=== PATIENT | male | born 1975 | race Caucasian/White ===

== ENCOUNTER 2017-02-08 11:21 | Day surgery (SDC) | payer MEDICARE, OTHER ==
--- NOTE | 2017-02-08 07:11 | P.GSHP ---
History of Present Illness H&P Date: 02/08/17 CHIEF COMPLAINT: GERD and colon screen HISTORY OF PRESENT ILLNESS: The patient is a 41-year-old male who presents reports gastroesophageal reflux disease and need for colon screen for high-risk colon polyps. Upper and lower endoscopy were offered for further evaluation and management. PAST MEDICAL HISTORY: Please see list. PAST SURGICAL HISTORY: Please see list. MEDICATIONS: Please see list. ALLERGIES: Please see list. SOCIAL HISTORY: No illicit drug use FAMILY HISTORY: No reports of Crohn disease or ulcerative colitis. REVIEW OF ORGAN SYSTEMS: CONSTITUTIONAL: No reports of fevers or chills. GI: Denies any blood in stools or constipation. PHYSICAL EXAM: VITAL SIGNS: Stable GENERAL: Well-developed pleasant in no acute distress. HEENT: No scleral icterus. Extraocular movements grossly intact. Moist buccal mucosa. NECK: Supple without lymphadenopathy. CHEST: Unlabored respirations. Equal bilateral excursions. CARDIOVASCULAR: Regular rate and rhythm. Distal 2+ pulses. ABDOMEN: Soft, nondistended. MUSCULOSKELETAL: No clubbing, cyanosis, or edema. ASSESSMENT: 1. Gastroesophageal reflux disease 2. Colon screen. PLAN: 1. Recommend proceeding with an upper and lower endoscopy
[2017-02-08 12:04] VITALS: TEMP 97.8
[2017-02-08] MEDS ORDERED: LIDOCAINE 1% 20 ML VIAL (10MG/ML) FOR IV START INTRADERMA PRN (12:04)
[2017-02-08] MEDS ORDERED: LACTATED RINGERS 1,000 ML IV SCH (12:04)
[2017-02-08 12:09] LABS: Glucose,Whole Blood 99 mg/dL (75-99)
[2017-02-08] MEDS ORDERED: PROPOFOL 10 MG/ML 20 ML VIAL IV ONE (12:15)
[2017-02-08] MEDS ORDERED: LIDOCAINE 1% INJ 10MG/ML (20 ML MDV) ONE (12:15)
--- NOTE | 2017-02-08 12:52 | P.PCN ---
Date of Procedure: 02/08/17 Preoperative Diagnosis: Postoperative Diagnosis: Procedure(s) Performed: Implants: Indications for Procedure: Operative Findings: Description of Procedure: PREOPERATIVE DIAGNOSIS: Gastritis. POSTOPERATIVE DIAGNOSIS: Chronic gastritis with stigmata of prior bleed Gastroesophageal reflux disease. OPERATION: Esophagogastroduodenoscopy with biopsies along antrum. SURGEON: Kailey Reynolds MD ANESTHESIA: MAC. INDICATIONS: The patient is a 41-year-old female who presents with a history of reflux disease. Benefits and risks of the procedure were described. Informed consent was obtained. DESCRIPTION: The patient was brought into the endoscopy suite and laid in the left lateral decubitus position. An Olympus gastroscope was passed along the posterior oropharynx down to the distal esophagus where the squamocolumnar junction was encountered at 45 cm from the incisors. The stomach was entered and minimal bile reflux was found. Additional findings are listed below. Biopsies with cold forceps were obtained of the antrum. The first through third portion of the duodenum was examined and unremarkable. Retroflexion of the scope confirmed Hill grade 3 lower esophageal valve. The squamocolumnar junction demostrated no LA grade A erosive esophagitis. The stomach was desufflated. The patient tolerated the procedure well. FINDINGS: Squamocolumnar junction 45 cm from the incisors. Hill grade 3 lower esophageal valve. No LA grade A erosive esophagitis. No active duodenitis. Chronic gastritis with stigmata of prior bleed RECOMMENDATIONS: Upper endoscopy as needed.
--- NOTE | 2017-02-08 12:54 | P.PCN ---
Date of Procedure: 02/08/17 Preoperative Diagnosis: Postoperative Diagnosis: Procedure(s) Performed: Implants: Indications for Procedure: Operative Findings: Description of Procedure: PREOPERATIVE DIAGNOSIS: Blood in stools. POSTOPERATIVE DIAGNOSIS: Blood in stools. Diverticulosis, scattered. OPERATION: Colonoscopy to the ileocecal valve and appendiceal orifice. SURGEON: Kailey Reynolds MD. ANESTHESIA: MAC. INDICATIONS: The patient is a 41-year-old female who presents with history of blood in stools. Benefits and risks were described and informed consent was obtained. DESCRIPTION OF PROCEDURE: The patient had undergone Gatorade, MiraLAX and Dulcolax prep. He had been brought into the operating room and laid in the left lateral decubitus position. After adequate intravenous sedation, the rectum was examined with 2% lidocaine jelly. No external hemorrhoids were encountered. The rectal tone was within normal limits. No lesions were palpated in the rectal vault. The prostate was smooth and without abnormality. An Olympus colonoscope was advanced until the ileocecal valve and appendiceal orifice were clearly viewed. The prep was excellent with clear visualization of the mucosal folds. The scope was removed with visualization of each mucosal fold. Scattered diverticulosis was encountered. No colonic polyps were found. No evidence of focal colitis was found. Retroflexion of the scope demonstrated grade 1 internal hemorrhoids without active bleeding or inflammation. The colon was desufflated. The patient had tolerated the procedure well. Withdrawal time was over 6 minutes. FINDINGS: Internal hemorrhoids, grade 1 No external prolapsed hemorrhoids. No arteriovenous malformations. No adenomatous polyps. No focal colitis. RECOMMENDATIONS: Lower endoscopy per screening guidelines at age 50. Plan - Discharge Summary New Discharge Prescriptions: No Action OLANZapine [ZyPREXA] 10 mg PO DAILY Lisinopril [Zestril] 2.5 mg PO DAILY Levothyroxine Sodium 125 mcg PO DAILY busPIRone HCL 10 mg PO BID OLANZapine [ZyPREXA] 5 mg PO HS [place] Carbonate ER [Lithobid] 450 mg PO BID Pioglitazone HCl 45 mg PO DAILY Atorvastatin Calcium [Lipitor] 10 mg PO HS metFORMIN HCL [Glucophage] 1,000 mg PO BID Divalproex [Depakote] 1,000 mg PO BID levETIRAcetam [Keppra] 500 mg PO BID Discharge Medication List Atorvastatin Calcium [Lipitor] 10 mg PO HS 02/08/17 [History] Divalproex [Depakote] 1,000 mg PO BID 02/08/17 [History] Levothyroxine Sodium 125 mcg PO DAILY 02/08/17 [History] Lisinopril [Zestril] 2.5 mg PO DAILY 02/08/17 [History] [place] Carbonate ER [Lithobid] 450 mg PO BID 02/08/17 [History] OLANZapine [ZyPREXA] 5 mg PO HS 02/08/17 [History] OLANZapine [ZyPREXA] 10 mg PO DAILY 02/08/17 [History] Pioglitazone HCl 45 mg PO DAILY 02/08/17 [History] busPIRone HCL 10 mg PO BID 02/08/17 [History] levETIRAcetam [Keppra] 500 mg PO BID 02/08/17 [History] metFORMIN HCL [Glucophage] 1,000 mg PO BID 02/08/17 [History]
[2017-02-08 13:19] VITALS: BP 124/84; PULSE 67; RESP 18
== END 2017-02-08 13:22 | disposition home or self-care (01) ==
LOC: ORWHC2ENDO 11:21
PROVIDERS: ATTEND Surgery Plastic and Reconstructive Surgery
DX: K57.30 Diverticulosis of large intestine without perforation or abscess without bleeding (principal); K64.0 First degree hemorrhoids; K29.50 Unspecified chronic gastritis without bleeding; I10 Essential (primary) hypertension; E11.9 Type 2 diabetes mellitus without complications; Z79.84 Long term (current) use of oral hypoglycemic drugs; G40.909 Epilepsy, unspecified, not intractable, without status epilepticus; Z79.899 Other long term (current) drug therapy
CPT/HCPCS: 88305; 88342; 45378; 43239; J2001; J2704

== ENCOUNTER → 2017-03-17 | Outpatient (CLI) | payer MEDICARE, OTHER | END | disposition home or self-care (01) | LOC: LABWHC1 07:45 | PROVIDERS: ATTEND Psychiatry & Neurology Neurology | DX: G40.309 Generalized idiopathic epilepsy and epileptic syndromes, not intractable, without status epilepticus (principal) | CPT/HCPCS: 36415; 80164; 80177 ==

== ENCOUNTER → 2017-05-20 | Outpatient (CLI) | payer MEDICARE, OTHER ==
[2017-05-20 10:38] LABS: Hemoglobin A1C 6.1 % (4.2-6.1)
== END | disposition home or self-care (01) ==
LOC: LABWHC1 08:16
PROVIDERS: ATTEND Psychiatry & Neurology Neurology
DX: E11.9 Type 2 diabetes mellitus without complications (principal); E13.9 Other specified diabetes mellitus without complications
CPT/HCPCS: 36415; 80164; 80177; 83036

== ENCOUNTER 2018-12-03 09:18 | Inpatient (IN) | payer MEDICARE, OTHER ==
[2018-12-03] MEDS ORDERED: SODIUM CHLORIDE 0.9% 1,000 ML IV STA (09:51)
--- NOTE | 2018-12-03 09:59 | ED ---
Weakness HPI <Chandan Mahan - Last Filed: 12/03/18 14:32> - General Source: patient, family, EMS, RN notes reviewed Mode of arrival: EMS Limitations: no limitations <Lalo Pop - Last Filed: 12/03/18 14:37> - General Chief complaint: Weakness Stated complaint: weakness Time Seen by Provider: 12/03/18 09:38 - History of Present Illness Initial comments: This a 43-year-old male presents emergency department via EMS with chief complaint of weakness. Father room states that he's had progressive weakness the last few days with increasing cough congestion. Patient's had reported fever at home. Patient states he just feels rundown. He father did state that there is been some recent medication changes but is not exactly sure which medications these are. Patient has had some tremoring there is had this in the past. Patient denies chest pain, headache, dizziness or focal weakness. He's had some nausea no vomiting no diarrhea no constipation. Patient is developmentally delayed, history of diabetes, Hyperlipidemia, seizure disorder, hyperthyroidism. (Lalo Pop) - Related Data Home Medications Medication Instructions Recorded Confirmed Atorvastatin Calcium [Lipitor] 10 mg PO HS 02/08/17 12/03/18 Divalproex [Depakote] 1,000 mg PO BID 02/08/17 12/03/18 Levothyroxine Sodium 125 mcg PO DAILY 02/08/17 12/03/18 Lisinopril [Zestril] 2.5 mg PO DAILY 02/08/17 12/03/18 [place] Carbonate ER [Lithobid] 450 mg PO BID 02/08/17 12/03/18 Pioglitazone HCl 45 mg PO DAILY 02/08/17 12/03/18 busPIRone HCL 10 mg PO BID 02/08/17 12/03/18 levETIRAcetam [Keppra] 500 mg PO BID 02/08/17 12/03/18 metFORMIN HCL [Glucophage] 1,000 mg PO BID 02/08/17 12/03/18 Allergies Allergy/AdvReac Type Severity Reaction Status Date / Time No Known Allergies Allergy Verified 12/03/18 10:09 Review of Systems ROS Other: All systems not noted in ROS Statement are negative. <Chandan Mahan - Last Filed: 12/03/18 14:32> ROS Other: All systems not noted in ROS Statement are negative. <Lalo Pop - Last Filed: 12/03/18 14:37> ROS Statement: Those systems with pertinent positive or pertinent negative responses have been documented in the HPI. Past Medical History Past Medical History: Diabetes Mellitus, Hyperlipidemia, Seizure Disorder, Thyr oid Disorder Additional Past Medical History / Comment(s): developmentally delayed; anemia History of Any Multi-Drug Resistant Organisms: None Reported Past Surgical History: No Surgical Hx Reported Past Anesthesia/Blood Transfusion Reactions: No Reported Reaction Past Psychological History: No Psychological Hx Reported Smoking Status: Never smoker Past Alcohol Use History: None Reported Past Drug Use History: None Reported <Lalo Pop - Last Filed: 12/03/18 14:37> General Exam Limitations: no limitations General appearance: alert, in no apparent distress, lethargic Head exam: Present: atraumatic, normocephalic, normal inspection Eye exam: Present: normal appearance, PERRL, EOMI. Absent: scleral icterus, conjunctival injection, periorbital swelling ENT exam: Present: normal exam, normal oropharynx, mucous membranes moist Neck exam: Present: normal inspection, full ROM. Absent: tenderness, me ningismus, lymphadenopathy Respiratory exam: Present: rales, rhonchi. Absent: normal lung sounds bilaterally, respiratory distress, wheezes, stridor Cardiovascular Exam: Present: regular rate, normal rhythm, normal heart sounds. Absent: systolic murmur, diastolic murmur, rubs, gallop, clicks GI/Abdominal exam: Present: soft, normal bowel sounds. Absent: distended, tenderness, guarding, rebound, rigid Neurological exam: Present: alert, oriented X3, CN II-XII intact Skin exam: Present: warm, dry, intact, normal color. Absent: rash <Lalo Pop - Last Filed: 12/03/18 14:37> Course Vital Signs 12/03/18 12/03/18 12/03/18 09:26 12:30 14:25 Temperature 98.6 F Pulse Rate 85 77 92 Respiratory 22 18 18 Rate Blood Pressure 122/70 116/56 113/54 O2 Sat by Pulse 99 99 98 Oximetry Medical Decision Making - Lab Data Result diagrams: 12/03/18 10:14 12/03/18 10:14 <Chandan Mahan - Last Filed: 12/03/18 14:32> - Lab Data Result diagrams: 12/03/18 10:14 12/03/18 10:14 <Lalo Pop - Last Filed: 12/03/18 14:37> - Medical Decision Making Case discussed with practitioner Louann. Case also discussed with Dr. go, who will admit covering for Dr. Hermosillo. He does request nephrology consult and psychology consult. (Chandan Mahan) - Lab Data Lab Results 12/03/18 12/03/18 12/03/18 Range/Units 10:14 10:14 10:14 WBC 8.6 (3.8-10.6) k/uL RBC 3.77 L (4.30-5.90) m/uL Hgb 10.8 L (13.0-17.5) gm/dL Hct 36.0 L (39.0-53.0) % MCV 95.7 (80.0-100.0) fL MCH 28.6 (25.0-35.0) pg MCHC 29.9 L (31.0-37.0) g/dL RDW 13.4 (11.5-15.5) % Plt Count 240 (150-450) k/uL Neutrophils % 66 % Lymphocytes % 16 % Monocytes % 15 % Eosinophils % 1 % Basophils % 0 % Neutrophils # 5.7 (1.3-7.7) k/uL Lymphocytes # 1.4 (1.0-4.8) k/uL Monocytes # 1.3 H (0-1.0) k/uL Eosinophils # 0.1 (0-0.7) k/uL Basophils # 0.0 (0-0.2) k/uL PT (9.0-12.0) sec INR (<1.2) APTT (22.0-30.0) sec Sodium 140 (137-145) mmol/L Potassium 4.7 (3.5-5.1) mmol/L Chloride 107 (98-107) mmol/L Carbon Dioxide 29 (22-30) mmol/L Anion Gap 4 mmol/L BUN 25 H (9-20) mg/dL Creatinine 1.65 H (0.66-1.25) mg/dL Est GFR (CKD-EPI)AfAm 58 (>60 ml/min/1.73 sqM) Est GFR (CKD-EPI)NonAf 50 (>60 ml/min/1.73 sqM) Glucose 77 (74-99) mg/dL Plasma Lactic Acid Roly 1.1 (0.7-2.0) mmol/L Calcium 9.7 (8.4-10.2) mg/dL Magnesium 2.9 H (1.6-2.3) mg/dL Total Bilirubin 0.6 (0.2-1.3) mg/dL AST 21 (17-59) U/L ALT 29 (21-72) U/L Alkaline Phosphatase 55 (38-126) U/L Troponin I (0.000-0.034) ng/mL NT-Pro-B Natriuret Pep pg/mL Total Protein 6.4 (6.3-8.2) g/dL Albumin 3.8 (3.5-5.0) g/dL Urine Color Urine Appearance (Clear) Urine pH (5.0-8.0) Ur Specific [place] (1.001-1.035) Urine Protein (Negative) Urine Glucose (UA) (Negative) Urine Ketones (Negative) Urine Blood (Negative) Urine Nitrite (Negative) Urine Bilirubin (Negative) Urine Urobilinogen (<2.0) mg/dL Ur Leukocyte Esterase (Negative) Valproic Acid ug/mL [place] mmol/L Influenza Type A RNA (Not Detectd) Influenza Type B (PCR) (Not Detectd) 12/03/18 12/03/18 12/03/18 Range/Units 10:14 10:14 10:14 WBC (3.8-10.6) k/uL RBC (4.30-5.90) m/uL Hgb (13.0-17.5) gm/dL Hct (39.0-53.0) % MCV (80.0-100.0) fL MCH (25.0-35.0) pg MCHC (31.0-37.0) g/dL RDW (11.5-15.5) % Plt Count (150-450) k/uL Neutrophils % % Lymphocytes % % Monocytes % % Eosinophils % % Basophils % % Neutrophils # (1.3-7.7) k/uL Lymphocytes # (1.0-4.8) k/uL Monocytes # (0-1.0) k/uL Eosinophils # (0-0.7) k/uL Basophils # (0-0.2) k/uL PT 10.4 (9.0-12.0) sec INR 1.0 (<1.2) APTT 21.6 L (22.0-30.0) sec Sodium (137-145) mmol/L Potassium (3.5-5.1) mmol/L Chloride (98-107) mmol/L Carbon Dioxide (22-30) mmol/L Anion Gap mmol/L BUN (9-20) mg/dL Creatinine (0.66-1.25) mg/dL Est GFR (CKD-EPI)AfAm (>60 ml/min/1.73 sqM) Est GFR (CKD-EPI)NonAf (>60 ml/min/1.73 sqM) Glucose (74-99) mg/dL Plasma Lactic Acid Roly (0.7-2.0) mmol/L Calcium (8.4-10.2) mg/dL Magnesium (1.6-2.3) mg/dL Total Bilirubin (0.2-1.3) mg/dL AST (17-59) U/L ALT (21-72) U/L Alkaline Phosphatase (38-126) U/L Troponin I <0.012 (0.000-0.034) ng/mL NT-Pro-B Natriuret Pep 67 pg/mL Total Protein (6.3-8.2) g/dL Albumin (3.5-5.0) g/dL Urine Color Urine Appearance (Clear) Urine pH (5.0-8.0) Ur Specific [place] (1.001-1.035) Urine Protein (Negative) Urine Glucose (UA) (Negative) Urine Ketones (Negative) Urine Blood (Negative) Urine Nitrite (Negative) Urine Bilirubin (Negative) Urine Urobilinogen (<2.0) mg/dL Ur Leukocyte Esterase (Negative) Valproic Acid ug/mL [place] mmol/L Influenza Type A RNA (Not Detectd) Influenza Type B (PCR) (Not Detectd) 12/03/18 12/03/18 12/03/18 Range/Units 10:14 10:14 12:27 WBC (3.8-10.6) k/uL RBC (4.30-5.90) m/uL Hgb (13.0-17.5) gm/dL Hct (39.0-53.0) % MCV (80.0-100.0) fL MCH (25.0-35.0) pg MCHC (31.0-37.0) g/dL RDW (11.5-15.5) % Plt Count (150-450) k/uL Neutrophils % % Lymphocytes % % Monocytes % % Eosinophils % % Basophils % % Neutrophils # (1.3-7.7) k/uL Lymphocytes # (1.0-4.8) k/uL Monocytes # (0-1.0) k/uL Eosinophils # (0-0.7) k/uL Basophils # (0-0.2) k/uL PT (9.0-12.0) sec INR (<1.2) APTT (22.0-30.0) sec Sodium (137-145) mmol/L Potassium (3.5-5.1) mmol/L Chloride (98-107) mmol/L Carbon Dioxide (22-30) mmol/L Anion Gap mmol/L BUN (9-20) mg/dL Creatinine (0.66-1.25) mg/dL Est GFR (CKD-EPI)AfAm (>60 ml/min/1.73 sqM) Est GFR (CKD-EPI)NonAf (>60 ml/min/1.73 sqM) Glucose (74-99) mg/dL Plasma Lactic Acid Roly (0.7-2.0) mmol/L Calcium (8.4-10.2) mg/dL Magnesium (1.6-2.3) mg/dL Total Bilirubin (0.2-1.3) mg/dL AST (17-59) U/L ALT (21-72) U/L Alkaline Phosphatase (38-126) U/L Troponin I (0.000-0.034) ng/mL NT-Pro-B Natriuret Pep pg/mL Total Protein (6.3-8.2) g/dL Albumin (3.5-5.0) g/dL Urine Color Light Yellow Urine Appearance Clear (Clear) Urine pH 6.5 (5.0-8.0) Ur Specific [place] 1.010 (1.001-1.035) Urine Protein Negative (Negative) Urine Glucose (UA) Negative (Negative) Urine Ketones Negative (Negative) Urine Blood Negative (Negative) Urine Nitrite Negative (Negative) Urine Bilirubin Negative (Negative) Urine Urobilinogen <2.0 (<2.0) mg/dL Ur Leukocyte Esterase Negative (Negative) Valproic Acid 110.9 ug/mL [place] 3.6 H* mmol/L Influenza Type A RNA Not Detected (Not Detectd) Influenza Type B (PCR) Not Detected (Not Detectd) Disposition <Chandan Mahan - Last Filed: 12/03/18 14:32> <aLlo Pop - Last Filed: 12/03/18 14:37> Clinical Impression: [place] toxicity, Weakness, Acute kidney injury Disposition: ADMITTED IP TO THIS HOSP Condition: Fair Referrals: Paulino Hermosillo MD [Primary Care Provider] - 1-2 days
[2018-12-03 10:30] LABS: Basophils % (A) 0 %; Eosinophils # (A) 0.1 k/uL (0-0.7); Eosinophils % (A) 1 %; HGB 10.8 gm/dL (13.0-17.5); Lymphocytes # (A) 1.4 k/uL (1.0-4.8); Lymphocytes % (A) 16 %; MCH 28.6 pg (25.0-35.0); MCHC 29.9 g/dL (31.0-37.0); MCV 95.7 fL (80.0-100.0); Monocytes # (A) 1.3 k/uL (0-1.0); Monocytes % (A) 15 %; Neutrophils # (A) 5.7 k/uL (1.3-7.7); Neutrophils % (A) 66 %; Platelet Count 240 k/uL (150-450); RBC 3.77 m/uL (4.30-5.90); RDW 13.4 % (11.5-15.5); WBC 8.6 k/uL (3.8-10.6)
[2018-12-03 10:42] LABS: Albumin 3.8 g/dL (3.5-5.0); Appearance,Urine Clear (Clear); Bilirubin,Urine Negative (Negative); Blood,Urine Negative (Negative); Calcium 9.7 mg/dL (8.4-10.2); Color,Urine Light Yellow; Glucose,Urine (UA) Negative (Negative); Ketones,Urine Negative (Negative); Leukocyte Esterase,Urine Negative (Negative); Magnesium 2.9 mg/dL (1.6-2.3); Nitrite,Urine Negative (Negative); PH, Urine 6.5 (5.0-8.0); Potassium 4.7 mmol/L (3.5-5.1); Protein,Urine Negative (Negative); Total Bilirubin 0.6 mg/dL (0.2-1.3); Total Protein 6.4 g/dL (6.3-8.2); Urobilinogen,Urine <2.0 mg/dL (<2.0)
--- NOTE | 2018-12-03 10:44 | XR ---
EXAMINATION TYPE: XR chest 2V DATE OF EXAM: 12/03/2018 COMPARISON: NONE HISTORY: Weakness, tremors, and flulike symptoms TECHNIQUE: Frontal and lateral views of the chest are obtained. FINDINGS: There is no focal air space opacity, pleural effusion, or pneumothorax seen. The cardiac silhouette size is within normal limits. The osseous structures are intact. IMPRESSION: No acute cardiopulmonary process.
[2018-12-03 10:45] LABS: Prothrombin Time 10.4 sec (9.0-12.0)
[2018-12-03 11:05] LABS: Partial Thromboplastin Time 21.6 sec (22.0-30.0)
[2018-12-03] MEDS ORDERED: SODIUM CHLORIDE 0.9% 1,000 ML IV ONE (13:25)
[2018-12-03] MEDS ORDERED: SODIUM CHLORIDE 0.9% 1,000 ML IV SCH (13:30)
[2018-12-03 14:01] LABS: Valproic Acid (Depakene) 110.9 ug/mL
[2018-12-03 14:06] LABS: Lithium 3.6 mmol/L
--- NOTE | 2018-12-03 14:18 | CT ---
EXAMINATION TYPE: CT brain wo con DATE OF EXAM: 12/03/2018 COMPARISON: MRI brain 05/14/2016 INDICATION: Weakness DLP: 1164.4 mGycm, Automated exposure control for dose reduction was used. CONTRAST: None CT of the brain is performed utilizing 3 mm thick sections through the posterior fossa and 3 mm thick sections through the remaining calvarium. Study is performed within 24 hours of arrival to the hosp [facility]. No abnormal hyperdensity is present to suggest an acute intracranial hemorrhage. No mass lesion is evident. No acute infarcts are evident. Ventricles and sulci are appropriate for the patient age. Paranasal sinuses and mastoid air cells within the [id number] are clear. IMPRESSIONS: 1. No acute intracranial process.
[2018-12-03 15:07] LABS: Glucose,Whole Blood 76 mg/dL (75-99)
[2018-12-03] MEDS: metFORMIN 500 MG TAB PO SCH (19:50)
[2018-12-03] MEDS: ATORVASTATIN 10 MG TAB PO SCH (19:56)
[2018-12-03] MEDS: levETIRAcetam 500 MG TAB PO SCH (19:57)
[2018-12-03] MEDS: busPIRone HCl 10 MG TAB PO SCH (19:57)
[2018-12-03] MEDS: DIVALPROEX 500 MG TABLET.DR PO SCH (19:58)
[2018-12-03] MEDS: SODIUM CHLORIDE 0.9% 1,000 ML IV SCH (20:01)
[2018-12-03 20:18] LABS: Acetaminophen <10.0 ug/mL; Anion Gap 6 mmol/L; Carbon Dioxide 25 mmol/L (22-30); Chloride 112 mmol/L (98-107); Potassium 4.9 mmol/L (3.5-5.1); Sodium 143 mmol/L (137-145)
[2018-12-03 20:23] LABS: Lithium 2.7 mmol/L
[2018-12-03] MEDS: LITHIUM CARBONATE ER 450 MG TABLET.ER PO SCH (21:06)
[2018-12-04 01:12] LABS: Potassium 4.8 mmol/L (3.5-5.1)
[2018-12-04 01:32] LABS: Lithium 2.6 mmol/L
[2018-12-04] MEDS: SODIUM CHLORIDE 0.9% 1,000 ML IV SCH ×4 (02:39→20:33)
[2018-12-04 05:55] LABS: Glucose,Whole Blood 75 mg/dL (75-99)
[2018-12-04] MEDS: metFORMIN 500 MG TAB PO SCH (06:08)
[2018-12-04] MEDS ORDERED: LEVOTHYROXINE 125 MCG TAB PO SCH (06:30)
[2018-12-04 07:13] LABS: Potassium 4.8 mmol/L (3.5-5.1)
[2018-12-04 07:22] LABS: Lithium 2.4 mmol/L
[2018-12-04] MEDS ORDERED: metFORMIN 500 MG TAB PO SCH (07:30)
[2018-12-04] MEDS: LITHIUM CARBONATE ER 450 MG TABLET.ER PO SCH (08:29)
[2018-12-04] MEDS: levETIRAcetam 500 MG TAB PO SCH (08:36)
[2018-12-04] MEDS: DIVALPROEX 500 MG TABLET.DR PO SCH ×2 (08:36→11:27)
[2018-12-04] MEDS: busPIRone HCl 10 MG TAB PO SCH ×2 (08:37→19:54)
[2018-12-04] MEDS ORDERED: PIOGLITAZONE 45 MG TAB PO SCH (09:00)
--- NOTE | 2018-12-04 09:43 | P.CN ---
Psychiatric Consult - . Consult:: 12/04/18 09:38 [facility] toxicity Assessment and Plan Assessment: This a 43-year-old male presents emergency department via EMS with chief complaint of weakness. Father room states that he's had progressive weakness the last few days with increasing cough congestion. Patient's had reported fever at home. Patient states he just feels rundown. He father did state that there is been some recent medication changes but is not exactly sure which medications these are. Patient has had some tremoring there is had this in the past. Patient denies chest pain, headache, dizziness or focal weakness. He's had some nausea no vomiting no diarrhea no constipation. Patient is developmentally delayed, history of diabetes, Hyperlipidemia, seizure disorder, hyperthyroidism. - Related Data Home Medications Medication Instructions Recorded Confirmed Atorvastatin Calcium [Lipitor] 10 mg PO HS 02/08/17 12/03/18 Divalproex [Depakote] 1,000 mg PO BID 02/08/17 12/03/18 Levothyroxine Sodium 125 mcg PO DAILY 02/08/17 12/03/18 Lisinopril [Zestril] 2.5 mg PO DAILY 02/08/17 12/03/18 [facility] Carbonate ER [Lithobid] 450 mg PO BID 02/08/17 12/03/18 Pioglitazone HCl 45 mg PO DAILY 02/08/17 12/03/18 busPIRone HCL 10 mg PO BID 02/08/17 12/03/18 levETIRAcetam [Keppra] 500 mg PO BID 02/08/17 12/03/18 metFORMIN HCL [Glucophage] 1,000 mg PO BID 02/08/17 12/03/18 Allergies Allergy/AdvReac Type Severity Reaction Status Date / Time No Known Allergies Allergy Verified 12/03/18 10:09 Past Medical History Past Medical History: Diabetes Mellitus, Hyperlipidemia, Seizure Disorder, Thyroid Disorder Additional Past Medical History / Comment(s): developmentally delayed; anemia History of Any Multi-Drug Resistant Organisms: None Reported Past Surgical History: No Surgical Hx Reported Past Anesthesia/Blood Transfusion Reactions: No Reported Reaction Past Psychological History: No Psychological Hx Reported Smoking Status: Never smoker Past Alcohol Use History: None Reported Past Drug Use History: None Reported Lab Results 12/03/18 12/03/18 12/03/18 Range/Units 10:14 10:14 10:14 WBC 8.6 (3.8-10.6) k/uL RBC 3.77 L (4.30-5.90) m/uL Hgb 10.8 L (13.0-17.5) gm/dL Hct 36.0 L (39.0-53.0) % MCV 95.7 (80.0-100.0) fL MCH 28.6 (25.0-35.0) pg MCHC 29.9 L (31.0-37.0) g/dL RDW 13.4 (11.5-15.5) % Plt Count 240 (150-450) k/uL Neutrophils % 66 % Lymphocytes % 16 % Monocytes % 15 % Eosinophils % 1 % Basophils % 0 % Neutrophils # 5.7 (1.3-7.7) k/uL Lymphocytes # 1.4 (1.0-4.8) k/uL Monocytes # 1.3 H (0-1.0) k/uL Eosinophils # 0.1 (0-0.7) k/uL Basophils # 0.0 (0-0.2) k/uL PT (9.0-12.0) sec INR (<1.2) APTT (22.0-30.0) sec Sodium 140 (137-145) mmol/L Potassium 4.7 (3.5-5.1) mmol/L Chloride 107 (98-107) mmol/L Carbon Dioxide 29 (22-30) mmol/L Anion Gap 4 mmol/L BUN 25 H (9-20) mg/dL Creatinine 1.65 H (0.66-1.25) mg/dL Est GFR (CKD-EPI)AfAm 58 (>60 ml/min/1.73 sqM) Est GFR (CKD-EPI)NonAf 50 (>60 ml/min/1.73 sqM) Glucose 77 (74-99) mg/dL Plasma Lactic Acid Roly 1.1 (0.7-2.0) mmol/L Calcium 9.7 (8.4-10.2) mg/dL Magnesium 2.9 H (1.6-2.3) mg/dL Total Bilirubin 0.6 (0.2-1.3) mg/dL AST 21 (17-59) U/L ALT 29 (21-72) U/L Alkaline Phosphatase 55 (38-126) U/L Troponin I (0.000-0.034) ng/mL NT-Pro-B Natriuret Pep pg/mL Total Protein 6.4 (6.3-8.2) g/dL Albumin 3.8 (3.5-5.0) g/dL Urine Color Urine Appearance (Clear) Urine pH (5.0-8.0) Ur Specific [place] (1.001-1.035) Urine Protein (Negative) Urine Glucose (UA) (Negative) Urine Ketones (Negative) Urine Blood (Negative) Urine Nitrite (Negative) Urine Bilirubin (Negative) Urine Urobilinogen (<2.0) mg/dL Ur Leukocyte Esterase (Negative) Valproic Acid ug/mL [facility] mmol/L Influenza Type A RNA (Not Detectd) Influenza Type B (PCR) (Not Detectd) 12/03/18 12/03/18 12/03/18 Range/Units 10:14 10:14 10:14 WBC (3.8-10.6) k/uL RBC (4.30-5.90) m/uL Hgb (13.0-17.5) gm/dL Hct (39.0-53.0) % MCV (80.0-100.0) fL MCH (25.0-35.0) pg MCHC (31.0-37.0) g/dL RDW (11.5-15.5) % Plt Count (150-450) k/uL Neutrophils % % Lymphocytes % % Monocytes % % Eosinophils % % Basophils % % Neutrophils # (1.3-7.7) k/uL Lymphocytes # (1.0-4.8) k/uL Monocytes # (0-1.0) k/uL Eosinophils # (0-0.7) k/uL Basophils # (0-0.2) k/uL PT 10.4 (9.0-12.0) sec INR 1.0 (<1.2) APTT 21.6 L (22.0-30.0) sec Sodium (137-145) mmol/L Potassium (3.5-5.1) mmol/L Chloride (98-107) mmol/L Carbon Dioxide (22-30) mmol/L Anion Gap mmol/L BUN (9-20) mg/dL Creatinine (0.66-1.25) mg/dL Est GFR (CKD-EPI)AfAm (>60 ml/min/1.73 sqM) Est GFR (CKD-EPI)NonAf (>60 ml/min/1.73 sqM) Glucose (74-99) mg/dL Plasma Lactic Acid Roly (0.7-2.0) mmol/L Calcium (8.4-10.2) mg/dL Magnesium (1.6-2.3) mg/dL Total Bilirubin (0.2-1.3) mg/dL AST (17-59) U/L ALT (21-72) U/L Alkaline Phosphatase (38-126) U/L Troponin I <0.012 (0.000-0.034) ng/mL NT-Pro-B Natriuret Pep 67 pg/mL Total Protein (6.3-8.2) g/dL Albumin (3.5-5.0) g/dL Urine Color Urine Appearance (Clear) Urine pH (5.0-8.0) Ur Specific [place] (1.001-1.035) Urine Protein (Negative) Urine Glucose (UA) (Negative) Urine Ketones (Negative) Urine Blood (Negative) Urine Nitrite (Negative) Urine Bilirubin (Negative) Urine Urobilinogen (<2.0) mg/dL Ur Leukocyte Esterase (Negative) Valproic Acid ug/mL [facility] mmol/L Influenza Type A RNA (Not Detectd) Influenza Type B (PCR) (Not Detectd) 12/03/18 12/03/18 12/03/18 Range/Units 10:14 10:14 12:27 WBC (3.8-10.6) k/uL RBC (4.30-5.90) m/uL Hgb (13.0-17.5) gm/dL Hct (39.0-53.0) % MCV (80.0-100.0) fL MCH (25.0-35.0) pg MCHC (31.0-37.0) g/dL RDW (11.5-15.5) % Plt Count (150-450) k/uL Neutrophils % % Lymphocytes % % Monocytes % % Eosinophils % % Basophils % % Neutrophils # (1.3-7.7) k/uL Lymphocytes # (1.0-4.8) k/uL Monocytes # (0-1.0) k/uL Eosinophils # (0-0.7) k/uL Basophils # (0-0.2) k/uL PT (9.0-12.0) sec INR (<1.2) APTT (22.0-30.0) sec Sodium (137-145) mmol/L Potassium (3.5-5.1) mmol/L Chloride (98-107) mmol/L Carbon Dioxide (22-30) mmol/L Anion Gap mmol/L BUN (9-20) mg/dL Creatinine (0.66-1.25) mg/dL Est GFR (CKD-EPI)AfAm (>60 ml/min/1.73 sqM) Est GFR (CKD-EPI)NonAf (>60 ml/min/1.73 sqM) Glucose (74-99) mg/dL Plasma Lactic Acid Roly (0.7-2.0) mmol/L Calcium (8.4-10.2) mg/dL Magnesium (1.6-2.3) mg/dL Total Bilirubin (0.2-1.3) mg/dL AST (17-59) U/L ALT (21-72) U/L Alkaline Phosphatase (38-126) U/L Troponin I (0.000-0.034) ng/mL NT-Pro-B Natriuret Pep pg/mL Total Protein (6.3-8.2) g/dL Albumin (3.5-5.0) g/dL Urine Color Light Yellow Urine Appearance Clear (Clear) Urine pH 6.5 (5.0-8.0) Ur Specific [place] 1.010 (1.001-1.035) Urine Protein Negative (Negative) Urine Glucose (UA) Negative (Negative) Urine Ketones Negative (Negative) Urine Blood Negative (Negative) Urine Nitrite Negative (Negative) Urine Bilirubin Negative (Negative) Urine Urobilinogen <2.0 (<2.0) mg/dL Ur Leukocyte Esterase Negative (Negative) Valproic Acid 110.9 ug/mL [facility] 3.6 H* mmol/L Influenza Type A RNA Not Detected (Not Detectd) Influenza Type B (PCR) Not Detected (Not Detectd) Mental status examination found within normal Impression: [facility] toxicity: Stop lithium entirely wait for today's and get another lithium level next four days Thank you for the consult Floyd Nance do PhD (1) [facility] toxicity Current Visit: Yes Status: Acute Priority: Medium Code(s): T56.891A - TOXIC EFFECT OF OTH METALS, ACCIDENTAL (UNINTENTIONAL), INIT SNOMED Code(s): 292111436 Time with Patient: Less than 30
--- NOTE | 2018-12-04 10:36 | P.NPCON ---
History of Present Illness - Reason for Consult acute renal failure - History of Present Illness Reason for consultation: Acute kidney injury and lithium toxicity. History of present illness: Patient is a 43-year-old male seen in consultation for acute kidney injury and lithium toxicity. Patient's creatinine in May 2016 was near 1. This admission it was 1.65. Patient is maintained on lithium as an outpatient. [place] level was 3.6 on admission. He is currently maintained on normal saline at 1 50 mL an hour. [place] level is down to 2.4. Poison control was notified and are following the case. Patient is not a reliable historian due to developmental delay. Patient was brought to the hospital due to generalized weakness as well as cough. Chest x-ray revealed no acute pulmonary process. Brain CT was benign. Urine output has been very good according to the nurse. Metformin is held. Vital signs are stable. General: The patient appeared well nourished and normally developed. HEENT: Head exam is unremarkable. Neck is without jugular venous distension. LUNGS: Lungs are clear to auscultation and percussion. Breath sounds decreased. HEART: Rate and Rhythm are regular. First and second heart sounds normal. No murmurs, rubs or gallops. ABDOMEN: Abdominal exam reveals normal bowel sounds. Non-tender and non- distended. No evidence of peritonitis. EXTREMITITES: No clubbing, cyanosis, or edema. Past Medical History Past Medical History: Diabetes Mellitus, GERD/Reflux, Hyperlipidemia, Seizure Disorder, Thyroid Disorder Additional Past Medical History / Comment(s): Developmentally delayed, NIDDM type II, last seizure many years ago, hypothyroid, anemia History of Any Multi-Drug Resistant Organisms: None Reported Past Surgical History: No Surgical Hx Reported Additional Past Surgical History / Comment(s): EGD, colonoscopy Past Anesthesia/Blood Transfusion Reactions: No Reported Reaction Smoking Status: Never smoker - Past Family History Father Family Medical History: No Reported History Additional Family Medical History / Comment(s): Father is healthy and 78yrs old. Mother Additional Family Medical History / Comment(s): Mother is an alcoholic. Medications and Allergies Home Medications Medication Instructions Recorded Confirmed Type Atorvastatin Calcium [Lipitor] 10 mg PO HS 02/08/17 12/03/18 History Divalproex [Depakote] 1,000 mg PO BID 02/08/17 12/03/18 History Levothyroxine Sodium 125 mcg PO DAILY 02/08/17 12/03/18 History Lisinopril [Zestril] 2.5 mg PO DAILY 02/08/17 12/03/18 History [place] Carbonate ER [Lithobid] 450 mg PO BID 02/08/17 12/03/18 History Pioglitazone HCl 45 mg PO DAILY 02/08/17 12/03/18 History busPIRone HCL 10 mg PO BID 02/08/17 12/03/18 History levETIRAcetam [Keppra] 500 mg PO BID 02/08/17 12/03/18 History metFORMIN HCL [Glucophage] 1,000 mg PO BID 02/08/17 12/03/18 History Allergies Allergy/AdvReac Type Severity Reaction Status Date / Time No Known Allergies Allergy Verified 12/03/18 10:09 Physical Exam Vitals: Vital Signs Temp Pulse Pulse Resp BP BP Pulse Ox 12/04/18 08:00 99 F 103 H 18 125/58 95 12/04/18 04:00 101.0 F H 102 H 18 114/74 96 12/04/18 00:00 99.4 F 97 16 127/70 97 12/03/18 20:00 98 18 12/03/18 19:32 99.1 F 98 18 117/63 98 12/03/18 18:30 98.0 F 91 18 119/65 99 12/03/18 17:00 95 18 120/64 96 12/03/18 16:00 96 18 119/63 97 12/03/18 14:25 92 18 113/54 98 12/03/18 12:30 77 18 116/56 99 Intake and Output 12/03/18 12/04/18 12/04/18 22:59 06:59 14:59 Intake Total 250 0 Balance 250 0 Intake: Oral 250 0 Other: Voiding Method Diaper Diaper Diaper Incontinent Incontinent Incontinent # Voids 2 Weight 103.5 kg Results - Lab Results Most recent lab results Calcium 9.7 mg/dL (8.4-10.2) 12/03/18 10:14 Magnesium 2.9 mg/dL (1.6-2.3) H 12/03/18 10:14 12/03/18 10:14 12/04/18 05:32 Assessment and Plan Plan: Assessment: 1. Acute kidney injury versus chronic kidney disease. Etiology can be chronic interstitial nephritis from long-term lithium use or simply prerenal. UA is benign. 2. [place] toxicity. [place] level was 3.6 on admission and is down to 2.4 as of this morning. Unclear as to how long he's been on lithium. No diarrhea. No current tremors noted. 3. Benign hypertension. Controlled. 4. Diabetes mellitus. Plan: Continue normal saline at 150 mL an hour. [place] is held. Monitor levels closely. So far trending down. Avoid nephrotoxins. I will hold metformin and lisinopril for now as well. Continue to monitor renal function and urine output. Poison control is also following the case. Thank you for the consultation. I will continue to follow the patient with you during his hospital stay.
[2018-12-04] MEDS: LACTATED RINGERS 1,000 ML IV SCH (10:43)
[2018-12-04 11:20] LABS: Glucose,Whole Blood 91 mg/dL (75-99)
[2018-12-04] MEDS: VALPROATE SODIUM 500 MG in SODIUM CHLORIDE 0.9% 100 ML IVPB SCH ×2 (11:53→17:02)
[2018-12-04] MEDS: levETIRAcetam IV 500 MG in SODIUM CHLORIDE 0.9% 100 ML IVPB SCH ×2 (11:53→20:01)
[2018-12-04] MEDS ORDERED: LEVOTHYROXINE IVP 100 MCG/5 ML VIAL IV SCH (12:00)
[2018-12-04] MEDS: INSULIN ASPART (NovoLOG) 100 UNIT/ML VIAL SQ SCH ×3 (12:10→20:41)
[2018-12-04] MEDS: LEVOTHYROXINE IVP 100 MCG/5 ML VIAL IV SCH (12:17)
[2018-12-04] MEDS: PIPERACILLIN-TAZOBACTAM 3.375 GM in SODIUM CHLORIDE 0.9% 100 ML IVPB SCH ×2 (13:14→20:31)
--- NOTE | 2018-12-04 13:17 | HP ---
HISTORY AND PHYSICAL DATE OF ADMISSION: 12/03/2018 DATE OF SERVICE: 12/04/2018 PRESENTING COMPLAINT: Congested, tired. HISTORY OF PRESENTING COMPLAINT: This is a pleasant 43-year-old patient who follows with Dr. Hermosillo. Patient had developmental delay and is taken care of by his father. Chronic stable medical conditions include diabetes, GERD, hyperlipidemia, seizure disorder, hypothyroid. 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 Patient presented through the ER. Father is not at the bedside. With the EMS feeling weak, tired. The last few days increasing cough, congestion. Denying fever at home. Tired and run down. The patient is not sure about the change of medications. Patient also been having some tremors. The patient himself not really able to communicate. Patient denies any fevers, a bit tachycardic, slight tremors are present. Not really able to eat. REVIEW OF SYSTEMS: Cannot be done as patient is not really able to communicate, is awake, but is not really talking. PAST MEDICAL HISTORY: Diabetes, GERD, hyperlipidemia, seizure disorder, hypothyroid, developmental delay, last seizures many years ago, anemia. PAST SURGICAL HISTORY: EGD, colonoscopy. SOCIAL HISTORY: Lives with the father who is the caregiver. Goes to work every day, put together wires, cannot read or write. No smoking. No alcohol. FAMILY HISTORY: Patient cannot tell. HOME MEDICATIONS: 1. Metformin 1000 mg b.i.d. 2. Keppra 500 mg b.i.d. 3. BuSpar 10 mg b.i.d. 4. Actos 45 mg daily. 5. [place] 450 mg p.o. b.i.d. extended release. 6. Zestril 2.5 mg a day. 7. Levothyroxine 125 mcg a day. 8. Depakote 1000 mg b.i.d. 9. Lipitor 10 mg q.h.s. ALLERGIES: None. PHYSICAL EXAMINATION: Vital signs on presentation. temperature 101, pulse 102, respiration 18, blood pressure 104/74, pulse ox 96% on room air. GENERAL: Well-built, BMI 30.1. Lying in bed. Perspiring, tired-appearing. Some rattling is heard in the chest. EYES: Pupils equal, conjunctivae normal. HEENT: External appearance of nose an ears normal. Oral cavity a bit dry. JVD unable to assess. Mass not palpable. RESPIRATORY: Effort increased. LUNGS: Decreased breath sounds. Some expiratory crackles audible. CARDIOVASCULAR: First and second sounds are normal. No edema. ABDOMEN: Soft, nontender. Liver and spleen not palpable. LYMPHATIC: No lymph nodes palpable in neck or axillae. PSYCHIATRY: Patient is not really answering questions. NEUROLOGICAL: Pupils equal, no facial asymmetry. Moving all 4 limbs. INVESTIGATIONS: White count 8.6, hemoglobin 10.8, potassium 4.7, platelets 240, BUN 25, creatinine 1.65, lithium 3.6, repeat this morning was 2.4. EKG tracing personally reviewed by me shows normal sinus rhythm. Chest x-ray film personally reviewed by me shows questionable infiltrates. The final CT scan of the brain, nil acute. ASSESSMENT: 1. Acute lithium toxicity in the setting of renal failure with mental status changes, that is acute delirium and tremors. 2. Acute viral pneumonitis with a picture of sepsis. Patient has no white count, no obvious infiltrates, but we will add Zosyn to cover any secondary infection. 3. Diabetes mellitus type 2, on oral hypoglycemic. 4. Gastroesophageal reflux disease. 5. Hyperlipidemia. 6. Chronic epilepsy disorder. 7. Hypothyroidism. 8. Chronic developmental delay. 9. Obesity; body mass index 30.1. PLAN: The patient is put on IV fluids. Patient's seizure medications including Depakote and Keppra to be changed to IV, changed to levothyroxine to IV form every 48 hours. Follow Accu-Cheks. IV fluids will do aspiration precautions. All feeding is to be done 1 is to 1. The patient is also put on a monitor, both Nephrology and Psychiatry consultation was done. Expect the patient to be in the hospital at least 48 hours. MMODL / IJN: [id number] /
[2018-12-04 16:30] LABS: Glucose,Whole Blood 109 mg/dL (75-99)
[2018-12-04] MEDS: ATORVASTATIN 10 MG TAB PO SCH (19:54)
[2018-12-04 20:39] LABS: Glucose,Whole Blood 120 mg/dL (75-99)
[2018-12-05] MEDS: VALPROATE SODIUM 500 MG in SODIUM CHLORIDE 0.9% 100 ML IVPB SCH ×5 (00:56→23:57)
[2018-12-05] MEDS: LACTATED RINGERS 1,000 ML IV SCH ×2 (02:32→07:36)
[2018-12-05] MEDS: SODIUM CHLORIDE 0.9% 1,000 ML IV SCH ×2 (04:44→12:38)
[2018-12-05] MEDS: INSULIN ASPART (NovoLOG) 100 UNIT/ML VIAL SQ SCH ×4 (05:56→20:58)
[2018-12-05] MEDS: PIPERACILLIN-TAZOBACTAM 3.375 GM in SODIUM CHLORIDE 0.9% 100 ML IVPB SCH ×3 (06:02→21:52)
[2018-12-05 06:03] LABS: Anion Gap 6 mmol/L; Blood Urea Nitrogen 11 mg/dL (9-20); Calcium 9.1 mg/dL (8.4-10.2); Carbon Dioxide 23 mmol/L (22-30); Chloride 113 mmol/L (98-107); Glucose 115 mg/dL (74-99); Lithium 1.4 mmol/L; Magnesium 2.5 mg/dL (1.6-2.3); Potassium 4.8 mmol/L (3.5-5.1); Sodium 142 mmol/L (137-145)
[2018-12-05] MEDS: busPIRone HCl 10 MG TAB PO SCH ×2 (07:35→21:01)
[2018-12-05] MEDS: levETIRAcetam IV 500 MG in SODIUM CHLORIDE 0.9% 100 ML IVPB SCH ×2 (07:58→21:02)
[2018-12-05 11:16] LABS: Glucose,Whole Blood 124 mg/dL (75-99)
--- NOTE | 2018-12-05 11:19 | P.PN ---
Subjective Patient is seen in follow-up for acute kidney injury and lithium toxicity. GFR is back to baseline. Hematocrit is down to 1.4. Patient is not a reliable historian. He is maintained on IV fluids with normal saline running at 80 mL an hour. Denies chest pain or shortness of breath. He is nonoliguric. Vital signs are stable. General: The patient appeared well nourished and normally developed. HEENT: Head exam is unremarkable. Neck is without jugular venous distension. LUNGS: Breath sounds decreased. HEART: Rate and Rhythm are regular. First and second heart sounds normal. No murmurs, rubs or gallops. ABDOMEN: Abdominal exam reveals normal bowel sounds. Non-tender and non- distended. No evidence of peritonitis. EXTREMITITES: No clubbing, cyanosis, or edema. Objective - Vital Signs Vital signs: Vital Signs Temp 97.7 F 12/05/18 11:04 Pulse 90 12/05/18 11:06 Resp 20 12/05/18 11:06 BP 125/77 12/05/18 11:04 Pulse Ox 97 12/05/18 11:04 Intake & Output 12/04/18 12/05/18 12/05/18 18:59 06:59 18:59 Intake Total 0 1200 800 Output Total 550 Balance 0 650 800 Weight 101 kg Intake: Intake, IV Titration 1200 800 Amount Piperacillin-Tazobactam 3 100 .375 gm In Sodium Chloride 0.9% 100 ml @ 25 mls/hr IVPB Q8H [facility] Rx#: [id number] Sodium Chloride 0.9% 1, 1200 600 000 ml @ 150 mls/hr IV . Q6H40M [facility] Rx#:[id number] Valproate Sodium 500 mg 100 In Sodium Chloride 0.9% 100 ml @ 100 mls/hr IVPB Q6HR [facility] Rx#:[id number] Oral 0 0 Output: Urine 550 Other: Voiding Method Diaper Diaper Diaper Incontinent Incontinent Incontinent # Voids 3 1 - Labs CBC & Chem 7: 12/03/18 10:14 12/05/18 05:29 Labs: Abnormal Lab Results - Last 24 Hours (Table) 12/04/18 12/04/18 12/05/18 Range/Units 16:16 20:38 05:29 Chloride 113 H (98-107) mmol/L Glucose 115 H (74-99) mg/dL POC Glucose (mg/dL) 109 H 120 H (75-99) mg/dL Magnesium 2.5 H (1.6-2.3) mg/dL Microbiology - Last 24 Hours (Table) 12/03/18 10:28 Blood Culture - Preliminary Blood No Growth after 24 hours Assessment and Plan Plan: Assessment: 1. Acute kidney injury mostly prerenal improved with IV hydration. GFR back to baseline. Creatinine 0.94 today. UA is benign. 2. [place] toxicity. [place] level was 3.6 on admission and is down to 1.4 as of this morning. Unclear as to how long he's been on lithium. No diarrhea. No current tremors noted. 3. Benign hypertension. Controlled. 4. Diabetes mellitus. 5. Mild volume overload. Plan: Decrease rate of normal saline to 50 mL an hour. Continue to monitor renal function and urine output. Poison control is also following the case. Monitor volume and respiratory status closely.
--- NOTE | 2018-12-05 15:59 | P.CN ---
Psychiatric Consult - . Consult date: 12/05/18 Consult:: 12/04/18 09:38 Adin toxicity Assessment and Plan Assessment: This a 43-year-old male presents emergency department via EMS with chief complaint of weakness. Father room states that he's had progressive weakness the last few days with increasing cough congestion. Patient's had reported fever at home. Patient states he just feels rundown. He father did state that there is been some recent medication changes but is not exactly sure which medications these are. Patient has had some tremoring there is had this in the past. Patient denies chest pain, headache, dizziness or focal weakness. He's had some nausea no vomiting no diarrhea no constipation. Patient is developmentally delayed, history of diabetes, Hyperlipidemia, seizure disorder, hyperthyroidism. - Related Data Home Medications Medication Instructions Recorded Confirmed Atorvastatin Calcium [Lipitor] 10 mg PO HS 02/08/17 12/03/18 Divalproex [Depakote] 1,000 mg PO BID 02/08/17 12/03/18 Levothyroxine Sodium 125 mcg PO DAILY 02/08/17 12/03/18 Lisinopril [Zestril] 2.5 mg PO DAILY 02/08/17 12/03/18 Adin Carbonate ER [Lithobid] 450 mg PO BID 02/08/17 12/03/18 Pioglitazone HCl 45 mg PO DAILY 02/08/17 12/03/18 busPIRone HCL 10 mg PO BID 02/08/17 12/03/18 levETIRAcetam [Keppra] 500 mg PO BID 02/08/17 12/03/18 metFORMIN HCL [Glucophage] 1,000 mg PO BID 02/08/17 12/03/18 Allergies Allergy/AdvReac Type Severity Reaction Status Date / Time No Known Allergies Allergy Verified 12/03/18 10:09 Past Medical History Past Medical History: Diabetes Mellitus, Hyperlipidemia, Seizure Disorder, Thyroid Disorder Additional Past Medical History / Comment(s): developmentally delayed; anemia History of Any Multi-Drug Resistant Organisms: None Reported Past Surgical History: No Surgical Hx Reported Past Anesthesia/Blood Transfusion Reactions: No Reported Reaction Past Psychological History: No Psychological Hx Reported Smoking Status: Never smoker Past Alcohol Use History: None Reported Past Drug Use History: None Reported Lab Results 12/03/18 12/03/18 12/03/18 Range/Units 10:14 10:14 10:14 WBC 8.6 (3.8-10.6) k/uL RBC 3.77 L (4.30-5.90) m/uL Hgb 10.8 L (13.0-17.5) gm/dL Hct 36.0 L (39.0-53.0) % MCV 95.7 (80.0-100.0) fL MCH 28.6 (25.0-35.0) pg MCHC 29.9 L (31.0-37.0) g/dL RDW 13.4 (11.5-15.5) % Plt Count 240 (150-450) k/uL Neutrophils % 66 % Lymphocytes % 16 % Monocytes % 15 % Eosinophils % 1 % Basophils % 0 % Neutrophils # 5.7 (1.3-7.7) k/uL Lymphocytes # 1.4 (1.0-4.8) k/uL Monocytes # 1.3 H (0-1.0) k/uL Eosinophils # 0.1 (0-0.7) k/uL Basophils # 0.0 (0-0.2) k/uL PT (9.0-12.0) sec INR (<1.2) APTT (22.0-30.0) sec Sodium 140 (137-145) mmol/L Potassium 4.7 (3.5-5.1) mmol/L Chloride 107 (98-107) mmol/L Carbon Dioxide 29 (22-30) mmol/L Anion Gap 4 mmol/L BUN 25 H (9-20) mg/dL Creatinine 1.65 H (0.66-1.25) mg/dL Est GFR (CKD-EPI)AfAm 58 (>60 ml/min/1.73 sqM) Est GFR (CKD-EPI)NonAf 50 (>60 ml/min/1.73 sqM) Glucose 77 (74-99) mg/dL Plasma Lactic Acid Roly 1.1 (0.7-2.0) mmol/L Calcium 9.7 (8.4-10.2) mg/dL Magnesium 2.9 H (1.6-2.3) mg/dL Total Bilirubin 0.6 (0.2-1.3) mg/dL AST 21 (17-59) U/L ALT 29 (21-72) U/L Alkaline Phosphatase 55 (38-126) U/L Troponin I (0.000-0.034) ng/mL NT-Pro-B Natriuret Pep pg/mL Total Protein 6.4 (6.3-8.2) g/dL Albumin 3.8 (3.5-5.0) g/dL Urine Color Urine Appearance (Clear) Urine pH (5.0-8.0) Ur Specific [place] (1.001-1.035) Urine Protein (Negative) Urine Glucose (UA) (Negative) Urine Ketones (Negative) Urine Blood (Negative) Urine Nitrite (Negative) Urine Bilirubin (Negative) Urine Urobilinogen (<2.0) mg/dL Ur Leukocyte Esterase (Negative) Valproic Acid ug/mL Adin mmol/L Influenza Type A RNA (Not Detectd) Influenza Type B (PCR) (Not Detectd) 12/03/18 12/03/18 12/03/18 Range/Units 10:14 10:14 10:14 WBC (3.8-10.6) k/uL RBC (4.30-5.90) m/uL Hgb (13.0-17.5) gm/dL Hct (39.0-53.0) % MCV (80.0-100.0) fL MCH (25.0-35.0) pg MCHC (31.0-37.0) g/dL RDW (11.5-15.5) % Plt Count (150-450) k/uL Neutrophils % % Lymphocytes % % Monocytes % % Eosinophils % % Basophils % % Neutrophils # (1.3-7.7) k/uL Lymphocytes # (1.0-4.8) k/uL Monocytes # (0-1.0) k/uL Eosinophils # (0-0.7) k/uL Basophils # (0-0.2) k/uL PT 10.4 (9.0-12.0) sec INR 1.0 (<1.2) APTT 21.6 L (22.0-30.0) sec Sodium (137-145) mmol/L Potassium (3.5-5.1) mmol/L Chloride (98-107) mmol/L Carbon Dioxide (22-30) mmol/L Anion Gap mmol/L BUN (9-20) mg/dL Creatinine (0.66-1.25) mg/dL Est GFR (CKD-EPI)AfAm (>60 ml/min/1.73 sqM) Est GFR (CKD-EPI)NonAf (>60 ml/min/1.73 sqM) Glucose (74-99) mg/dL Plasma Lactic Acid Roly (0.7-2.0) mmol/L Calcium (8.4-10.2) mg/dL Magnesium (1.6-2.3) mg/dL Total Bilirubin (0.2-1.3) mg/dL AST (17-59) U/L ALT (21-72) U/L Alkaline Phosphatase (38-126) U/L Troponin I <0.012 (0.000-0.034) ng/mL NT-Pro-B Natriuret Pep 67 pg/mL Total Protein (6.3-8.2) g/dL Albumin (3.5-5.0) g/dL Urine Color Urine Appearance (Clear) Urine pH (5.0-8.0) Ur Specific [place] (1.001-1.035) Urine Protein (Negative) Urine Glucose (UA) (Negative) Urine Ketones (Negative) Urine Blood (Negative) Urine Nitrite (Negative) Urine Bilirubin (Negative) Urine Urobilinogen (<2.0) mg/dL Ur Leukocyte Esterase (Negative) Valproic Acid ug/mL Adin mmol/L Influenza Type A RNA (Not Detectd) Influenza Type B (PCR) (Not Detectd) 12/03/18 12/03/18 12/03/18 Range/Units 10:14 10:14 12:27 WBC (3.8-10.6) k/uL RBC (4.30-5.90) m/uL Hgb (13.0-17.5) gm/dL Hct (39.0-53.0) % MCV (80.0-100.0) fL MCH (25.0-35.0) pg MCHC (31.0-37.0) g/dL RDW (11.5-15.5) % Plt Count (150-450) k/uL Neutrophils % % Lymphocytes % % Monocytes % % Eosinophils % % Basophils % % Neutrophils # (1.3-7.7) k/uL Lymphocytes # (1.0-4.8) k/uL Monocytes # (0-1.0) k/uL Eosinophils # (0-0.7) k/uL Basophils # (0-0.2) k/uL PT (9.0-12.0) sec INR (<1.2) APTT (22.0-30.0) sec Sodium (137-145) mmol/L Potassium (3.5-5.1) mmol/L Chloride (98-107) mmol/L Carbon Dioxide (22-30) mmol/L Anion Gap mmol/L BUN (9-20) mg/dL Creatinine (0.66-1.25) mg/dL Est GFR (CKD-EPI)AfAm (>60 ml/min/1.73 sqM) Est GFR (CKD-EPI)NonAf (>60 ml/min/1.73 sqM) Glucose (74-99) mg/dL Plasma Lactic Acid Roly (0.7-2.0) mmol/L Calcium (8.4-10.2) mg/dL Magnesium (1.6-2.3) mg/dL Total Bilirubin (0.2-1.3) mg/dL AST (17-59) U/L ALT (21-72) U/L Alkaline Phosphatase (38-126) U/L Troponin I (0.000-0.034) ng/mL NT-Pro-B Natriuret Pep pg/mL Total Protein (6.3-8.2) g/dL Albumin (3.5-5.0) g/dL Urine Color Light Yellow Urine Appearance Clear (Clear) Urine pH 6.5 (5.0-8.0) Ur Specific [place] 1.010 (1.001-1.035) Urine Protein Negative (Negative) Urine Glucose (UA) Negative (Negative) Urine Ketones Negative (Negative) Urine Blood Negative (Negative) Urine Nitrite Negative (Negative) Urine Bilirubin Negative (Negative) Urine Urobilinogen <2.0 (<2.0) mg/dL Ur Leukocyte Esterase Negative (Negative) Valproic Acid 110.9 ug/mL Adin 3.6 H* mmol/L Influenza Type A RNA Not Detected (Not Detectd) Influenza Type B (PCR) Not Detected (Not Detectd) Mental status examination not found within normal his altered speech memory is intact and has intellectual disability Impression: Adin toxicity: Stop lithium entirely wait for today's and get another lithium level next four days: He has an intellectual disability as well as a diagnoses of bipolar affective disorder and has a guardian his sister and father I have ordered several blood levels for tomorrow to evaluate his lithium and Keppra blood level this patient is a client of community mental health patient of Wilbert Jang and patient be contacted for follow-up care Thank you for the consult Floyd Nance do PhD (1) Adin toxicity Current Visit: Yes Status: Acute Priority: Medium Code(s): T56.891A - TOXIC EFFECT OF OTH METALS, ACCIDENTAL (UNINTENTIONAL), INIT SNOMED Code(s): 671467313 Time with Patient: Less than 30
[2018-12-05 17:01] LABS: Glucose,Whole Blood 129 mg/dL (75-99)
--- NOTE | 2018-12-05 20:42 | PN ---
PROGRESS NOTE DATE OF SERVICE: 12/05/2018 PRESENTING COMPLAINT: Tired. INTERVAL HISTORY: This is a patient with developmental delay and other medical issues. He presented with lithium toxicity, renal failure, rather lethargic. This morning when I saw the patient the patient was more awake, actually was communicating. Family is present at bedside. One of the family did comment that the patient is looking much better compared to when he came in. [place] levels are coming down. Speech Therapy is on the case. REVIEW OF SYSTEMS: Review of systems was attempted for constitutional, cardiovascular, GI, pulmonary; relevant findings as above. CURRENT MEDICATIONS: Current medications are reviewed. They include IV Keppra, IV Zosyn, IV valproic acid. PHYSICAL EXAMINATION: Temperature 97.7, pulse 90, respiration 20, blood pressure 125/77, pulse ox 97% on 2 L. GENERAL APPEARANCE: Far more awake, actually talking better. EYES: Pupils equal. Conjunctivae normal. NECK: JVD not raised. Mass not palpable. RESPIRATORY: Effort increased. LUNGS: Diminished breath sounds. Less wheezing. CARDIOVASCULAR: First and second sounds normal. No edema. ABDOMEN: Soft, non-tender. Liver and spleen not palpable. PSYCHIATRY: Patient is attempting to answer some questions. INVESTIGATIONS: Potassium 4.8. BUN and creatinine are normal. [place] 1.4. ASSESSMENT: 1. Acute lithium toxicity in the setting of renal failure with acute delirium and tremors, improving. 2. Acute viral pneumonitis with a picture of sepsis. Empirically on antibiotic; again improving. 3. Diabetes mellitus, type 2, on oral hypoglycemic. 4. Gastroesophageal reflux disease. 5. Hyperlipidemia. 6. Chronic epilepsy disorder. 7. Hypothyroidism. 8. Chronic developmental delay. 9. Obesity; body mass index 30.1. PLAN: Spoke to Speech Therapy. She had tried this morning, again tried later this afternoon. In the meantime, continue current medication and treatment plan. Physical Therapy is also seeing the patient. Patient is clinically improving. Repeat chest x-ray in the morning. MMODL / IJN: [id number] /
[2018-12-05 20:55] LABS: Glucose,Whole Blood 121 mg/dL (75-99)
[2018-12-05] MEDS ORDERED: LITHIUM CARBONATE 150 MG CAP PO SCH (21:00)
[2018-12-05] MEDS: ATORVASTATIN 10 MG TAB PO SCH (21:01)
[2018-12-06 05:50] LABS: Glucose,Whole Blood 111 mg/dL (75-99)
[2018-12-06] MEDS: INSULIN ASPART (NovoLOG) 100 UNIT/ML VIAL SQ SCH ×4 (05:52→21:43)
[2018-12-06] MEDS: VALPROATE SODIUM 500 MG in SODIUM CHLORIDE 0.9% 100 ML IVPB SCH ×4 (06:00→23:27)
[2018-12-06] MEDS: PIPERACILLIN-TAZOBACTAM 3.375 GM in SODIUM CHLORIDE 0.9% 100 ML IVPB SCH (06:00)
[2018-12-06] MEDS: SODIUM CHLORIDE 0.9% 1,000 ML IV SCH (06:08)
[2018-12-06 06:56] LABS: Basophils % (A) 0 %; Eosinophils # (A) 0.1 k/uL (0-0.7); Eosinophils % (A) 1 %; HGB 9.9 gm/dL (13.0-17.5); Hypochromasia Slight; Lymphocytes % (A) 12 %; MCH 29.2 pg (25.0-35.0); MCV 97.1 fL (80.0-100.0); Mean Platelet Volume 7.9; Monocytes % (A) 12 %; Neutrophils # (A) 6.2 k/uL (1.3-7.7); Neutrophils % (A) 73 %; Platelet Count 214 k/uL (150-450); RBC 3.39 m/uL (4.30-5.90); RDW 13.2 % (11.5-15.5); WBC 8.5 k/uL (3.8-10.6)
[2018-12-06 07:24] LABS: Anion Gap 7 mmol/L; Blood Urea Nitrogen 14 mg/dL (9-20); Calcium 9.1 mg/dL (8.4-10.2); Carbon Dioxide 24 mmol/L (22-30); Chloride 113 mmol/L (98-107); Glucose 111 mg/dL (74-99); Lithium 0.8 mmol/L; Potassium 4.7 mmol/L (3.5-5.1); Sodium 144 mmol/L (137-145)
--- NOTE | 2018-12-06 08:27 | XR ---
EXAMINATION TYPE: XR chest 1V DATE OF EXAM: 12/06/2018 COMPARISON: 12/03/2018 HISTORY: 43 year-old male shortness of breath TECHNIQUE: Single frontal view of the chest is obtained. FINDINGS: Low lung volumes with crowded vascular markings and increasing bibasilar opacities which have a bandl lorenza appearance. Left perihilar and left infrahilar opacity is more confluent. No sizable effusion. IMPRESSION: Limited assessment due to hypoventilatory changes. Bandlike areas of atelectasis in the lower lungs w ith more patchy left perihilar and infrahilar atelectasis versus infiltrate.
[2018-12-06] MEDS: levETIRAcetam IV 500 MG in SODIUM CHLORIDE 0.9% 100 ML IVPB SCH ×2 (09:19→20:46)
[2018-12-06] MEDS: busPIRone HCl 10 MG TAB PO SCH ×2 (09:20→20:45)
--- NOTE | 2018-12-06 10:20 | P.PN ---
Subjective Patient is seen in follow-up for acute kidney injury and lithium toxicity. GFR is back to baseline. G. L. Garcia level down to 0.8. Patient is not a reliable historian. He is maintained on IV fluids with normal saline running at 50 mL an hour. Denies chest pain or shortness of breath. He is nonoliguric. Vital signs are stable. General: The patient appeared well nourished and normally developed. HEENT: Head exam is unremarkable. Neck is without jugular venous distension. LUNGS: Breath sounds decreased. HEART: Rate and Rhythm are regular. First and second heart sounds normal. No murmurs, rubs or gallops. ABDOMEN: Abdominal exam reveals normal bowel sounds. Non-tender and non- distended. No evidence of peritonitis. EXTREMITITES: No clubbing, cyanosis, or edema. Objective - Vital Signs Vital signs: Vital Signs Temp 99.9 F H 12/06/18 07:53 Pulse 122 H 12/06/18 08:00 Resp 20 12/06/18 08:00 BP 133/65 12/06/18 07:53 Pulse Ox 95 12/06/18 07:53 Intake & Output 12/05/18 12/06/18 12/06/18 18:59 06:59 18:59 Intake Total 800 1320 Output Total 825 Balance -25 1320 Weight 103 kg Intake: Intake, IV Titration 800 1200 Amount Piperacillin-Tazobactam 3 100 .375 gm In Sodium Chloride 0.9% 100 ml @ 25 mls/hr IVPB Q8H [facility] Rx#: [id number] Sodium Chloride 0.9% 1, 1200 000 ml @ 100 mls/hr IV . Q10H [facility] Rx#:[id number] Sodium Chloride 0.9% 1, 600 000 ml @ 150 mls/hr IV . Q6H40M [facility] Rx#:[id number] Valproate Sodium 500 mg 100 In Sodium Chloride 0.9% 100 ml @ 100 mls/hr IVPB Q6HR [facility] Rx#:[id number] Oral 0 120 Output: Urine 825 Other: Voiding Method Diaper Diaper Diaper Incontinent Incontinent # Voids 1 1 - Labs CBC & Chem 7: 12/06/18 05:45 12/06/18 05:45 Labs: Abnormal Lab Results - Last 24 Hours (Table) 12/05/18 12/05/18 12/05/18 Range/Units 05:29 11:01 16:42 RBC (4.30-5.90) m/uL Hgb (13.0-17.5) gm/dL Hct (39.0-53.0) % MCHC (31.0-37.0) g/dL Chloride (98-107) mmol/L Glucose (74-99) mg/dL POC Glucose (mg/dL) 124 H 129 H (75-99) mg/dL TSH (0.465-4.680) mIU/L Total T3 56.0 L (60.0-180.0) ng/dL 12/05/18 12/06/18 12/06/18 Range/Units 20:50 05:45 05:45 RBC 3.39 L (4.30-5.90) m/uL Hgb 9.9 L (13.0-17.5) gm/dL Hct 33.0 L (39.0-53.0) % MCHC 30.0 L (31.0-37.0) g/dL Chloride 113 H (98-107) mmol/L Glucose 111 H (74-99) mg/dL POC Glucose (mg/dL) 121 H (75-99) mg/dL TSH <0.015 L (0.465-4.680) mIU/L Total T3 (60.0-180.0) ng/dL 12/06/18 Range/Units 05:49 RBC (4.30-5.90) m/uL Hgb (13.0-17.5) gm/dL Hct (39.0-53.0) % MCHC (31.0-37.0) g/dL Chloride (98-107) mmol/L Glucose (74-99) mg/dL POC Glucose (mg/dL) 111 H (75-99) mg/dL TSH (0.465-4.680) mIU/L Total T3 (60.0-180.0) ng/dL Microbiology - Last 24 Hours (Table) 12/03/18 10:28 Blood Culture - Preliminary Blood No Growth after 48 hours Assessment and Plan Plan: Assessment: 1. Acute kidney injury mostly prerenal improved with IV hydration. GFR back to baseline. Creatinine 0.95 today. UA is benign. 2. G. L. Garcia toxicity. G. L. Garcia level was 3.6 on admission and is down to 0.8 as of this morning. Unclear as to how long he's been on lithium. No diarrhea. No current tremors noted. 3. Benign hypertension. Controlled. 4. Diabetes mellitus. 5. Mild volume overload. Stable. Plan: Maintain normal saline at 50 mL an hour. Continue to monitor renal function and urine output.
[2018-12-06 11:28] LABS: Glucose,Whole Blood 129 mg/dL (75-99)
--- NOTE | 2018-12-06 11:34 | P.HPIM ---
History of Present Illness On-call hospitalist covering for Dr. Becerril This is a pleasant 43 years old male with past medical history of diabetes mellitus, GERD, hyperlipidemia, seizure disorder, hypothyroidism and developmental delay. He presents because increasing weakness associated with cough and congestion with reported fever at home. Patient found to have acutely from [place] on the top of acute kidney injury and his been followed up by camp coordinator and evaluated by psychiatrist. On admission fever is subsiding, today is 99.9, risks of flatus looks stable. Labs reviewed with no leukocytosis and creatinine today is within normal limits. [place] on admission was 3.6, currently is 0.8. Repeat chest x-ray showing more patchy left perihilar infiltrate Patient could not provide much information however he can have the dictation is been and when asking if his chest pain he said no Review of Systems CONSTITUTIONAL: No fever, no malaise, no fatigue. HEENT: No recent visual problems or hearing problems. Denied any sore throat. CARDIOVASCULAR: No orthopnea, PND, no palpitations, no syncope. PULMONARY: No shortness of breath, no cough, no hemoptysis. GASTROINTESTINAL: No diarrhea, no nausea, no vomiting, no abdominal pain. Normoactive bowel sounds. NEUROLOGICAL: No headaches, no weakness, no numbness. HEMATOLOGICAL: Denies any bleeding or petechiae. GENITOURINARY: Denies any burning micturition, frequency, or urgency. MUSCULOSKELETAL/RHEUMATOLOGICAL: Denies any joint pain, swelling, or any muscle pain. ENDOCRINE: Denies any polyuria or polydipsia. Past Medical History Past Medical History: Diabetes Mellitus, GERD/Reflux, Hyperlipidemia, Seizure Disorder, Thyroid Disorder Additional Past Medical History / Comment(s): Developmentally delayed, NIDDM type II, last seizure many years ago, hypothyroid, anemia History of Any Multi-Drug Resistant Organisms: None Reported Past Surgical History: No Surgical Hx Reported Additional Past Surgical History / Comment(s): EGD, colonoscopy Past Anesthesia/Blood Transfusion Reactions: No Reported Reaction Smoking Status: Never smoker - Past Family History Father Family Medical History: No Reported History Additional Family Medical History / Comment(s): Father is healthy and 78yrs old. Mother Additional Family Medical History / Comment(s): Mother is an alcoholic. Medications and Allergies Home Medications Medication Instructions Recorded Confirmed Type Atorvastatin Calcium [Lipitor] 10 mg PO HS 02/08/17 12/03/18 History Divalproex [Depakote] 1,000 mg PO BID 02/08/17 12/03/18 History Levothyroxine Sodium 125 mcg PO DAILY 02/08/17 12/03/18 History Lisinopril [Zestril] 2.5 mg PO DAILY 02/08/17 12/03/18 History [place] Carbonate ER [Lithobid] 450 mg PO BID 02/08/17 12/03/18 History Pioglitazone HCl 45 mg PO DAILY 02/08/17 12/03/18 History busPIRone HCL 10 mg PO BID 02/08/17 12/03/18 History levETIRAcetam [Keppra] 500 mg PO BID 02/08/17 12/03/18 History metFORMIN HCL [Glucophage] 1,000 mg PO BID 02/08/17 12/03/18 History Allergies Allergy/AdvReac Type Severity Reaction Status Date / Time No Known Allergies Allergy Verified 12/03/18 10:09 Physical Exam Vitals: Vital Signs Temp Pulse Pulse Resp BP Pulse Ox 12/06/18 11:11 98.8 F 78 18 129/63 97 12/06/18 08:00 122 H 20 12/06/18 07:53 99.9 F H 86 18 133/65 95 12/06/18 07:45 90 18 12/06/18 04:00 99.3 F 91 18 128/66 94 L 12/06/18 00:00 99.4 F 98 18 134/71 94 L 12/05/18 20:00 99.9 F H 101 H 18 141/69 95 12/05/18 16:08 90 20 12/05/18 16:06 98.5 F 90 20 137/82 98 Intake and Output 12/05/18 12/06/18 12/06/18 22:59 06:59 14:59 Intake Total 0 1320 Balance 0 1320 Intake: Intake, IV Titration 1200 Amount Sodium Chloride 0.9% 1, 1200 000 ml @ 100 mls/hr IV . Q10H [facility] Rx#:[id number] Oral 0 120 Other: Voiding Method Diaper Diaper Diaper Incontinent Incontinent # Voids 1 1 1 Weight 103 kg GENERAL: The patient is alert and oriented x3, not in any acute distress. Well developed, well nourished. HEENT: Pupils are round and equally reacting to light. EOMI. No scleral icterus. No conjunctival pallor. Normocephalic, atraumatic. No pharyngeal erythema. No thyromegaly. CARDIOVASCULAR: S1 and S2 present. No murmurs, rubs, or gallops. -PULMONARY: Chest is clear to auscultation, no wheezing or crackles. Right side harsh breath sounds ABDOMEN: Soft, nontender, nondistended, normoactive bowel sounds. No palpable organomegaly. MUSCULOSKELETAL: No joint swelling or deformity. EXTREMITIES: No cyanosis, clubbing, or pedal edema. NEUROLOGICAL: Gross neurological examination did not reveal any focal deficits. SKIN: No rashes. Results CBC & Chem 7: 12/06/18 05:45 12/06/18 05:45 Labs: Abnormal Lab Results - Last 24 Hours (Table) 12/05/18 12/05/18 12/05/18 Range/Units 05:29 16:42 20:50 RBC (4.30-5.90) m/uL Hgb (13.0-17.5) gm/dL Hct (39.0-53.0) % MCHC (31.0-37.0) g/dL Chloride (98-107) mmol/L Glucose (74-99) mg/dL POC Glucose (mg/dL) 129 H 121 H (75-99) mg/dL TSH (0.465-4.680) mIU/L Total T3 56.0 L (60.0-180.0) ng/dL 12/06/18 12/06/18 12/06/18 Range/Units 05:45 05:45 05:49 RBC 3.39 L (4.30-5.90) m/uL Hgb 9.9 L (13.0-17.5) gm/dL Hct 33.0 L (39.0-53.0) % MCHC 30.0 L (31.0-37.0) g/dL Chloride 113 H (98-107) mmol/L Glucose 111 H (74-99) mg/dL POC Glucose (mg/dL) 111 H (75-99) mg/dL TSH <0.015 L (0.465-4.680) mIU/L Total T3 (60.0-180.0) ng/dL Microbiology - Last 24 Hours (Table) 12/03/18 10:28 Blood Culture - Preliminary Blood No Growth after 48 hours Thrombosis Risk Factor Assmnt - Choose All That Apply Any of the Below Risk Factors Present?: Yes Each Factor Represents 1 point: Age 41-60 years, Obesity (BMI >25) Other Risk Factors: No Other congenital or acquired thrombophilia - If yes, enter type in comment: No Thrombosis Risk Factor Assessment Total Risk Factor Score: 2 Thrombosis Risk Factor Assessment Level: Low Risk Assessment and Plan Assessment: Worsening pneumonia History of developmental delay History of GERD Diabetes mellitus Hyperlipidemia History of seizure Hypothyroidism Plan: This is a pleasant 43 years old male who presents because of pneumonia. His lithium toxicity and acute kidney injury are improved. We will start Zosyn, and change antibiotic to doxycycline and Zithromax. Incentive spirometry. 1654Also, infectious disease consult. Patient has been followed by nephrology and psychiatry services. Labs and medication were reviewed.. Continue same treatment. Continue with symptomatic treatment. Resume home medication. Monitor lytes and vitals. DVT and GI prophylaxis. Further recommendations of the clinical course of the patient DVT prophylaxis: Subcutaneous heparin GI Prophylaxis: Pepcid PT/OT: Pending Patient has a guardian of both sister and father Prognosis is guarded
[2018-12-06] MEDS ORDERED: DOXYCYCLINE 100 MG in SODIUM CHLORIDE 0.9% 100 ML IVPB ONE (12:00)
--- NOTE | 2018-12-06 12:07 | CDI ---
Documentation Clarification Form Date: 12/06/2018 11:30:50 AM From: Denita Ahn RN, CCDS Admit Date: 12/05/2018 2:56:00 PM Patient Name: Guru Holley Visit Number: [id number] Discharge Date: ATTENTION: The Clinical Documentation Specialists (CDI) and [facility] Coding Staff appreciate your assistance in clarifying documentation. Please respond to the clarification below the line at the bottom and electronically sign. The CDI & [facility] Coding staff will review the response and follow-up if needed. Please note: Queries are made part of the Legal Health Record. If you have any questions, please contact the author of this message via ITS. Dr. De Paz Sheet The patients principal diagnosis has not been clearly identified and requires clarification. 43 year-old male presented on 12/03/18 for evaluation of weakness, was found to have an elevated lithium level at 3.6. Patient was placed in observation with a clinical impression of acute viral pneumonitis with a picture of sepsis. Patient has no white count, no obvious infiltrates, per H/P Inpatient order: 12/05/18 at that time lithium level was 1.4. Vital signs 12/05/18 129/75 80 24 99.0 History/Risk factors: Diabetes mellitus, hyperlipidemia, Seizure Disorder, Developmentally delayed Clinical Indicators: 12/04/18 H/P has patient with increased cough, congestion tired. Patient was also having some tremors . Clinical impression: on 12/05/18 He presented with lithium toxicity, renal failure, rather lethargic. This morning the patient was more awake, actually was communicating. 12/05/18 Vital signs: 129/75 80 24 99.0(/ax) 97 % 2/L NC CT Brain; No acute process : 12/05/18: Other Clinical Indicators: Nephrology (Dr. Buck) Follow-up for acute kidney injury and lithium toxicity. GFR is back to baseline. Creatinine 094, UA is benign. Treatment: IV Fluids Zosyn IV Depakote and Keppra IV Levothyroxime IV Aspiration precautions In your professional opinion, can you please clarify which diagnosis, after study, accounted for the reason chiefly responsible for the inpatient admission? (Last Revision: December 2017) Community-acquired pneumonia MTDD
[2018-12-06] MEDS: LEVOTHYROXINE IVP 100 MCG/5 ML VIAL IV SCH (12:37)
[2018-12-06] MEDS: HEPARIN SODIUM,PORCINE 5,000 UNIT/ML 1 ML VIAL SQ SCH ×2 (13:25→20:47)
[2018-12-06 16:38] LABS: Glucose,Whole Blood 119 mg/dL (75-99)
[2018-12-06 20:41] LABS: Glucose,Whole Blood 145 mg/dL (75-99)
[2018-12-06] MEDS: FAMOTIDINE 20 MG TAB PO SCH (20:45)
[2018-12-06] MEDS: ATORVASTATIN 10 MG TAB PO SCH (20:45)
[2018-12-06] MEDS ORDERED: FAMOTIDINE 20 MG/2 ML VIAL IV SCH (21:00)
[2018-12-06] MEDS ORDERED: LEVOFLOXACIN 500 MG TAB PO STA (22:39)
[2018-12-07] MEDS: SODIUM CHLORIDE 0.9% 1,000 ML IV SCH (03:24)
[2018-12-07] MEDS: VALPROATE SODIUM 500 MG in SODIUM CHLORIDE 0.9% 100 ML IVPB SCH ×4 (05:26→23:06)
[2018-12-07 06:09] LABS: Anion Gap 5 mmol/L; Blood Urea Nitrogen 16 mg/dL (9-20); Calcium 9.1 mg/dL (8.4-10.2); Carbon Dioxide 27 mmol/L (22-30); Chloride 114 mmol/L (98-107); Glucose 115 mg/dL (74-99); Potassium 4.5 mmol/L (3.5-5.1); Sodium 146 mmol/L (137-145)
[2018-12-07 06:22] LABS: Glucose,Whole Blood 114 mg/dL (75-99)
[2018-12-07] MEDS: INSULIN ASPART (NovoLOG) 100 UNIT/ML VIAL SQ SCH ×4 (06:48→21:02)
[2018-12-07] MEDS: FAMOTIDINE 20 MG TAB PO SCH ×2 (09:15→21:35)
[2018-12-07] MEDS: busPIRone HCl 10 MG TAB PO SCH ×2 (09:15→21:35)
[2018-12-07] MEDS: levETIRAcetam IV 500 MG in SODIUM CHLORIDE 0.9% 100 ML IVPB SCH ×2 (09:16→21:35)
[2018-12-07] MEDS: HEPARIN SODIUM,PORCINE 5,000 UNIT/ML 1 ML VIAL SQ SCH ×2 (09:16→21:35)
--- NOTE | 2018-12-07 09:32 | CONS ---
CONSULTATION DATE OF SERVICE: 12/06/2018. REASON FOR CONSULTATION: Pneumonia. HISTORY OF PRESENT ILLNESS: The patient is a 43-year-old male who was brought into the ER at [facility] on 12/03/2018 in the morning for evaluation of weakness, has been progressively getting worse for few days prior to presentation to hospital. The patient also have increasing cough and congestion and fever at home. With these symptoms, the patient was evaluated by the ER physician. On arrival to the ER, the patient did have a chest x-ray which shows no acute cardiopulmonary process. Brain CT was negative for any bleed. The patient at presentation did have a normal white count of 8.6. He was noticed to have elevated lactic acid level of 2.7 and has been subsequently admitted to the hospital for was negative. The patient's blood cultures obtained on 12/03 has been negative. The patient was treated with Zosyn and repeat chest x-ray on 12/06, this morning did show bandlike areas of atelectasis in the lower lungs with more patchy left perihilar infrahilar atelectasis. Antibiotic has been adjusted. Rocephin Infectious Disease consulted for further recommendation of antibiotic therapy. Most of the information has been obtained from family with chart. Patient is not a very good historian and no family members are available at the bedside. No clear history of any nausea, vomiting, or any choking on the food or any diarrhea reported by the nursing staff. REVIEW OF SYSTEMS: Could not be reliably obtained. The positive points have been mentioned in HPI. PAST MEDICAL HISTORY: Diabetes mellitus, hyperlipidemia, seizure disorder, hypothyroidism, developmental delay. PAST SURGICAL HISTORY: EGD, colonoscopy. SOCIAL HISTORY: No history of smoking, drinking or drug use. FAMILY HISTORY: Mother with history of alcoholism. ALLERGIES: No known drug allergies. MEDICATION: Include the patient is currently on Lipitor, buspirone, Rocephin 1 g daily, Pepcid, heparin, NovoLog, Lamictal, Synthroid, folic acid and doxycycline. Patient has been on Zosyn from 12/04 to 12/06. PHYSICAL EXAMINATION: Blood pressure is 135/75 with a pulse of 83, temperature 98.7, he is 97% on 2 L nasal cannula. General description is a middle-aged male, lying in bed in no distress. No tachypnea or accessory muscle for respiration use. HEENT: Shows pallor, no scleral icterus. Oral mucosa is extremely dry. No pharyngeal erythema or thrush. NECK: Trachea central, no thyromegaly. LUNGS: Unlabored breathing, decreased breath sounds, no wheeze. HEART: S1, S2. Regular rate and rhythm. ABDOMEN: Soft, no guarding or rigidity. EXTREMITIES: No edema of the feet. SKIN EXAMINATION: No rashes, no masses palpable. NEUROLOGICAL: Patient is awake, alert, oriented times 1. Mood and affect normal. LABS: Hemoglobin is 9.1, white count of 8.5. BUN of 14, creatinine 0.95. Urine has been negative. Blood culture on admission has been negative. DIAGNOSTIC IMPRESSION: Patient admitted to the hospital with weakness, fever, and a congested cough and this patient chest x-ray report negative but repeat showing perihilar infiltrate with concern for possible pneumonia likely of community-acquired, underlying less likely but not entirely excluded in this patient who has been in the hospital with lithium toxicity and apparently has received aggressive IV fluids. PLAN: 1. Will try to obtain sputum for Gram stain culture and sensitivity. 2. Rocephin 1 g daily, continue Levaquin 500 daily. 3. Will follow up on clinical condition and culture to further adjust medication, if needed. Thank you for this consultation. Will follow this patient along with you. MMSEBL / ELEANORN: [id number] /
--- NOTE | 2018-12-07 11:06 | P.PN ---
Subjective Patient is seen in follow-up for acute kidney injury and lithium toxicity. GFR is back to baseline. [place] level down to 0.8. Patient is not a reliable historian. He is maintained on IV fluids with normal saline running at 50 mL an hour. Denies chest pain or shortness of breath. He is nonoliguric. Vital signs are stable. General: The patient appeared well nourished and normally developed. HEENT: Head exam is unremarkable. Neck is without jugular venous distension. LUNGS: Breath sounds decreased. HEART: Rate and Rhythm are regular. First and second heart sounds normal. No murmurs, rubs or gallops. ABDOMEN: Abdominal exam reveals normal bowel sounds. Non-tender and non- distended. No evidence of peritonitis. EXTREMITITES: No clubbing, cyanosis, or edema. Objective - Vital Signs Vital signs: Vital Signs Temp 98.6 F 12/07/18 08:00 Pulse 70 12/07/18 08:00 Resp 18 12/07/18 08:00 BP 122/74 12/07/18 08:00 Pulse Ox 99 12/07/18 08:00 Intake & Output 12/06/18 12/07/18 12/07/18 18:59 06:59 18:59 Intake Total 1542 150 Balance 1542 150 Weight 104 kg Intake: Intake, IV Titration 1200 150 Amount Sodium Chloride 0.9% 1, 1200 100 000 ml @ 50 mls/hr IV . Q20H SARAI Rx#:[id number] cefTRIAXone 1 gm In 50 Sodium Chloride 0.9% 50 ml @ 100 mls/hr IVPB Q12HR SARAI Rx#:[id number] Oral 342 Other: Voiding Method Diaper Diaper Diaper # Voids 2 1 - Labs CBC & Chem 7: 12/06/18 05:45 12/07/18 05:38 Labs: Abnormal Lab Results - Last 24 Hours (Table) 12/06/18 12/06/18 12/06/18 Range/Units 11:25 16:36 20:39 Sodium (137-145) mmol/L Chloride (98-107) mmol/L Glucose (74-99) mg/dL POC Glucose (mg/dL) 129 H 119 H 145 H (75-99) mg/dL 12/07/18 12/07/18 Range/Units 05:38 06:21 Sodium 146 H (137-145) mmol/L Chloride 114 H (98-107) mmol/L Glucose 115 H (74-99) mg/dL POC Glucose (mg/dL) 114 H (75-99) mg/dL Microbiology - Last 24 Hours (Table) 12/03/18 10:28 Blood Culture - Preliminary Blood No Growth after 72 hours Assessment and Plan Plan: Assessment: 1. Acute kidney injury mostly prerenal improved with IV hydration. GFR back to baseline. Creatinine 0.89 today. UA is benign. 2. [place] toxicity. [place] level was 3.6 on admission and is down to 0.8 as of yesterday. Unclear as to how long he's been on lithium. No diarrhea. No current tremors noted. 3. Benign hypertension. Controlled. 4. Diabetes mellitus. 5. Mild volume overload. Stable. 6. Mild hyponatremia secondary to lack of oral water intake. Plan: Hep-Lock IV fluids. Encourage oral intake, including free water.
[2018-12-07 11:36] LABS: Glucose,Whole Blood 128 mg/dL (75-99)
[2018-12-07 16:40] LABS: Glucose,Whole Blood 115 mg/dL (75-99)
--- NOTE | 2018-12-07 19:05 | P.PN ---
Subjective On-call hospitalist covering for Dr. Becerril This is a pleasant 43 years old male with past medical history of diabetes mellitus, GERD, hyperlipidemia, seizure disorder, hypothyroidism and developmental delay. He presents because increasing weakness associated with cough and congestion with reported fever at home. Patient found to have acutely from [place] on the top of acute kidney injury and his been followed up by field cane scaler and evaluated by psychiatrist. On admission fever is subsiding, today is 99.9, risks of flatus looks stable. Labs reviewed with no leukocytosis and creatinine today is within normal limits. [place] on admission was 3.6, currently is 0.8. Repeat chest x-ray showing more patchy left perihilar infiltrate Patient could not provide much information however he can have the dictation is been and when asking if his chest pain he said no 12/07/2018 Patient is more awake today, as per family and staff patient had his basic mental status, and which he mumbles but he understands conversation and interacts appropriately. The patient is generally weak. His dyspnea is improving. He denies chest pain or abdominal pain. No change in bowel or urine habits. No fever in the last 24 hours, before that he has low-grade fever. Her sodium is mildly elevated at 146. His sugar is controlled. He is on Rocephin and Levaquin. Objective - Vital Signs Vital signs: Vital Signs Temp 98 F 12/07/18 15:46 Pulse 64 12/07/18 15:46 Resp 18 12/07/18 15:46 BP 119/77 12/07/18 15:46 Pulse Ox 98 12/07/18 15:46 Intake & Output 12/07/18 12/07/18 12/08/18 06:59 18:59 06:59 Intake Total 390 Balance 390 Weight 104 kg Intake: Intake, IV Titration 150 Amount Sodium Chloride 0.9% 1, 100 000 ml @ 50 mls/hr IV . Q20H SARAI Rx#:[id number] cefTRIAXone 1 gm In 50 Sodium Chloride 0.9% 50 ml @ 100 mls/hr IVPB Q12HR SARAI Rx#:[id number] Oral 240 Other: Voiding Method Diaper Diaper # Voids 1 2 - Exam GENERAL: The patient is alert and oriented x3, not in any acute distress. Well developed, well nourished. HEENT: Pupils are round and equally reacting to light. EOMI. No scleral icterus. No conjunctival pallor. Normocephalic, atraumatic. No pharyngeal erythema. No thyromegaly. CARDIOVASCULAR: S1 and S2 present. No murmurs, rubs, or gallops. PULMONARY: Chest is clear to auscultation, no wheezing or crackles. ABDOMEN: Soft, nontender, nondistended, normoactive bowel sounds. No palpable organomegaly. MUSCULOSKELETAL: No joint swelling or deformity. EXTREMITIES: No cyanosis, clubbing, or pedal edema. NEUROLOGICAL: Gross neurological examination did not reveal any focal deficits. SKIN: No rashes. - Labs CBC & Chem 7: 12/06/18 05:45 12/07/18 05:38 Labs: Abnormal Lab Results - Last 24 Hours (Table) 12/06/18 12/07/18 12/07/18 Range/Units 20:39 05:38 06:21 Sodium 146 H (137-145) mmol/L Chloride 114 H (98-107) mmol/L Glucose 115 H (74-99) mg/dL POC Glucose (mg/dL) 145 H 114 H (75-99) mg/dL 12/07/18 12/07/18 Range/Units 11:34 16:38 Sodium (137-145) mmol/L Chloride (98-107) mmol/L Glucose (74-99) mg/dL POC Glucose (mg/dL) 128 H 115 H (75-99) mg/dL Microbiology - Last 24 Hours (Table) 12/03/18 10:28 Blood Culture - Preliminary Blood No Growth after 96 hours Assessment and Plan Assessment: Worsening pneumonia History of developmental delay History of GERD Diabetes mellitus Hyperlipidemia History of seizure Hypothyroidism Plan: This is a pleasant 43 years old male who presents because of pneumonia. His lithium toxicity and acute kidney injury are improved. We will start Zosyn, and change antibiotic to doxycycline and Zithromax. Incentive spirometry. 1654Also, infectious disease consult. Patient has been followed by nephrology and psychiatry services. Labs and medication were reviewed.. Continue same treatment. Continue with symptomatic treatment. Resume home medication. Monitor lytes and vitals. DVT and GI prophylaxis. Further recommendations of the clinical course of the patient DVT prophylaxis: Subcutaneous heparin GI Prophylaxis: Pepcid PT/OT: Pending Patient has a guardian of both sister and father Prognosis is guarded
[2018-12-07 20:55] LABS: Glucose,Whole Blood 126 mg/dL (75-99)
[2018-12-07] MEDS: ATORVASTATIN 10 MG TAB PO SCH (21:35)
[2018-12-07] MEDS: LEVOFLOXACIN 500 MG TAB PO SCH (23:06)
--- NOTE | 2018-12-08 00:17 | PN ---
PROGRESS NOTE DATE OF SERVICE: 12/07/2018. REASON FOR FOLLOWUP: Pneumonia. INTERVAL HISTORY: The patient is currently afebrile. The patient is breathing comfortably. No respiratory distress has been noticed. No nausea, vomiting, or any diarrhea reported by staff. The patient is to provide history. PHYSICAL EXAMINATION: Blood pressure 137/77 with a pulse of 60, temperature 98.5. He is 99% on room air. GENERAL DESCRIPTION: A middle-aged male lying in bed in no distress. RESPIRATORY SYSTEM: Unlabored breathing, decreased breath sounds at the bases, no wheeze. HEART: S1 and S2. Regular rate and rhythm. ABDOMEN: Soft, no tenderness. LABS: BUN of 16, creatinine 0.89. Blood culture has been negative. No sputum collected. DIAGNOSTIC IMPRESSION AND PLAN: Patient with fever and pneumonia, possible community-acquired. Patient currently on and Levaquin, to continue for now while monitoring his clinical course: Continue supportive care. MMODL / IJN: [id number] /
[2018-12-08] MEDS: VALPROATE SODIUM 500 MG in SODIUM CHLORIDE 0.9% 100 ML IVPB SCH ×4 (05:43→22:43)
[2018-12-08] MEDS: LEVOTHYROXINE 125 MCG TAB PO SCH (05:44)
[2018-12-08 05:45] LABS: Glucose,Whole Blood 128 mg/dL (75-99)
[2018-12-08] MEDS: INSULIN ASPART (NovoLOG) 100 UNIT/ML VIAL SQ SCH ×4 (05:45→20:53)
[2018-12-08 06:43] LABS: Anion Gap 4 mmol/L; Blood Urea Nitrogen 17 mg/dL (9-20); Calcium 9.1 mg/dL (8.4-10.2); Carbon Dioxide 28 mmol/L (22-30); Chloride 113 mmol/L (98-107); Glucose 117 mg/dL (74-99); Potassium 4.7 mmol/L (3.5-5.1); Sodium 145 mmol/L (137-145)
[2018-12-08] MEDS: HEPARIN SODIUM,PORCINE 5,000 UNIT/ML 1 ML VIAL SQ SCH ×2 (08:10→20:01)
[2018-12-08] MEDS: levETIRAcetam IV 500 MG in SODIUM CHLORIDE 0.9% 100 ML IVPB SCH ×2 (08:11→20:02)
[2018-12-08] MEDS: busPIRone HCl 10 MG TAB PO SCH ×2 (08:11→20:01)
[2018-12-08] MEDS: FAMOTIDINE 20 MG TAB PO SCH ×2 (08:11→20:01)
[2018-12-08 11:09] LABS: Glucose,Whole Blood 123 mg/dL (75-99)
[2018-12-08] MEDS ORDERED: AMOXIC-POT CLAV 875-125MG 1 EACH TAB PO STA (13:45)
--- NOTE | 2018-12-08 15:49 | XR ---
EXAMINATION TYPE: XR chest 1V DATE OF EXAM: 12/08/2018 CLINICAL HISTORY: Difficulty breathing progress study. TECHNIQUE: Single AP portable upright view of the chest is obtained. COMPARISON: Chest x-ray from 12/06/2018 FINDINGS: No pneumothorax or large pleural effusion. Subsegmental atelectasis is again seen of the bilateral griselda ng bases. Minimal increased pulmonary vascular congestion. Cardiovascular silhouette remains stable. Osseous structures are unchanged. IMPRESSION: Stable bibasilar atelectasis.
[2018-12-08 16:15] LABS: Glucose,Whole Blood 160 mg/dL (75-99)
[2018-12-08 16:44] LABS: Basophils % (A) 1 %; Eosinophils # (A) 0.2 k/uL (0-0.7); Eosinophils % (A) 2 %; HCT 32.5 % (39.0-53.0); HGB 10.3 gm/dL (13.0-17.5); Lymphocytes # (A) 1.1 k/uL (1.0-4.8); Lymphocytes % (A) 16 %; MCH 29.9 pg (25.0-35.0); MCHC 31.8 g/dL (31.0-37.0); Mean Platelet Volume 8.2; Monocytes # (A) 0.8 k/uL (0-1.0); Monocytes % (A) 12 %; Neutrophils # (A) 4.8 k/uL (1.3-7.7); Neutrophils % (A) 67 %; Platelet Count 292 k/uL (150-450); RBC 3.46 m/uL (4.30-5.90); RDW 13.2 % (11.5-15.5); WBC 7.1 k/uL (3.8-10.6)
[2018-12-08 16:54] LABS: Anion Gap 5 mmol/L; Blood Urea Nitrogen 17 mg/dL (9-20); Calcium 8.9 mg/dL (8.4-10.2); Carbon Dioxide 29 mmol/L (22-30); Chloride 111 mmol/L (98-107); Glucose 141 mg/dL (74-99); Potassium 4.6 mmol/L (3.5-5.1); Sodium 145 mmol/L (137-145)
[2018-12-08] MEDS: ATORVASTATIN 10 MG TAB PO SCH (20:01)
[2018-12-08] MEDS: LEVOFLOXACIN 500 MG TAB PO SCH (20:01)
[2018-12-08 20:44] LABS: Glucose,Whole Blood 129 mg/dL (75-99)
--- NOTE | 2018-12-08 23:19 | P.PN ---
Subjective On-call hospitalist covering for Dr. Becerril This is a pleasant 43 years old male with past medical history of diabetes mellitus, GERD, hyperlipidemia, seizure disorder, hypothyroidism and developmental delay. He presents because increasing weakness associated with cough and congestion with reported fever at home. Patient found to have acutely from [place] on the top of acute kidney injury and his been followed up by teaching supervisor and evaluated by psychiatrist. On admission fever is subsiding, today is 99.9, risks of flatus looks stable. Labs reviewed with no leukocytosis and creatinine today is within normal limits. [place] on admission was 3.6, currently is 0.8. Repeat chest x-ray showing more patchy left perihilar infiltrate Patient could not provide much information however he can have the dictation is been and when asking if his chest pain he said no 12/07/2018 Patient is more awake today, as per family and staff patient had his basic mental status, and which he mumbles but he understands conversation and interacts appropriately. The patient is generally weak. His dyspnea is improving. He denies chest pain or abdominal pain. No change in bowel or urine habits. No fever in the last 24 hours, before that he has low-grade fever. Her sodium is mildly elevated at 146. His sugar is controlled. He is on Rocephin and Levaquin. 12/08/18 pt is still improving , however he is still lethargic , repeat cxr shows im proving , pt is still off lithium for possible toxicity . pt is going to be discharged to [facility] Objective - Vital Signs Vital signs: Vital Signs Temp 98 F 12/08/18 20:00 Pulse 83 12/08/18 20:00 Resp 18 12/08/18 20:00 BP 150/80 12/08/18 20:00 Pulse Ox 96 12/08/18 20:00 Intake & Output 12/08/18 12/08/18 12/09/18 06:59 18:59 06:59 Intake Total 50 222 20 Balance 50 222 20 Weight 104.5 kg Intake: IV 50 0.9 50 Oral 222 20 Other: Voiding Method Diaper Diaper # Voids 1 - Exam GENERAL: The patient is alert and oriented x3, not in any acute distress. Well developed, well nourished. HEENT: Pupils are round and equally reacting to light. EOMI. No scleral icterus. No conjunctival pallor. Normocephalic, atraumatic. No pharyngeal erythema. No thyromegaly. CARDIOVASCULAR: S1 and S2 present. No murmurs, rubs, or gallops. PULMONARY: Chest is clear to auscultation, no wheezing or crackles. ABDOMEN: Soft, nontender, nondistended, normoactive bowel sounds. No palpable organomegaly. MUSCULOSKELETAL: No joint swelling or deformity. EXTREMITIES: No cyanosis, clubbing, or pedal edema. NEUROLOGICAL: Gross neurological examination did not reveal any focal deficits. SKIN: No rashes. - Labs CBC & Chem 7: 12/08/18 16:28 12/08/18 16:28 Labs: Abnormal Lab Results - Last 24 Hours (Table) 12/08/18 12/08/18 12/08/18 Range/Units 05:44 06:11 11:06 RBC (4.30-5.90) m/uL Hgb (13.0-17.5) gm/dL Hct (39.0-53.0) % Chloride 113 H (98-107) mmol/L Glucose 117 H (74-99) mg/dL POC Glucose (mg/dL) 128 H 123 H (75-99) mg/dL 12/08/18 12/08/18 12/08/18 Range/Units 16:10 16:28 16:28 RBC 3.46 L (4.30-5.90) m/uL Hgb 10.3 L (13.0-17.5) gm/dL Hct 32.5 L (39.0-53.0) % Chloride 111 H (98-107) mmol/L Glucose 141 H (74-99) mg/dL POC Glucose (mg/dL) 160 H (75-99) mg/dL 12/08/18 Range/Units 20:43 RBC (4.30-5.90) m/uL Hgb (13.0-17.5) gm/dL Hct (39.0-53.0) % Chloride (98-107) mmol/L Glucose (74-99) mg/dL POC Glucose (mg/dL) 129 H (75-99) mg/dL Microbiology - Last 24 Hours (Table) 12/03/18 10:28 Blood Culture - Preliminary Blood No Growth after 120 hours Assessment and Plan Assessment: Worsening pneumonia History of developmental delay History of GERD Diabetes mellitus Hyperlipidemia History of seizure Hypothyroidism Plan: This is a pleasant 43 years old male who presents because of pneumonia. His lithium toxicity and acute kidney injury are improved. We will start Zosyn, and change antibiotic to doxycycline and Zithromax. Incentive spirometry. 1654Also, infectious disease consult. Patient has been followed by nephrology and psychiatry services. Labs and medication were reviewed.. Continue same treatment. Continue with symptomatic treatment. Resume home medication. Monitor lytes and vitals. DVT and GI prophylaxis. Further recommendations of the clinical course of the patient DVT prophylaxis: Subcutaneous heparin GI Prophylaxis: Pepcid PT/OT: Pending Patient has a guardian of both sister and father Prognosis is guarded
[2018-12-09 05:35] LABS: Glucose,Whole Blood 123 mg/dL (75-99)
[2018-12-09] MEDS: LEVOTHYROXINE 125 MCG TAB PO SCH (05:40)
[2018-12-09] MEDS: VALPROATE SODIUM 500 MG in SODIUM CHLORIDE 0.9% 100 ML IVPB SCH ×3 (05:41→17:11)
[2018-12-09] MEDS: INSULIN ASPART (NovoLOG) 100 UNIT/ML VIAL SQ SCH ×3 (05:43→17:17)
[2018-12-09 07:35] LABS: Anion Gap 5 mmol/L; Blood Urea Nitrogen 18 mg/dL (9-20); Carbon Dioxide 33 mmol/L (22-30); Chloride 109 mmol/L (98-107); Glucose 120 mg/dL (74-99); Potassium 4.7 mmol/L (3.5-5.1); Sodium 147 mmol/L (137-145)
[2018-12-09] MEDS ORDERED: LURASIDONE 40 MG TAB PO SCH (09:00)
[2018-12-09] MEDS: busPIRone HCl 10 MG TAB PO SCH (09:14)
[2018-12-09] MEDS: FAMOTIDINE 20 MG TAB PO SCH (09:14)
[2018-12-09] MEDS: HEPARIN SODIUM,PORCINE 5,000 UNIT/ML 1 ML VIAL SQ SCH (09:14)
[2018-12-09] MEDS: levETIRAcetam IV 500 MG in SODIUM CHLORIDE 0.9% 100 ML IVPB SCH (09:14)
--- NOTE | 2018-12-09 11:47 | P.PN ---
Subjective Progress Note Date: 12/08/18 Principal diagnosis: Bipolar Disorder [place] Toxicity Reason For Consultation: Medication management HPI: Mr. Holley is 43 yo single male admitted here secondary to generalized weakness and confusion. Found out that he has lithium toxicity. Patient was earlier seen by Dr. Carmichael. See details in his notes. Found him mumbling and with slurred speech. Unable to understand . He was in moderate distress. Getting some what agitated. His [place] levels are back to no rmal.Found him still confused and disoriented. Denies any suicidal or homicidal ideation. MSE : AAO x 1. Poor eye contact. Speech slurred. Mood anxious with congruent affect. Denies any suicidal or homicidal ideation. nsight and judgment impaired Delirium secondary to [place] Toxicity Bipolar Disorder Developmental Delay Will continue to hold his lithium. Will start trial of Latuda 40 mg po qdaily with food. Psychiatry will follow. Objective - Vital Signs Vital signs: Vital Signs Temp 98.4 F 12/09/18 10:25 Pulse 72 12/09/18 10:25 Resp 15 12/09/18 10:25 BP 136/76 12/09/18 10:25 Pulse Ox 98 12/09/18 10:25 Intake & Output 12/08/18 12/09/18 12/09/18 18:59 06:59 18:59 Intake Total 222 20 Output Total 1800 Balance 222 -1780 Weight 104.5 kg Intake: Oral 222 20 Output: Urine 1800 Straight 900 Other: Voiding Method Diaper # Voids 1 - Labs CBC & Chem 7: 12/08/18 16:28 12/09/18 06:40 Labs: Abnormal Lab Results - Last 24 Hours (Table) 12/08/18 12/08/18 12/08/18 Range/Units 16:10 16:28 16:28 RBC 3.46 L (4.30-5.90) m/uL Hgb 10.3 L (13.0-17.5) gm/dL Hct 32.5 L (39.0-53.0) % Sodium (137-145) mmol/L Chloride 111 H (98-107) mmol/L Carbon Dioxide (22-30) mmol/L Glucose 141 H (74-99) mg/dL POC Glucose (mg/dL) 160 H (75-99) mg/dL 12/08/18 12/09/18 12/09/18 Range/Units 20:43 05:33 06:40 RBC (4.30-5.90) m/uL Hgb (13.0-17.5) gm/dL Hct (39.0-53.0) % Sodium 147 H (137-145) mmol/L Chloride 109 H (98-107) mmol/L Carbon Dioxide 33 H (22-30) mmol/L Glucose 120 H (74-99) mg/dL POC Glucose (mg/dL) 129 H 123 H (75-99) mg/dL Microbiology - Last 24 Hours (Table) 12/03/18 10:28 Blood Culture - Preliminary Blood No Growth after 120 hours
[2018-12-09 12:10] LABS: Glucose,Whole Blood 118 mg/dL (75-99)
--- NOTE | 2018-12-09 14:53 | P.PN ---
Subjective Progress Note Date: 12/09/18 Seen and examined for the follow-up off acute kidney injury and hyponatremia. Very lethargic and sleepy today not eating drinking. Sodium creeping to 147 today. No nausea vomiting diarrhea. Urinary retention had to be straight cath yesterday. Objective - Vital Signs Vital signs: Vital Signs Temp 98.4 F 12/09/18 10:25 Pulse 72 12/09/18 10:25 Resp 15 12/09/18 10:25 BP 136/76 12/09/18 10:25 Pulse Ox 98 12/09/18 10:25 Intake & Output 12/08/18 12/09/18 12/09/18 18:59 06:59 18:59 Intake Total 222 20 Output Total 1800 Balance 222 -1780 Weight 104.5 kg Intake: Oral 222 20 Output: Urine 1800 Straight 900 Other: Voiding Method Diaper # Voids 1 - Exam No acute distress. Very sleepy S1-S2 heard Abdomen slightly distended No edema - Labs CBC & Chem 7: 12/08/18 16:28 12/09/18 06:40 Labs: Abnormal Lab Results - Last 24 Hours (Table) 12/08/18 12/08/18 12/08/18 Range/Units 16:10 16:28 16:28 RBC 3.46 L (4.30-5.90) m/uL Hgb 10.3 L (13.0-17.5) gm/dL Hct 32.5 L (39.0-53.0) % Sodium (137-145) mmol/L Chloride 111 H (98-107) mmol/L Carbon Dioxide (22-30) mmol/L Glucose 141 H (74-99) mg/dL POC Glucose (mg/dL) 160 H (75-99) mg/dL 12/08/18 12/09/18 12/09/18 Range/Units 20:43 05:33 06:40 RBC (4.30-5.90) m/uL Hgb (13.0-17.5) gm/dL Hct (39.0-53.0) % Sodium 147 H (137-145) mmol/L Chloride 109 H (98-107) mmol/L Carbon Dioxide 33 H (22-30) mmol/L Glucose 120 H (74-99) mg/dL POC Glucose (mg/dL) 129 H 123 H (75-99) mg/dL 12/09/18 Range/Units 12:07 RBC (4.30-5.90) m/uL Hgb (13.0-17.5) gm/dL Hct (39.0-53.0) % Sodium (137-145) mmol/L Chloride (98-107) mmol/L Carbon Dioxide (22-30) mmol/L Glucose (74-99) mg/dL POC Glucose (mg/dL) 118 H (75-99) mg/dL Microbiology - Last 24 Hours (Table) 12/03/18 10:28 Blood Culture - Final Blood No Growth after 144 hours Assessment and Plan Assessment: #1 acute kidney injury secondary to prerenal process improved creatinine back to baseline. #2 lithium toxicity improved currently on valproate. #3 suspect DI secondary to lithium, creeping sodium secondary to decreased oral intake #4 encephalopathy suspect from valproic acid #5 urinary retention needing straight cath Plan: #1 and D5 water at 75 ML's an hour. #2 postvoid residual. If persistent more than 250 ML spoke Richards catheter. #3 monitor ins and outs. #4 check serum osmolality urine osmolality and urine sodium in the morning.
[2018-12-09] MEDS ORDERED: DEXTROSE 5% IN WATER 1,000 ML IV SCH (15:00)
[2018-12-09 15:24] VITALS: BP 143/89; PULSE 83; RESP 16; TEMP 97.8
[2018-12-09 16:24] LABS: Basophils % (A) 0 %; Eosinophils # (A) 0.2 k/uL (0-0.7); Eosinophils % (A) 2 %; HCT 34.6 % (39.0-53.0); HGB 10.8 gm/dL (13.0-17.5); Lymphocytes # (A) 0.9 k/uL (1.0-4.8); Lymphocytes % (A) 9 %; MCH 29.4 pg (25.0-35.0); MCHC 31.2 g/dL (31.0-37.0); Mean Platelet Volume 7.5; Monocytes % (A) 10 %; Neutrophils # (A) 7.6 k/uL (1.3-7.7); Neutrophils % (A) 77 %; Platelet Count 312 k/uL (150-450); RBC 3.68 m/uL (4.30-5.90); RDW 13.3 % (11.5-15.5); WBC 9.8 k/uL (3.8-10.6)
--- NOTE | 2018-12-09 16:40 | P.PN ---
Subjective On-call hospitalist covering for Dr. Becerril This is a pleasant 43 years old male with past medical history of diabetes mellitus, GERD, hyperlipidemia, seizure disorder, hypothyroidism and developmental delay. He presents because increasing weakness associated with cough and congestion with reported fever at home. Patient found to have acutely from [place] on the top of acute kidney injury and his been followed up by report checker and evaluated by psychiatrist. On admission fever is subsiding, today is 99.9, risks of flatus looks stable. Labs reviewed with no leukocytosis and creatinine today is within normal limits. [place] on admission was 3.6, currently is 0.8. Repeat chest x-ray showing more patchy left perihilar infiltrate Patient could not provide much information however he can have the dictation is been and when asking if his chest pain he said no 12/07/2018 Patient is more awake today, as per family and staff patient had his basic mental status, and which he mumbles but he understands conversation and interacts appropriately. The patient is generally weak. His dyspnea is improving. He denies chest pain or abdominal pain. No change in bowel or urine habits. No fever in the last 24 hours, before that he has low-grade fever. Her sodium is mildly elevated at 146. His sugar is controlled. He is on Rocephin and Levaquin. 12/08/18 pt is still improving , however he is still lethargic , repeat cxr shows im proving , pt is still off lithium for possible toxicity . pt is going to be discharged to f 12/09/2018 Patient today is more lethargic and his sodium went up to 147. His bladder scan shows some urinary retention. We'll keep doing the bladder scan. Nephrology consult and follow-up is appreciated. Patient was placed on D5 W. No other trauma. However window CAT scan of the head and check valproic acid. Family at bedside and all their questions are answered Review of system: N/a Objective - Vital Signs Vital signs: Vital Signs Temp 97.8 F 12/09/18 14:54 Pulse 83 12/09/18 14:54 Resp 16 12/09/18 14:54 BP 143/89 12/09/18 14:54 Pulse Ox 99 12/09/18 14:54 Intake & Output 12/08/18 12/09/18 12/09/18 18:59 06:59 18:59 Intake Total 222 20 Output Total 1800 Balance 222 -1780 Weight 104.5 kg Intake: Oral 222 20 Output: Urine 1800 Straight 900 Other: Voiding Method Diaper # Voids 1 - Exam GENERAL: The patient is alert and oriented x3, not in any acute distress. Well developed, well nourished. HEENT: Pupils are round and equally reacting to light. EOMI. No scleral icterus. No conjunctival pallor. Normocephalic, atraumatic. No pharyngeal erythema. No thyromegaly. CARDIOVASCULAR: S1 and S2 present. No murmurs, rubs, or gallops. PULMONARY: Chest is clear to auscultation, no wheezing or crackles. ABDOMEN: Soft, nontender, nondistended, normoactive bowel sounds. No palpable organomegaly. MUSCULOSKELETAL: No joint swelling or deformity. EXTREMITIES: No cyanosis, clubbing, or pedal edema. NEUROLOGICAL: Gross neurological examination did not reveal any focal deficits. SKIN: No rashes. - Labs CBC & Chem 7: 12/09/18 16:11 12/09/18 06:40 Labs: Abnormal Lab Results - Last 24 Hours (Table) 12/08/18 12/08/18 12/08/18 Range/Units 16:28 16:28 20:43 RBC 3.46 L (4.30-5.90) m/uL Hgb 10.3 L (13.0-17.5) gm/dL Hct 32.5 L (39.0-53.0) % Lymphocytes # (1.0-4.8) k/uL Sodium (137-145) mmol/L Chloride 111 H (98-107) mmol/L Carbon Dioxide (22-30) mmol/L Glucose 141 H (74-99) mg/dL POC Glucose (mg/dL) 129 H (75-99) mg/dL 12/09/18 12/09/18 12/09/18 Range/Units 05:33 06:40 12:07 RBC (4.30-5.90) m/uL Hgb (13.0-17.5) gm/dL Hct (39.0-53.0) % Lymphocytes # (1.0-4.8) k/uL Sodium 147 H (137-145) mmol/L Chloride 109 H (98-107) mmol/L Carbon Dioxide 33 H (22-30) mmol/L Glucose 120 H (74-99) mg/dL POC Glucose (mg/dL) 123 H 118 H (75-99) mg/dL 12/09/18 Range/Units 16:11 RBC 3.68 L (4.30-5.90) m/uL Hgb 10.8 L (13.0-17.5) gm/dL Hct 34.6 L (39.0-53.0) % Lymphocytes # 0.9 L (1.0-4.8) k/uL Sodium (137-145) mmol/L Chloride (98-107) mmol/L Carbon Dioxide (22-30) mmol/L Glucose (74-99) mg/dL POC Glucose (mg/dL) (75-99) mg/dL Microbiology - Last 24 Hours (Table) 12/03/18 10:28 Blood Culture - Final Blood No Growth after 144 hours Assessment and Plan Assessment: Worsening pneumonia History of developmental delay History of GERD Diabetes mellitus Hyperlipidemia History of seizure Hypothyroidism Plan: This is a pleasant 43 years old male who presents because of pneumonia. His lithium toxicity and acute kidney injury are improved. We will start Zosyn, and change antibiotic to doxycycline and Zithromax. Incentive spirometry. 1654Also, infectious disease consult. Patient has been followed by nephrology and psychiatry services. Labs and medication were reviewed.. Continue same treatment. Continue with symptomatic treatment. Resume home medication. Monitor lytes and vitals. DVT and GI prophylaxis. Further recommendations of the clinical course of the patient DVT prophylaxis: Subcutaneous heparin GI Prophylaxis: Pepcid PT/OT: Pending Patient has a guardian of both sister and father Prognosis is guarded
[2018-12-09 17:15] LABS: Glucose,Whole Blood 137 mg/dL (75-99)
--- NOTE | 2018-12-09 17:25 | CT ---
EXAMINATION TYPE: CT brain wo con DATE OF EXAM: 12/09/2018 COMPARISON: 12/03/2018 HISTORY: Lethargic, confusion CT DLP: 826.3 mGycm. Automated Exposure Control for Dose Reduction was Utilized. TECHNIQUE: CT scan of the head is performed without contrast. FINDINGS: Ventricles of normal size. There is no mass effect nor midline shift. There is no sign of intracranial hemorrhage. The calvarium is intact. There is debris in the external auditory canal on the right side. IMPRESSION: Negative CT scan of the brain. No change.
[2018-12-10 08:38] LABS: Glucose,Whole Blood 118 mg/dL (75-99)
== END 2018-12-09 19:03 | disposition short-term general hospital (02) | DRG 193 ==
LOC: EC 09:18 → 3SCARD 14:33 → OBSVTOIN 12-05 14:56 → 4MS4W 12-09 10:04
PROVIDERS: ADMIT Hospitalist; ATTEND Hospitalist
DX: J12.9 Viral pneumonia, unspecified (principal); G92 Toxic encephalopathy; N17.9 Acute kidney failure, unspecified; N11.9 Chronic tubulo-interstitial nephritis, unspecified; E87.1 Hypo-osmolality and hyponatremia; E87.70 Fluid overload, unspecified; G40.909 Epilepsy, unspecified, not intractable, without status epilepticus; E78.5 Hyperlipidemia, unspecified; E11.9 Type 2 diabetes mellitus without complications; R62.50 Unspecified lack of expected normal physiological development in childhood; K21.9 Gastro-esophageal reflux disease without esophagitis; E03.9 Hypothyroidism, unspecified; E66.9 Obesity, unspecified; R32 Unspecified urinary incontinence; I10 Essential (primary) hypertension; R41.0 Disorientation, unspecified; F31.9 Bipolar disorder, unspecified; R33.9 Retention of urine, unspecified; T43.595A Adverse effect of other antipsychotics and neuroleptics, initial encounter; T42.6X5A Adverse effect of other antiepileptic and sedative-hypnotic drugs, initial encounter; Z68.30 Body mass index [BMI] 30.0-30.9, adult; Z79.899 Other long term (current) drug therapy; Z79.890 Hormone replacement therapy; Z79.84 Long term (current) use of oral hypoglycemic drugs; Z81.1 Family history of alcohol abuse and dependence
CPT/HCPCS: 36415; 70450; 71045; 71046; 80048; 80051; 80053; 80164; 80165; 80177; 80178; 81003; 82140; 82565; 83520; 83605; 83735; 83880; 84436; 84443; 84480; 84484; 84520; 85025; 85610; 85730; 87040; 87502; 93005; 96360; 96361; 99285

== ENCOUNTER 2019-12-23 16:01 | Emergency (ER) | payer MEDICARE, OTHER ==
[2019-12-23 16:19] VITALS: BP 136/82; PULSE 106; RESP 18; TEMP 98
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
== END 2019-12-23 22:59 | disposition home or self-care (01) ==
LOC: EC 16:01
DX: R46.89 Other symptoms and signs involving appearance and behavior (principal); S61.011A Laceration without foreign body of right thumb without damage to nail, initial encounter; S60.512A Abrasion of left hand, initial encounter; E11.9 Type 2 diabetes mellitus without complications; E78.5 Hyperlipidemia, unspecified; G40.909 Epilepsy, unspecified, not intractable, without status epilepticus; E03.9 Hypothyroidism, unspecified; Z79.890 Hormone replacement therapy; Z79.84 Long term (current) use of oral hypoglycemic drugs; Z79.899 Other long term (current) drug therapy; Y04.0XXA Assault by unarmed brawl or fight, initial encounter
CPT/HCPCS: 82075; 99284

== ENCOUNTER 2020-01-13 09:29 | Observation (INO) | payer MEDICARE, OTHER ==
--- NOTE | 2020-01-13 09:49 | ED ---
Arrhythmia/Palpitations HPI - General Chief Complaint: Arrhythmia/Palpitations Stated Complaint: AFib Time Seen by Provider: 01/13/20 09:30 Source: EMS, RN notes reviewed, old records reviewed Mode of arrival: EMS Limitations: altered mental status - History of Present Illness Initial Comments: This is a 44-year-old male with a history of progressive mental development with the age of a 7-year-old also history of hypothyroidism hyperlipidemia type 2 diabetes major depression who was transferred here from [facility] after being found have a true fibrillation with a rapid ventricular response. He did apparently spontaneously resolved however the patient had some breakthrough episodes. His initial workup including labs were essentially unremarkable. Patient had apparently vomited in the bathroom where he lives at his [facility] home slipped and fell on the floor he has a right hand injury no evidence of any fractures or subluxations found on the original evaluation. Patient himself voices no complaints this time. Initial assessment was done at that hospital the patient was to be admitted for inpatient evaluation however the family has requested the patient be transferred to [facility]. Per paramedics patient did have several episodes of apparent dysrhythmia and route to. No reports of fevers chills nausea vomiting sweats or loss of function to his upper or lower extremities. MD Complaint: atrial fibrillation - Related Data Home Medications Medication Instructions Recorded Confirmed Atorvastatin Calcium [Lipitor] 10 mg PO HS 02/08/17 12/23/19 Divalproex [Depakote] 1,000 mg PO BID 02/08/17 12/23/19 Lisinopril [Zestril] 2.5 mg PO DAILY 02/08/17 12/23/19 busPIRone HCL 20 mg PO BID 02/08/17 12/23/19 levETIRAcetam [Keppra] 500 mg PO BID 02/08/17 12/23/19 Empagliflozin [Jardiance] 10 mg PO DAILY 12/23/19 12/23/19 Levothyroxine Sodium [Levo-T] 112 mcg PO DAILY 12/23/19 12/23/19 [place] Carbonate [[place] 300 mg PO BID 12/23/19 12/23/19 Carbonate ER] OLANZapine 10 mg PO BID 12/23/19 12/23/19 PARoxetine HCL 30 mg PO HS 12/23/19 12/23/19 metFORMIN HCL [metFORMIN HCL ER] 1,000 mg PO BID 12/23/19 12/23/19 Allergies Allergy/AdvReac Type Severity Reaction Status Date / Time No Known Allergies Allergy Verified 01/13/20 09:36 Review of Systems ROS Statement: Those systems with pertinent positive or pertinent negative responses have been documented in the HPI. ROS Other: All systems not noted in ROS Statement are negative. Past Medical History Past Medical History: Diabetes Mellitus, GERD/Reflux, Hyperlipidemia, Seizure Disorder, Thyroid Disorder Additional Past Medical History / Comment(s): Developmentally delayed, NIDDM type II, last seizure many years ago, hypothyroid, anemia History of Any Multi-Drug Resistant Organisms: None Reported Past Surgical History: No Surgical Hx Reported Additional Past Surgical History / Comment(s): EGD, colonoscopy Past Anesthesia/Blood Transfusion Reactions: No Reported Reaction Past Psychological History: No Psychological Hx Reported Smoking Status: Never smoker Past Alcohol Use History: None Reported Past Drug Use History: None Reported - Past Family History Father Family Medical History: No Reported History Additional Family Medical History / Comment(s): Father is healthy and 78yrs old. Mother Additional Family Medical History / Comment(s): Mother is an alcoholic. General Exam - General Exam Comments Initial Comments: This is a well-developed well-nourished awake alert male Limitations: altered mental status General appearance: alert, in no apparent distress Head exam: Present: atraumatic, normocephalic, normal inspection Eye exam: Present: normal appearance, PERRL, EOMI. Absent: scleral icterus, conjunctival injection, periorbital swelling ENT exam: Present: normal exam, mucous membranes moist Neck exam: Present: normal inspection. Absent: tenderness, meningismus, lymphadenopathy Respiratory exam: Present: normal lung sounds bilaterally. Absent: respiratory distress, wheezes, rales, rhonchi, stridor Cardiovascular Exam: Present: regular rate, normal rhythm, normal heart sounds. Absent: systolic murmur, diastolic murmur, rubs, gallop, clicks GI/Abdominal exam: Present: soft, normal bowel sounds. Absent: distended, tenderness, guarding, rebound, rigid Extremities exam: Present: normal inspection, full ROM, normal capillary refill. Absent: tenderness, pedal edema, joint swelling, calf tenderness Back exam: Present: normal inspection Neurological exam: Present: alert, altered, CN II-XII intact Psychiatric exam: Present: normal affect, normal mood Skin exam: Present: warm, dry, intact, normal color. Absent: rash Course Vital Signs 01/13/20 09:36 Temperature 98.2 F Pulse Rate 72 Respiratory 18 Rate Blood Pressure 132/81 O2 Sat by Pulse 100 Oximetry EKG Findings - EKG Results: EKG: interpreted by ROB, sinus rhythm (Sinus rhythm rate 70. Interval 160 QRS duration 98 QT since QTC 42/[address]-T wave changes seen this was compared with the images of the EKG done at [facility]) Medical Decision Making - Medical Decision Making I did review the material sent from the sending facility. The patient will be admitted the case is discussed with Dr. Becerril. Echocardiogram will be ordered. Disposition Clinical Impression: Paroxysmal atrial fibrillation, Fall Disposition: ADMITTED IP TO THIS HOSP Condition: Fair Referrals: Paulino Hermosillo MD [Primary Care Provider] - 1-2 days
[2020-01-13] MEDS ORDERED: NALOXONE 0.4 MG/ML 1 ML VIAL IV PRN (10:01)
[2020-01-13 10:47] LABS: Magnesium 2.3 mg/dL (1.6-2.3)
[2020-01-13 11:42] LABS: Glucose,Whole Blood 116 mg/dL (75-99)
[2020-01-13] MEDS: SODIUM CHLORIDE 0.9% 1,000 ML IV SCH (11:48)
[2020-01-13] MEDS: INSULIN ASPART (NovoLOG) 100 UNIT/ML VIAL SQ SCH ×3 (11:48→20:54)
--- NOTE | 2020-01-13 16:27 | P.HPIM ---
History of Present Illness H&P Date: 01/13/20 Chief Complaint: Abdominal discomfort History of presenting complaint: This is a pleasant 44-year-old patient who follows with Dr. Hermosillo. Patient was transferred here from [facility]. 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 Patient this morning came out of the shower after he had vomited and had been complaining of abdominal discomfort. Subsequently had a fall.. Had a blunt injury to right hand. Patient was moved to [place] [facility]. Patient then was found to be in atrial fibrillation. Then reverted back to sinus rhythm. Denies any fever and chills. Patient reverted back to sinus rhythm spontaneously. No prior history of the same. Upon arrival here today patient says he tenderness or lunch. No trouble. Currently feeling coughing. Patient about the best of historians did describe what could be a possible fluttering sensation in the chest. Review of systems: GEN.: None EYES: None HEENT: None NECK: None RESPIRATORY: None CARDIOVASCULAR: None GASTROINTESTINAL: As above, currently no chest pain GENITOURINARY: None MUSCULOSKELETAL: None LYMPHATICS: None HEMATOLOGICAL: None PSYCHIATRY: Mental retardation NEUROLOGICAL: None Past medical history to include: Tuberous sclerosis, diabetes, hyperlipidemia, mental retardation, seizure disorder, depression Social history: Does not smoke or drink alcohol. Lives at [facility]. Physical examination: VITAL SIGNS: 97.6, 73, 16, 115/68, 99% on room air GENERAL: BMI 29.8, propped up in bed, comfortable. EYES: Pupils equal. Conjunctiva normal. HEENT: External appearance of nose and ears normal, oral cavity grossly normal. NECK: JVD not raised; masses not palpable. HEART: First and second heart sounds are normal; no edema. LUNGS: Respiratory rate normal; clear to auscultation. ABDOMEN: Soft, nontender, liver spleen not palpable, no masses palpable. PSYCH: Patient didn't answer simple questionsl. NEUROLOGICAL: Cranial nerves grossly intact; no facial asymmetry, power and sensation grossly intact. LYMPHATICS: No lymph nodes palpable in the axilla and neck INVESTIGATIONS, reviewed in the clinical context: Lab work from [facility] shows: Lactic acid 3.2 hemoglobin 12.6 platelets 264 sodium 139 bun 17 creatinine 14 0.1 LFTs are normal valproic acid 76 lipase 407 lithium decreased at 0.54 Troponin negative on my UA negative EKG tracing personally reviewed by me from [place] shows atrial fibrillation EKG tracing done here at [facility] personally reviewed by me shows-sinus rhythm TSH-0.9 COVID-19 PCR not detected Assessment: -Possible acute viral gastritis resulting in patient with abdominal discomfort and vomiting which since has improved. Patient is not particular for lunch. No GI problems symptoms -Paroxysmal atrial fibrillation patient spontaneously is come back in sinus rhythm. Do not see any need for medications or anticoagulant use of the present time. -Diabetes mellitus type 2 on oral hypoglycemic -Chronic epilepsy disorder -Depression otherwise specified -Hypothyroid -Hyperlipidemia Plan: We will order 2-D echocardiogram. That has been advanced. Accu-Cheks will be followed. Get a cardiology opinion. Patient had a very transient atrial fibrillation since no need for anticoagulant which the present time. We'll await results of 2-D echo. Care was discussed with the patient. Past Medical History Past Medical History: Diabetes Mellitus, GERD/Reflux, Hyperlipidemia, Seizure Disorder, Thyroid Disorder Additional Past Medical History / Comment(s): Developmentally delayed, NIDDM type II, last seizure many years ago, hypothyroid, anemia History of Any Multi-Drug Resistant Organisms: None Reported Past Surgical History: No Surgical Hx Reported Additional Past Surgical History / Comment(s): EGD, colonoscopy Past Anesthesia/Blood Transfusion Reactions: No Reported Reaction Past Psychological History: No Psychological Hx Reported Smoking Status: Never smoker Past Alcohol Use History: None Reported Past Drug Use History: None Reported - Past Family History Father Family Medical History: No Reported History Additional Family Medical History / Comment(s): Father is healthy and 78yrs old. Mother Additional Family Medical History / Comment(s): Mother is an alcoholic. Sister(s) Family Medical History: Cancer Additional Family Medical History / Comment(s): Breast cancer. Medications and Allergies Home Medications Medication Instructions Recorded Confirmed Type Atorvastatin Calcium [Lipitor] 10 mg PO HS 02/08/17 01/13/20 History Divalproex [Depakote] 1,000 mg PO BID 02/08/17 01/13/20 History Lisinopril [Zestril] 2.5 mg PO DAILY 02/08/17 01/13/20 History busPIRone HCL 20 mg PO BID 02/08/17 01/13/20 History levETIRAcetam [Keppra] 500 mg PO BID 02/08/17 01/13/20 History Empagliflozin [Jardiance] 10 mg PO DAILY 12/23/19 01/13/20 History Levothyroxine Sodium [Levo-T] 112 mcg PO DAILY 12/23/19 01/13/20 History [place] Carbonate [[place] 300 mg PO BID 12/23/19 01/13/20 History Carbonate ER] OLANZapine 10 mg PO BID 12/23/19 01/13/20 History PARoxetine HCL 30 mg PO HS 12/23/19 01/13/20 History metFORMIN HCL [metFORMIN HCL ER] 1,000 mg PO BID 12/23/19 01/13/20 History Allergies Allergy/AdvReac Type Severity Reaction Status Date / Time No Known Allergies Allergy Verified 01/13/20 10:46 Physical Exam Vitals: Vital Signs Temp Pulse Resp BP Pulse Ox 01/13/20 09:36 98.2 F 72 18 132/81 100 Intake and Output 01/12/20 01/13/20 01/13/20 22:59 06:59 14:59 Other: Weight 99.79 kg
[2020-01-13 16:32] LABS: Glucose,Whole Blood 187 mg/dL (75-99)
[2020-01-13] MEDS: LITHIUM CARBONATE 300 MG PO SCH (18:51)
[2020-01-13 20:43] LABS: Glucose,Whole Blood 216 mg/dL (75-99)
[2020-01-13] MEDS: levETIRAcetam 500 MG TAB PO SCH (20:51)
[2020-01-13] MEDS: metFORMIN 500 MG TAB PO SCH (20:51)
[2020-01-13] MEDS: OLANZapine 10 MG TAB PO SCH (20:52)
[2020-01-13] MEDS: busPIRone HCl 10 MG TAB PO SCH (20:52)
[2020-01-13] MEDS: DIVALPROEX 500 MG TABLET.DR PO SCH (20:53)
[2020-01-13] MEDS ORDERED: ATORVASTATIN 10 MG TAB PO SCH (21:00)
[2020-01-13] MEDS ORDERED: PARoxetine 10 MG TAB PO SCH (21:00)
[2020-01-14 04:03] VITALS: RESP 16
[2020-01-14 06:26] LABS: Glucose,Whole Blood 124 mg/dL (75-99)
[2020-01-14] MEDS: INSULIN ASPART (NovoLOG) 100 UNIT/ML VIAL SQ SCH ×2 (06:36→11:55)
[2020-01-14] MEDS: LITHIUM CARBONATE 300 MG PO SCH (06:39)
[2020-01-14 07:49] VITALS: TEMP 97.6
[2020-01-14 08:36] LABS: Basophils % (A) 0 %; Eosinophils # (A) 0.3 k/uL (0-0.7); Eosinophils % (A) 5 %; HCT 37.8 % (39.0-53.0); HGB 11.9 gm/dL (13.0-17.5); Hypochromasia Slight; Lymphocytes # (A) 1.7 k/uL (1.0-4.8); Lymphocytes % (A) 32 %; MCH 29.7 pg (25.0-35.0); MCHC 31.4 g/dL (31.0-37.0); MCV 94.7 fL (80.0-100.0); Mean Platelet Volume 8.9; Monocytes # (A) 0.6 k/uL (0-1.0); Monocytes % (A) 12 %; Neutrophils # (A) 2.6 k/uL (1.3-7.7); Neutrophils % (A) 49 %; Platelet Count 234 k/uL (150-450); RBC 3.99 m/uL (4.30-5.90); RDW 13.3 % (11.5-15.5); WBC 5.3 k/uL (3.8-10.6)
[2020-01-14] MEDS ORDERED: NON FORMULARY DRUG (Empagliflozin [Jardiance] 10 MG) PO SCH (09:00)
[2020-01-14] MEDS ORDERED: LEVOTHYROXINE 112 MCG TAB PO SCH (09:00)
[2020-01-14] MEDS ORDERED: LISINOPRIL 2.5 MG TAB PO SCH (09:00)
[2020-01-14 09:02] LABS: African American GFR (CKD) >90 (>60 ml/min/1.73 sqM); Anion Gap 7 mmol/L; Blood Urea Nitrogen 15 mg/dL (9-20); Calcium 9.1 mg/dL (8.4-10.2); Carbon Dioxide 30 mmol/L (22-30); Chloride 102 mmol/L (98-107); Glucose 199 mg/dL (74-99); Non-African American GFR(CKD) >90 (>60 ml/min/1.73 sqM); Potassium 4.4 mmol/L (3.5-5.1); Sodium 139 mmol/L (137-145)
[2020-01-14] MEDS: busPIRone HCl 10 MG TAB PO SCH (09:18)
[2020-01-14] MEDS: OLANZapine 10 MG TAB PO SCH (09:19)
[2020-01-14] MEDS: metFORMIN 500 MG TAB PO SCH (09:19)
[2020-01-14] MEDS: DIVALPROEX 500 MG TABLET.DR PO SCH (09:19)
[2020-01-14] MEDS: levETIRAcetam 500 MG TAB PO SCH (09:20)
--- NOTE | 2020-01-14 10:35 | P.CRDCN ---
History of Present Illness Consult date: 01/14/20 Requesting physician: El Kaur Consult reason: atrial fibrillation Chief complaint: Vomiting, diarrhea, dizziness History of present illness: This is a 44-year-old mentally challenged gentleman with history of diabetes, hypertension, hyperlipidemia, hypothyroidism, who resides at an adult foster residential. Patient states that he had nausea and vomiting, had some diarrhea, became dizzy, and fell to the floor. He denies any palpitations, chest discomfort, or difficulty in breathing. The EKG that was performed by the EMS did show atrial fibrillation with a rapid ventricular response. His EKG on arrival here showed a normal sinus rhythm with nonspecific ST-T wave changes noted in the inferior leads. Blood pressure this morning 144/60 with heart rate in the 60s, respirations 16 temperature 97.6, 100% on room air. His lactic acid on arrival to [place] 3.3. White blood cell count 9.0, hemoglobin 12.6, platelet count 264. Sodium 139, potassium 4.1, BUN 17, creatinine 1.0. TSH 0.91, magnesium 2.3, Arellano was not detected. Patient was seen and examined today by Dr. Toscano. He is quite eager to be discharged home, not very willing to wear his monitor. The patient's CHADSVASC score is 2. Our recommendation would be to initiate Eliquis, we will also start the patient on Lopressor 25 mg daily. Past Medical History Past Medical History: Diabetes Mellitus, GERD/Reflux, Hyperlipidemia, Seizure Disorder, Thyroid Disorder Additional Past Medical History / Comment(s): Developmentally delayed, NIDDM ty pe II, last seizure many years ago, hypothyroid, anemia History of Any Multi-Drug Resistant Organisms: None Reported Past Surgical History: No Surgical Hx Reported Additional Past Surgical History / Comment(s): EGD, colonoscopy Past Anesthesia/Blood Transfusion Reactions: No Reported Reaction Past Psychological History: No Psychological Hx Reported Smoking Status: Never smoker Past Alcohol Use History: None Reported Past Drug Use History: None Reported - Past Family History Father Family Medical History: No Reported History Additional Family Medical History / Comment(s): Father is healthy and 78yrs old. Mother Family Medical History: Diabetes Mellitus, Myocardial Infarction (CT) Additional Family Medical History / Comment(s): Mother is an alcoholic. Sister(s) Family Medical History: Cancer Additional Family Medical History / Comment(s): Breast cancer. Medications and Allergies Home Medications Medication Instructions Recorded Confirmed Type Atorvastatin Calcium [Lipitor] 10 mg PO HS 02/08/17 01/13/20 History Divalproex [Depakote] 1,000 mg PO BID 02/08/17 01/13/20 History Lisinopril [Zestril] 2.5 mg PO DAILY 02/08/17 01/13/20 History busPIRone HCL 20 mg PO BID 02/08/17 01/13/20 History levETIRAcetam [Keppra] 500 mg PO BID 02/08/17 01/13/20 History Empagliflozin [Jardiance] 10 mg PO DAILY 12/23/19 01/13/20 History Levothyroxine Sodium [Levo-T] 112 mcg PO DAILY 12/23/19 01/13/20 History [place] Carbonate [[place] 300 mg PO BID 12/23/19 01/13/20 History Carbonate ER] OLANZapine 10 mg PO BID 12/23/19 01/13/20 History PARoxetine HCL 30 mg PO HS 12/23/19 01/13/20 History metFORMIN HCL [metFORMIN HCL ER] 1,000 mg PO BID 12/23/19 01/13/20 History Allergies Allergy/AdvReac Type Severity Reaction Status Date / Time No Known Allergies Allergy Verified 01/13/20 10:46 Physical Exam Vitals: Vital Signs Temp Pulse Pulse Resp BP BP Pulse Ox 01/14/20 07:48 97.6 F 65 16 144/67 100 01/14/20 04:00 97.7 F 61 16 115/69 99 01/13/20 23:56 98.0 F 63 17 107/57 97 01/13/20 20:00 97.8 F 67 17 110/72 99 01/13/20 15:18 97.0 F L 81 18 117/66 99 01/13/20 11:54 63 16 01/13/20 11:06 97.6 F 73 16 115/68 99 01/13/20 10:48 63 16 109/69 100 Intake and Output 01/13/20 01/14/20 01/14/20 22:59 06:59 14:59 Intake Total 480 660 Output Total 450 Balance 30 660 Intake: Oral 480 660 Output: Urine 450 Other: Voiding Method Toilet Toilet # Voids 3 1 # Bowel Movements 0 Weight 96 kg PHYSICAL EXAMINATION: GENERAL: 44-year-old gentleman in no acute distress at the time of examination HEENT: Head is atraumatic, normocephalic. Pupils equal, round. Sclera anicteric. Conjunctiva are clear. Mucous membranes of the mouth are moist. Neck is supple. There is no elevated jugular venous pressure. No carotid bruit is heard. HEART EXAMINATION: Heart S1, S2 normal. No murmur or gallop heard. CHEST EXAMINATION: Lungs are clear to auscultation and precussion. No chest wall tenderness is noted on palpation or with deep breathing. ABDOMEN: Soft, nontender. Bowel sounds are heard. No organomegaly noted. EXTREMITIES: 2+ peripheral pulses with no evidence of peripheral edema and no calf tenderness noted. NEUROLOGIC patient is awake, alert and oriented 3 . . Results 01/14/20 08:20 01/14/20 08:20 CBC 01/14/20 Range/Units 08:20 WBC 5.3 (3.8-10.6) k/uL RBC 3.99 L (4.30-5.90) m/uL Hgb 11.9 L (13.0-17.5) gm/dL Hct 37.8 L (39.0-53.0) % Plt Count 234 (150-450) k/uL Comprehensive Metabolic Panel 01/14/20 Range/Units 08:20 Sodium 139 (137-145) mmol/L Potassium 4.4 (3.5-5.1) mmol/L Chloride 102 (98-107) mmol/L Carbon Dioxide 30 (22-30) mmol/L BUN 15 (9-20) mg/dL Creatinine 1.00 (0.66-1.25) mg/dL Glucose 199 H (74-99) mg/dL Calcium 9.1 (8.4-10.2) mg/dL Current Medications Generic Name Dose Route Start Last Admin Trade Name Freq PRN Reason Stop Dose Admin Atorvastatin Calcium 10 mg 01/13/20 21:00 01/13/20 20:53 Lipitor PO 10 mg HS SARAI Administration Buspirone HCl 20 mg 01/13/20 21:00 01/14/20 09:18 Buspar PO 20 mg BID SARAI Administration Divalproex Sodium 1,000 mg 01/13/20 21:00 01/14/20 09:19 Depakote PO 1,000 mg BID SARAI Administration Sodium Chloride 1,000 mls @ 20 mls/hr 01/13/20 10:15 01/13/20 11:48 Saline 0.9% IV Not Given .Q24H SARAI Insulin Aspart 0 unit 01/13/20 12:30 01/14/20 06:36 Novolog SQ Not Given ACHS SARAI Protocol Levetiracetam 500 mg 01/13/20 21:00 01/14/20 09:20 Keppra PO 500 mg BID SARAI Administration Levothyroxine Sodium 112 mcg 01/14/20 09:00 01/14/20 09:19 Synthroid PO 112 mcg DAILY SARAI Administration Lisinopril 2.5 mg 01/14/20 09:00 01/14/20 09:18 Zestril PO 2.5 mg DAILY SARAI Administration Metformin HCl 1,000 mg 01/13/20 21:00 01/14/20 09:19 Glucophage PO 1,000 mg BID SARAI Administration Naloxone HCl 0.2 mg 01/13/20 10:01 Narcan IV Q2M PRN Opioid Reversal Patients Own Med ( 1 each 01/13/20 19:00 01/14/20 06:39 [place] Carbonate Er PO 1 each 300 Mg) Q12H SARAI Administration Non-Formulary Medication 10 mg 01/14/20 09:00 01/14/20 10:08 Empagliflozin [Jardiance] PO Not Given DAILY SARAI Olanzapine 10 mg 01/13/20 21:00 01/14/20 09:19 Zyprexa PO 10 mg BID SARAI Administration Paroxetine HCl 30 mg 01/13/20 21:00 01/13/20 20:47 Paxil PO 30 mg HS SARAI Administration Intake and Output 01/13/20 01/14/20 01/14/20 22:59 06:59 14:59 Intake Total 480 660 Output Total 450 Balance 30 660 Intake: Oral 480 660 Output: Urine 450 Other: Voiding Method Toilet Toilet # Voids 3 1 # Bowel Movements 0 Weight 96 kg 01/14/20 08:20 01/14/20 08:20 EKG Interpretations (text) EKG initially by the EMS to [place] showed atrial fibrillation with rapid ventricular response. EKG this morning shows a normal sinus rhythm with no nspecific ST-T wave changes noted in the inferior leads Assessment and Plan Plan: Assessment and plan #1 symptoms of nausea vomiting and diarrhea, possible gastroenteritis. #2 atrial fibrillation with rapid ventricular response, paroxysmal, patient currently in normal sinus rhythm #3 diabetes #4 hypertension #5 hyperlipidemia #6 hypothyroidism, TSH 0.91 Plan We will obtain an echocardiogram with Doppler study. We will also start the patient on Eliquis for anticoagulation, and initiate Lopressor 25 mg one tablet daily. From our perspective the patient may be able to be discharged home and follow-up with Dr. Toscano in the office. DNP note has been reviewed, I agree with a documented findings and plan of care. Patient was seen and examined.
--- NOTE | 2020-01-14 11:00 | ECHOF ---
Referral Reason:Paroxysmal atrial fibrillation MEASUREMENTS -------- HEIGHT: 182.9 cm WEIGHT: 95.7 kg BP: 115/69 RVIDd: 3.4 cm (< 3.3) IVSd: 1.2 cm (0.6 - 1.1) LVIDd: 5.0 cm (3.9 - 5.3) LVPWd: 1.3 cm (0.6 - 1.1) IVSs: 1.5 cm LVIDs: 3.3 cm LVPWs: 1.9 cm LA Diam: 3.0 cm (2.7 - 3.8) LAESV Index (A-L): 14.48 ml/m Ao Diam: 3.9 cm (2.0 - 3.7) AV Cusp: 2.8 cm (1.5 - 2.6) MV EXCURSION: 22.777 mm (> 18.000) MV EF SLOPE: 154 mm/s (70 - 150) EPSS: 0.4 cm MV E Carson: 0.64 m/s MV DecT: 250 ms MV A Carson: 0.45 m/s MV E/A Ratio: 1.43 FINDINGS -------- Sinus rhythm. This was a technically good study. The left ventricular size is normal. There is mild concentric left ventricular hypertrophy. Overa ll left ventricular systolic function is normal with, an EF between 60 - 65 %. The right ventricle is mildly enlarged. Normal LA size by volume 22+/-6 ml/m2. The right atrium is normal in size. Interatrial and interventricular septum intact. The aortic valve is trileaflet and appears structurally normal. There is trace to mild mitral regurgitation. The tricuspid valve appears structurally normal. There is no pulmonic regurgitation present. The aortic root is dilated measuring 3.9cm. Normal inferior vena cava with normal inspiratory collapse consistent with estimated right atrial pre ssure of 5 mmHg. There is no pericardial effusion. CONCLUSIONS -------- 1. Sinus rhythm. 2. This was a technically good study. 3. The left ventricular size is normal. 4. There is mild concentric left ventricular hypertrophy. 5. Overall left ventricular systolic function is normal with, an EF between 60 - 65 %. 6. The right ventricle is mildly enlarged. 7. Normal LA size by volume 22+/-6 ml/m2. 8. The right atrium is normal in size. 9. Interatrial and interventricular septum intact. 10. The aortic valve is trileaflet and appears structurally normal. 11. There is trace to mild mitral regurgitation. 12. The tricuspid valve appears structurally normal. 13. There is no pulmonic regurgitation present. 14. The aortic root is dilated measuring 3.9cm. 15. Normal inferior vena cava with normal inspiratory collapse consistent with estimated right atrial pressure of 5 mmHg. 16. There is no pericardial effusion. [employer] RN: Shirley Robin RDCS
[2020-01-14] MEDS: SODIUM CHLORIDE 0.9% 1,000 ML IV SCH (11:19)
[2020-01-14 11:46] VITALS: BP 122/72
[2020-01-14 11:49] LABS: Glucose,Whole Blood 127 mg/dL (75-99)
[2020-01-14] MEDS ORDERED: APIXABAN 5 MG TAB PO SCH (14:00)
[2020-01-14] MEDS ORDERED: METOPROLOL TARTRATE 25 MG TAB PO SCH (14:00)
[2020-01-14 14:34] VITALS: PULSE 70
--- NOTE | 2020-01-14 22:06 | P.DS ---
Providers Date of admission: 01/13/20 10:11 Expected date of discharge: 01/14/20 Attending physician: Scott Becerril Consults: 01/13/20 12:24 Consult Physician Routine Consulting Provider: Martin Toscano Consult Reason/Comments: new afib Do you want consulting provider notified?: Yes Primary care physician: [facility] Course: Chief Complaint: Abdominal discomfort History of presenting complaint: This is a pleasant 44-year-old patient who follows with Dr. Hermosillo. Patient was transferred here from [facility]. 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 Patient this morning came out of the shower after he had vomited and had been complaining of abdominal discomfort. Subsequently had a fall.. Had a blunt injury to right hand. Patient was moved to [place] [facility]. Patient then was found to be in atrial fibrillation. Then reverted back to sinus rhythm. Denies any fever and chills. Patient reverted back to sinus rhythm spontaneously. No prior history of the same. Upon arrival here today patient says he tenderness or lunch. No trouble. Currently feeling coughing. Patient about the best of historians did describe what could be a possible fluttering sensation in the chest. Patient felt to be admitted with acute viral gastritis. Symptoms completely resolved on their own. Patient eating well. Also paroxysmal atrial fibrillation short-lived. Does a beta radha was added. Patient's back to his baseline. Patient's guardian of the room. Discussed at length. Patient safe to go home. He had some long-term placement. Did talk to the lead case manager and social contact worker about the same. Also spoke to the legal guardian at length. Present time patient is back to his baseline. No indication for rehab. Discussion and discharge planning more than 35 minutes Consultation: Dr. Kris Toscano from cardiology Physical examination: VITAL SIGNS: 97.6, 65, 16, 144/67, 100% on room air GENERAL: BMI 29.8, propped up in bed, awake, smiling EYES: Pupils equal. Conjunctiva normal. HEENT: External appearance of nose and ears normal, oral cavity grossly normal. NECK: JVD not raised; masses not palpable. HEART: First and second heart sounds are normal; no edema. LUNGS: Respiratory rate normal; clear to auscultation. ABDOMEN: Soft, nontender, liver spleen not palpable, no masses palpable. PSYCH: Answering questions INVESTIGATIONS, reviewed in the clinical context: White count 5.3 hemoglobin 11.9 creatinine 1.0 TSH 2.0 2-D co-EF 60-65% Lab work from [facility] shows: Lactic acid 3.2 hemoglobin 12.6 platelets 264 sodium 139 bun 17 creatinine 14 0.1 LFTs are normal valproic acid 76 lipase 407 lithium decreased at 0.54 Troponin negative on my UA negative EKG tracing personally reviewed by me from [place] shows atrial fibrillation EKG tracing done here at [facility] personally reviewed by me shows-sinus rhythm TSH-0.9 COVID-19 PCR not detected Assessment: - acute viral gastritis resulting in patient with abdominal discomfort and vomiting which corrected -Paroxysmal atrial fibrillation patient spontaneously is come back in sinus rhythm. . -Diabetes mellitus type 2 on oral hypoglycemic -Chronic epilepsy disorder -Depression otherwise specified -Hypothyroid -Hyperlipidemia Disposition: Home with family Patient Condition at Discharge: Stable Plan - Discharge Summary Discharge Rx Participant: No New Discharge Prescriptions: New Apixaban [Eliquis] 5 mg PO BID #60 tab Metoprolol Tartrate [Lopressor] 25 mg PO DAILY #30 tab Continue Lisinopril [Zestril] 2.5 mg PO DAILY busPIRone HCL 20 mg PO BID Atorvastatin Calcium [Lipitor] 10 mg PO HS Divalproex [Depakote] 1,000 mg PO BID levETIRAcetam [Keppra] 500 mg PO BID Empagliflozin [Jardiance] 10 mg PO DAILY PARoxetine HCL 30 mg PO HS OLANZapine 10 mg PO BID metFORMIN HCL [metFORMIN HCL ER] 1,000 mg PO BID [place] Carbonate [[place] Carbonate ER] 300 mg PO BID Levothyroxine Sodium [Levo-T] 112 mcg PO DAILY Discharge Medication List Atorvastatin Calcium [Lipitor] 10 mg PO HS 02/08/17 [History] Divalproex [Depakote] 1,000 mg PO BID 02/08/17 [History] Lisinopril [Zestril] 2.5 mg PO DAILY 02/08/17 [History] busPIRone HCL 20 mg PO BID 02/08/17 [History] levETIRAcetam [Keppra] 500 mg PO BID 02/08/17 [History] Empagliflozin [Jardiance] 10 mg PO DAILY 12/23/19 [History] Levothyroxine Sodium [Levo-T] 112 mcg PO DAILY 12/23/19 [History] [place] Carbonate [[place] Carbonate ER] 300 mg PO BID 12/23/19 [History] OLANZapine 10 mg PO BID 12/23/19 [History] PARoxetine HCL 30 mg PO HS 12/23/19 [History] metFORMIN HCL [metFORMIN HCL ER] 1,000 mg PO BID 12/23/19 [History] Apixaban [Eliquis] 5 mg PO BID #60 tab 01/14/20 [Rx] Metoprolol Tartrate [Lopressor] 25 mg PO DAILY #30 tab 01/14/20 [Rx] Follow up Appointment(s)/Referral(s): [facility] [NON-STAFF] - Martin Toscano MD [STAFF PHYSICIAN] - 01/30/20 8:30 am () Abbey Lamar NPC [REFERRING] - 01/16/20 2:00 pm () Patient Instructions/Handouts: A-fib (Atrial Fibrillation) (DC), Safe Use of Anticoagulants (DC) Discharge Disposition: HOME WITH HOME HEALTH SERVICES
== END 2020-01-14 15:56 | disposition home health service (06) ==
LOC: EEVIPCON 09:29 → EC 09:29 → 3SCARD 10:11
PROVIDERS: ADMIT Hospitalist; ATTEND Hospitalist
DX: I48.0 Paroxysmal atrial fibrillation (principal); A08.4 Viral intestinal infection, unspecified; F79 Unspecified intellectual disabilities; F32.9 Major depressive disorder, single episode, unspecified; E78.5 Hyperlipidemia, unspecified; E03.9 Hypothyroidism, unspecified; G40.909 Epilepsy, unspecified, not intractable, without status epilepticus; E11.9 Type 2 diabetes mellitus without complications; I10 Essential (primary) hypertension; K21.9 Gastro-esophageal reflux disease without esophagitis; Q85.1 Tuberous sclerosis; D64.9 Anemia, unspecified; Z03.818 Encounter for observation for suspected exposure to other biological agents ruled out; S69.91XA Unspecified injury of right wrist, hand and finger(s), initial encounter; W01.0XXA Fall on same level from slipping, tripping and stumbling without subsequent striking against object, initial encounter; Z79.84 Long term (current) use of oral hypoglycemic drugs; Z79.890 Hormone replacement therapy; Z79.899 Other long term (current) drug therapy; Z81.1 Family history of alcohol abuse and dependence; Z80.3 Family history of malignant neoplasm of breast; Z83.3 Family history of diabetes mellitus; Z82.49 Family history of ischemic heart disease and other diseases of the circulatory system
CPT/HCPCS: 99285; 93005; 93306; 80048; 84443 ×2; 83735; 85025; 87635; G0378 ×2

== ENCOUNTER 2020-07-29 10:40 | Emergency (ER) | payer MEDICARE, OTHER ==
--- NOTE | 2020-07-29 11:26 | ED ---
Psych HPI - General Source: EMS Mode of arrival: EMS <Margarita Peña - Last Filed: 07/29/20 11:28> <Dexter Robles - Last Filed: 08/01/20 06:55> <Alexander Mclaughlin - Last Filed: 08/09/20 15:04> <Chandan Mahan - Last Filed: 08/11/20 09:36> - General Chief Complaint: Psychiatric Symptoms Stated Complaint: Mental Health Time Seen by Provider: 07/29/20 10:47 - History of Present Illness Initial Comments: 45-year-old male with history of bipolar, cognitive delays presenting to the ER for failed outpatient psychiatric treatment sent in by physician Wilbert Ricketts. Patient was recently hospitalized the [facility] and was discharged with [facility] follow-up. Patient was discharged back to his residential where he continued to beaggressive with staff. At his follow-up the physician felt patient needed inpatient treatment as he does not feel the hospital he is currently on is working. I spoke with staff who states that patient does have a certification that was supposed to be provided upon arrival. Patient has no complaints. AAOx3. (Margarita Peña) - Related Data Home Medications Medication Instructions Recorded Confirmed Atorvastatin Calcium [Lipitor] 10 mg PO HS 02/08/17 07/29/20 Divalproex [Depakote] 1,000 mg PO BID 02/08/17 07/29/20 busPIRone HCL 20 mg PO BID 02/08/17 07/29/20 levETIRAcetam [Keppra] 500 mg PO BID 02/08/17 07/29/20 lisinopriL [Zestril] 2.5 mg PO DAILY 02/08/17 07/29/20 Empagliflozin [Jardiance] 10 mg PO DAILY 12/23/19 07/29/20 Levothyroxine Sodium [Levo-T] 112 mcg PO DAILY 12/23/19 07/29/20 PARoxetine HCL 30 mg PO HS 12/23/19 07/29/20 LORazepam [Ativan] 1 mg PO QID 07/29/20 07/29/20 OLANZapine [ZyPREXA] 10 mg PO TID 07/29/20 07/29/20 haloperidoL [Haldol] 5 mg PO TID 07/29/20 07/29/20 metFORMIN HCL [metFORMIN HCL ER] 500 mg PO BID 07/29/20 07/29/20 Previous Rx's Medication Instructions Recorded Apixaban [Eliquis] 5 mg PO BID #60 tab 01/14/20 Allergies Allergy/AdvReac Type Severity Reaction Status Date / Time No Known Allergies Allergy Verified 07/29/20 11:13 Review of Systems ROS Other: All systems not noted in ROS Statement are negative. <Margarita Peña - Last Filed: 07/29/20 11:28> ROS Other: All systems not noted in ROS Statement are negative. <Dexter Robles - Last Filed: 08/01/20 06:55> ROS Other: All systems not noted in ROS Statement are negative. <Alexander Mclaughlin - Last Filed: 08/09/20 15:04> ROS Other: All systems not noted in ROS Statement are negative. <Chandan Mahan - Last Filed: 08/11/20 09:36> ROS Statement: Those systems with pertinent positive or pertinent negative responses have been documented in the HPI. Past Medical History Past Medical History: Diabetes Mellitus, GERD/Reflux, Hyperlipidemia, Seizure Disorder, Thyroid Disorder Additional Past Medical History / Comment(s): Developmentally delayed, NIDDM type II, last seizure many years ago, hypothyroid, anemia History of Any Multi-Drug Resistant Organisms: None Reported Past Surgical History: No Surgical Hx Reported Additional Past Surgical History / Comment(s): EGD, colonoscopy Past Anesthesia/Blood Transfusion Reactions: No Reported Reaction Past Psychological History: Bipolar Smoking Status: Never smoker Past Alcohol Use History: None Reported Past Drug Use History: None Reported - Past Family History Father Family Medical History: No Reported History Additional Family Medical History / Comment(s): Father is healthy and 78yrs old. Mother Family Medical History: Diabetes Mellitus, Myocardial Infarction (CO) Additional Family Medical History / Comment(s): Mother is an alcoholic. Sister(s) Family Medical History: Cancer Additional Family Medical History / Comment(s): Breast cancer. <Margarita Peña - Last Filed: 07/29/20 11:28> General Exam Limitations: altered mental status, physical limitation <Margarita Peña - Last Filed: 07/29/20 11:28> - General Exam Comments Initial Comments: General: The patient is awake and alert, in no distress, and does not appear acutely ill. Poop on blanket. Eye: Pupils are equal, round and reactive to light, extra-ocular movements are intact. No nystagmus. There is normal conjunctiva bilaterally. No signs of icterus. Ears, nose, mouth and throat: There are moist mucous membranes and no oral lesions. Neck: The neck is supple, there is no tenderness or JVD. Cardiovascular: There is a regular rate and rhythm. No murmur, rub or gallop is appreciated. Respiratory: Lungs are clear to auscultation, respirations are non-labored, breath sounds are equal. No wheezes, stridor, rales, or rhonchi. Gastrointestinal: Soft, non-distended, non-tender abdomen without masses or organomegaly noted. There is no rebound or guarding present. Musculoskeletal: Normal ROM, no tenderness. Strength 5/5. Sensation intact. Radial pulses equal bilaterally 2+. Neurological: A&O x 3. CN II-XII intact, There are no obvious motor or sensory deficits. Coordination appears grossly intact. Speech is normal. Skin: Skin is warm and dry and no rashes or lesions are noted. Psychiatric: Cooperative (Margarita Peña) Course <Dexter Robles - Last Filed: 08/01/20 06:55> <Alexander Mclaughlin - Last Filed: 08/09/20 15:04> <Chandan Mahan - Last Filed: 08/11/20 09:36> Vital Signs 07/29/20 07/30/20 07/30/20 10:54 00:00 20:00 Temperature 98.7 F 98.8 F Pulse Rate 81 114 H 90 Respiratory 18 18 18 Rate Blood Pressure 104/69 114/71 128/70 O2 Sat by Pulse 97 95 97 Oximetry 07/31/20 07/31/20 07/31/20 06:30 07:10 21:00 Temperature 97.6 F 98.0 F Pulse Rate 95 98 78 Respiratory 18 16 22 Rate Blood Pressure 134/79 124/75 128/87 O2 Sat by Pulse 97 99 99 Oximetry 08/01/20 08/01/20 08/01/20 06:20 06:55 07:43 Temperature 97.9 F Pulse Rate 101 H 98 84 Respiratory 20 20 18 Rate Blood Pressure 126/75 116/88 110/84 O2 Sat by Pulse 100 98 96 Oximetry 08/01/20 08/01/20 08/01/20 08:32 11:42 16:26 Temperature 98 F 97.4 F L 97.3 F L Pulse Rate 82 78 88 Respiratory 15 18 18 Rate Blood Pressure 118/86 102/69 111/74 O2 Sat by Pulse 98 100 95 Oximetry 08/02/20 08/03/20 08/03/20 09:46 07:08 21:20 Temperature 98.8 F 98.7 F Pulse Rate 105 H 84 80 Respiratory 16 19 16 Rate Blood Pressure 102/74 135/72 100/55 O2 Sat by Pulse 99 98 98 Oximetry 08/04/20 08/05/20 08/05/20 11:52 02:31 11:30 Temperature 98.1 F 97.9 F 98.3 F Pulse Rate 97 94 106 H Respiratory 20 18 20 Rate Blood Pressure 118/69 130/84 127/65 O2 Sat by Pulse 97 99 98 Oximetry 08/05/20 08/06/20 08/06/20 21:00 04:34 08:00 Temperature 97.5 F L 99 F Pulse Rate 78 120 H 109 H Respiratory 20 18 18 Rate Blood Pressure 135/70 131/80 146/77 O2 Sat by Pulse 99 96 96 Oximetry 08/06/20 08/06/20 08/06/20 09:00 10:00 11:00 Temperature Pulse Rate Respiratory 18 18 18 Rate Blood Pressure O2 Sat by Pulse 96 Oximetry 08/06/20 08/06/20 08/06/20 12:00 13:00 14:00 Temperature 98.6 F Pulse Rate 98 Respiratory 18 18 18 Rate Blood Pressure 138/82 O2 Sat by Pulse 98 Oximetry 08/06/20 08/06/20 08/06/20 15:00 16:00 17:00 Temperature Pulse Rate Respiratory 18 18 18 Rate Blood Pressure O2 Sat by Pulse Oximetry 08/06/20 08/06/20 08/07/20 18:00 20:40 03:00 Temperature 98.0 F 97.7 F Pulse Rate 92 96 Respiratory 18 16 16 Rate Blood Pressure 113/85 113/71 O2 Sat by Pulse 98 97 Oximetry 08/07/20 08/07/20 08/07/20 06:45 13:52 21:39 Temperature 98.2 F 97.8 F 98.4 F Pulse Rate 88 110 H 98 Respiratory 16 16 18 Rate Blood Pressure 122/81 134/87 138/86 O2 Sat by Pulse 96 98 95 Oximetry 08/08/20 08/08/20 08/09/20 06:15 15:00 01:45 Temperature 98.0 F 97.8 F 97.8 F Pulse Rate 92 86 74 Respiratory 18 18 17 Rate Blood Pressure 128/76 133/59 114/82 O2 Sat by Pulse 96 98 97 Oximetry 08/09/20 08/09/20 08/10/20 09:54 20:00 02:00 Temperature 98.0 F 97.6 F Pulse Rate 98 88 92 Respiratory 18 18 16 Rate Blood Pressure 106/85 115/78 125/82 O2 Sat by Pulse 96 98 98 Oximetry 08/10/20 08/10/20 08/11/20 06:30 16:27 02:15 Temperature 98.0 F Pulse Rate 76 71 79 Respiratory 16 18 Rate Blood Pressure 108/79 109/59 113/81 O2 Sat by Pulse 99 100 100 Oximetry 08/11/20 08:00 Temperature 98.1 F Pulse Rate 104 H Respiratory 18 Rate Blood Pressure 110/67 O2 Sat by Pulse 95 Oximetry - Reevaluation(s) Reevaluation #1: 07/29/20 23:[address] Robles at shift change (Alexander Mclaughlin) Reevaluation #2: 08/01/20 06:24 Patient was about to get morning medication to help him, calm down when he went stiff is a board has seizure-like activity and hit the ground. Currently patient being reevaluated regarding seizure activity He never lost airway pulse ox is remain normal Currently postictal (Dexter Robles) 08/01/20 14:26 Patient resting comfortably in bed. Patient was seen earlier this morning following reported seizure. Patient had awoken and was responsive. CT results was discussed with radiologist. He states the density was superficial to the globe of the eye and not intercranial. This area was reevaluated without obvious abnormality. He also stated that questionable fracture of osteophyte was not a significant fracture requiring treatment. Case was discussed with Dr. Becerril who did not feel patient needed medical admission. Patient will be held still pending psychiatric disposition. (Chandan Mahan) Reevaluation #3: 08/09/20 15:04 The patient rested comfortably in the emergency department throughout the day and is pending disposition at this time (Alexander Mclaughlin) Reevaluation #4: 08/11/20 09:32 Patient reevaluated. Patient seen by social media intern. Patient had multiple att empts to try for placement with [facility] or residential however none were accept him. Patient will be transferred to nursing facility. (Chandan Mahan) Medical Decision Making - Lab Data Result diagrams: 08/01/20 06:29 08/01/20 06:29 - EKG Data -: EKG Interpreted by Me (EKG shows sinus 79 IL 132 QRS 100 QTc 459) <Dexter Robles - Last Filed: 08/01/20 06:55> - Lab Data Result diagrams: 08/01/20 06:29 08/01/20 06:29 <Alexander Mclaughlin - Last Filed: 08/09/20 15:04> - Lab Data Result diagrams: 08/01/20 06:29 08/01/20 06:29 <Chandan Mahan - Last Filed: 08/11/20 09:36> - Lab Data Lab Results 07/29/20 08/01/20 08/01/20 Range/Units 12:06 05:45 05:45 WBC (3.8-10.6) k/uL RBC (4.30-5.90) m/uL Hgb (13.0-17.5) gm/dL Hct (39.0-53.0) % MCV (80.0-100.0) fL MCH (25.0-35.0) pg MCHC (31.0-37.0) g/dL RDW (11.5-15.5) % Plt Count (150-450) k/uL MPV Neutrophils % (Manual) % Lymphocytes % (Manual) % Monocytes % (Manual) % Eosinophils % (Manual) % Neutrophils # (Manual) (1.3-7.7) k/uL Lymphocytes # (Manual) (1.0-4.8) k/uL Monocytes # (Manual) (0-1.0) k/uL Eosinophils # (Manual) (0-0.7) k/uL Nucleated RBCs (0-0) /100 WBC Manual Slide Review Sodium (137-145) mmol/L Potassium (3.5-5.1) mmol/L Chloride (98-107) mmol/L Carbon Dioxide (22-30) mmol/L Anion Gap mmol/L BUN (9-20) mg/dL Creatinine (0.66-1.25) mg/dL Est GFR (CKD-EPI)AfAm (>60 ml/min/1.73 sqM) Est GFR (CKD-EPI)NonAf (>60 ml/min/1.73 sqM) Glucose (74-99) mg/dL POC Glucose (mg/dL) (75-99) mg/dL POC Glu Cigar Head Holer ID Calcium (8.4-10.2) mg/dL Total Bilirubin (0.2-1.3) mg/dL AST (17-59) U/L ALT (4-49) U/L Alkaline Phosphatase (38-126) U/L Total Protein (6.3-8.2) g/dL Albumin (3.5-5.0) g/dL Urine Color Light Yellow Urine Appearance Clear (Clear) Urine pH 6.0 (5.0-8.0) Ur Specific [place] 1.007 (1.001-1.035) Urine Protein Negative (Negative) Urine Glucose (UA) 4+ H (Negative) Urine Ketones Negative (Negative) Urine Blood Negative (Negative) Urine Nitrite Negative (Negative) Urine Bilirubin Negative (Negative) Urine Urobilinogen <2.0 (<2.0) mg/dL Ur Leukocyte Esterase Negative (Negative) Salicylates mg/dL Urine Opiates Screen Not Detected (NotDetected) Ur Oxycodone Screen Not Detected (NotDetected) Urine Methadone Screen Not Detected (NotDetected) Ur Propoxyphene Screen Not Detected (NotDetected) Acetaminophen ug/mL Ur Barbiturates Screen Not Detected (NotDetected) Phenytoin ug/mL Valproic Acid ug/mL Carbamazepine ug/mL U Tricyclic Antidepress Not Detected (NotDetected) Ur Phencyclidine Scrn Not Detected (NotDetected) Ur Amphetamines Screen Not Detected (NotDetected) U Methamphetamines Scrn Not Detected (NotDetected) U Benzodiazepines Scrn Detected H (NotDetected) Urine Cocaine Screen Not Detected (NotDetected) U Marijuana (THC) Screen Not Detected (NotDetected) Coronavirus (PCR) Not Detected (Not Detectd) 08/01/20 08/01/20 08/05/20 Range/Units 06:29 06:29 03:40 WBC 11.3 H (3.8-10.6) k/uL RBC 4.81 (4.30-5.90) m/uL Hgb 14.2 (13.0-17.5) gm/dL Hct 45.9 (39.0-53.0) % MCV 95.4 (80.0-100.0) fL MCH 29.6 (25.0-35.0) pg MCHC 31.0 (31.0-37.0) g/dL RDW 14.7 (11.5-15.5) % Plt Count 324 (150-450) k/uL MPV 7.9 Neutrophils % (Manual) 33 % Lymphocytes % (Manual) 50 % Monocytes % (Manual) 13 % Eosinophils % (Manual) 4 % Neutrophils # (Manual) 3.73 (1.3-7.7) k/uL Lymphocytes # (Manual) 5.65 H (1.0-4.8) k/uL Monocytes # (Manual) 1.47 H (0-1.0) k/uL Eosinophils # (Manual) 0.45 (0-0.7) k/uL Nucleated RBCs 0 (0-0) /100 WBC Manual Slide Review Performed Sodium 139 (137-145) mmol/L Potassium 4.0 (3.5-5.1) mmol/L Chloride 101 (98-107) mmol/L Carbon Dioxide 18 L (22-30) mmol/L Anion Gap 20 mmol/L BUN 31 H (9-20) mg/dL Creatinine 1.01 (0.66-1.25) mg/dL Est GFR (CKD-EPI)AfAm >90 (>60 ml/min/1.73 sqM) Est GFR (CKD-EPI)NonAf 90 (>60 ml/min/1.73 sqM) Glucose 202 H (74-99) mg/dL POC Glucose (mg/dL) 267 H (75-99) mg/dL POC Glu Cigar Head Holer ID Azra Moralez Calcium 9.3 (8.4-10.2) mg/dL Total Bilirubin 0.4 (0.2-1.3) mg/dL AST 27 (17-59) U/L ALT 22 (4-49) U/L Alkaline Phosphatase 51 (38-126) U/L Total Protein 7.6 (6.3-8.2) g/dL Albumin 4.5 (3.5-5.0) g/dL Urine Color Urine Appearance (Clear) Urine pH (5.0-8.0) Ur Specific [place] (1.001-1.035) Urine Protein (Negative) Urine Glucose (UA) (Negative) Urine Ketones (Negative) Urine Blood (Negative) Urine Nitrite (Negative) Urine Bilirubin (Negative) Urine Urobilinogen (<2.0) mg/dL Ur Leukocyte Esterase (Negative) Salicylates <1.0 mg/dL Urine Opiates Screen (NotDetected) Ur Oxycodone Screen (NotDetected) Urine Methadone Screen (NotDetected) Ur Propoxyphene Screen (NotDetected) Acetaminophen <10.0 ug/mL Ur Barbiturates Screen (NotDetected) Phenytoin <3.0 ug/mL Valproic Acid 50.9 ug/mL Carbamazepine <3.0 ug/mL U Tricyclic Antidepress (NotDetected) Ur Phencyclidine Scrn (NotDetected) Ur Amphetamines Screen (NotDetected) U Methamphetamines Scrn (NotDetected) U Benzodiazepines Scrn (NotDetected) Urine Cocaine Screen (NotDetected) U Marijuana (THC) Screen (NotDetected) Coronavirus (PCR) (Not Detectd) 08/07/20 Range/Units 17:03 WBC (3.8-10.6) k/uL RBC (4.30-5.90) m/uL Hgb (13.0-17.5) gm/dL Hct (39.0-53.0) % MCV (80.0-100.0) fL MCH (25.0-35.0) pg MCHC (31.0-37.0) g/dL RDW (11.5-15.5) % Plt Count (150-450) k/uL MPV Neutrophils % (Manual) % Lymphocytes % (Manual) % Monocytes % (Manual) % Eosinophils % (Manual) % Neutrophils # (Manual) (1.3-7.7) k/uL Lymphocytes # (Manual) (1.0-4.8) k/uL Monocytes # (Manual) (0-1.0) k/uL Eosinophils # (Manual) (0-0.7) k/uL Nucleated RBCs (0-0) /100 WBC Manual Slide Review Sodium (137-145) mmol/L Potassium (3.5-5.1) mmol/L Chloride (98-107) mmol/L Carbon Dioxide (22-30) mmol/L Anion Gap mmol/L BUN (9-20) mg/dL Creatinine (0.66-1.25) mg/dL Est GFR (CKD-EPI)AfAm (>60 ml/min/1.73 sqM) Est GFR (CKD-EPI)NonAf (>60 ml/min/1.73 sqM) Glucose (74-99) mg/dL POC Glucose (mg/dL) 286 H (75-99) mg/dL POC Glu Cigar Head Holer ID Letty Mahan Calcium (8.4-10.2) mg/dL Total Bilirubin (0.2-1.3) mg/dL AST (17-59) U/L ALT (4-49) U/L Alkaline Phosphatase (38-126) U/L Total Protein (6.3-8.2) g/dL Albumin (3.5-5.0) g/dL Urine Color Urine Appearance (Clear) Urine pH (5.0-8.0) Ur Specific [place] (1.001-1.035) Urine Protein (Negative) Urine Glucose (UA) (Negative) Urine Ketones (Negative) Urine Blood (Negative) Urine Nitrite (Negative) Urine Bilirubin (Negative) Urine Urobilinogen (<2.0) mg/dL Ur Leukocyte Esterase (Negative) Salicylates mg/dL Urine Opiates Screen (NotDetected) Ur Oxycodone Screen (NotDetected) Urine Methadone Screen (NotDetected) Ur Propoxyphene Screen (NotDetected) Acetaminophen ug/mL Ur Barbiturates Screen (NotDetected) Phenytoin ug/mL Valproic Acid ug/mL Carbamazepine ug/mL U Tricyclic Antidepress (NotDetected) Ur Phencyclidine Scrn (NotDetected) Ur Amphetamines Screen (NotDetected) U Methamphetamines Scrn (NotDetected) U Benzodiazepines Scrn (NotDetected) Urine Cocaine Screen (NotDetected) U Marijuana (THC) Screen (NotDetected) Coronavirus (PCR) (Not Detectd) Disposition <MarianaMargarita L - Last Filed: 07/29/20 11:28> <Dexter Robles - Last Filed: 08/01/20 06:55> <Alexander Mclaughlin - Last Filed: 08/09/20 15:04> Is patient prescribed a controlled substance at d/c from ED?: No <Chandan Mahan - Last Filed: 08/11/20 09:36> Clinical Impression: Behavioral disorder, Seizure disorder Disposition: HOME SELF-CARE Condition: Stable Instructions (If sedation given, give patient instructions): Conduct Disorder (ED), Recurrent Seizures in Adults (ED) Additional Instructions: Please follow-up with primary care physician in the next day or 2 for recheck. Discharged to nursing facility. Return for worsening or change in symptoms or other concerns. Referrals: Paulino Hermosillo MD [Primary Care Provider] - 1-2 days
[2020-07-29 12:23] LABS: Appearance,Urine Clear (Clear); Bilirubin,Urine Negative (Negative); Blood,Urine Negative (Negative); Color,Urine Light Yellow; Glucose,Urine (UA) 4+ (Negative); Ketones,Urine Negative (Negative); Leukocyte Esterase,Urine Negative (Negative); Nitrite,Urine Negative (Negative); Protein,Urine Negative (Negative); Specific Gravity,Urine 1.007 (1.001-1.035); Urobilinogen,Urine <2.0 mg/dL (<2.0)
[2020-07-29] MEDS ORDERED: LORazepam 1 MG TAB PO STA (23:53)
[2020-07-30] MEDS ORDERED: LORazepam 1 MG TAB PO STA (02:44)
[2020-07-30] MEDS: LORazepam 1 MG TAB PO PRN (06:19)
[2020-07-30] MEDS: LORazepam 1 MG TAB PO SCH ×4 (10:32→20:50)
[2020-07-30] MEDS: DIVALPROEX 500 MG TABLET.DR PO SCH ×2 (10:32→21:14)
[2020-07-30] MEDS: busPIRone HCl 10 MG TAB PO SCH ×2 (10:35→21:14)
[2020-07-30] MEDS: OLANZapine 10 MG TAB PO SCH ×2 (10:35→21:14)
[2020-07-30] MEDS: PARoxetine 10 MG TAB PO SCH (21:14)
[2020-07-31] MEDS ORDERED: diphenhydrAMINE 50 MG CAP PO STA (06:36)
[2020-07-31] MEDS: LORazepam 1 MG TAB PO PRN ×2 (06:58→13:59)
[2020-07-31] MEDS: DIVALPROEX 500 MG TABLET.DR PO SCH ×2 (10:54→21:26)
[2020-07-31] MEDS: LORazepam 1 MG TAB PO SCH ×3 (10:54→19:20)
[2020-07-31] MEDS: busPIRone HCl 10 MG TAB PO SCH ×3 (11:26→21:26)
[2020-07-31] MEDS: OLANZapine 10 MG TAB PO SCH ×2 (11:29→21:26)
[2020-07-31] MEDS ORDERED: ZIPRASIDONE 20 MG VIAL IM STA (20:25)
[2020-07-31] MEDS ORDERED: LORazepam 2 MG/ML INJ IM STA (20:25)
[2020-07-31] MEDS: PARoxetine 10 MG TAB PO SCH (21:33)
[2020-08-01] MEDS: LORazepam 1 MG TAB PO SCH ×5 (05:42→21:19)
[2020-08-01 06:05] LABS: Amphetamine Screen,Urine Not Detected (NotDetected); Barbiturate Screen,Urine Not Detected (NotDetected); Benzodiazepines Screen,Urine Detected (NotDetected); Cocaine Screen,Urine Not Detected (NotDetected); Methadone Screen, Urine Not Detected (NotDetected); Opiate Screen,Urine Not Detected (NotDetected); Oxycodone Screen, Urine Not Detected (NotDetected); Phencyclidine Screen,Urine Not Detected (NotDetected); Tricyclic Antidepressant,Urine Not Detected (NotDetected); Urn Cannabinoid Scrn Not Detected (NotDetected)
[2020-08-01] MEDS ORDERED: diphenhydrAMINE 50 MG CAP PO STA (06:10)
[2020-08-01] MEDS ORDERED: LORazepam 2 MG/ML INJ IV STA (06:19)
[2020-08-01] MEDS ORDERED: SODIUM CHLORIDE 0.9% 1,000 ML IV STA ×2 (06:19)
[2020-08-01] MEDS ORDERED: levETIRAcetam IV 1,000 MG in SALINE 1 100ML.BAG IVPB STA (06:19)
[2020-08-01 06:45] LABS: HCT 45.9 % (39.0-53.0); HGB 14.2 gm/dL (13.0-17.5); MCH 29.6 pg (25.0-35.0); MCV 95.4 fL (80.0-100.0); Mean Platelet Volume 7.9; Platelet Count 324 k/uL (150-450); RBC 4.81 m/uL (4.30-5.90); RDW 14.7 % (11.5-15.5); WBC 11.3 k/uL (3.8-10.6)
[2020-08-01 06:51] LABS: ALT 22 U/L (4-49); AST 27 U/L (17-59); Acetaminophen <10.0 ug/mL; African American GFR (CKD) >90 (>60 ml/min/1.73 sqM); Albumin 4.5 g/dL (3.5-5.0); Alkaline Phosphatase 51 U/L (38-126); Anion Gap 20 mmol/L; Blood Urea Nitrogen 31 mg/dL (9-20); Calcium 9.3 mg/dL (8.4-10.2); Carbamazepine (Tegretol) <3.0 ug/mL; Carbon Dioxide 18 mmol/L (22-30); Chloride 101 mmol/L (98-107); Glucose 202 mg/dL (74-99); Non-African American GFR(CKD) 90 (>60 ml/min/1.73 sqM); Phenytoin (Dilantin) <3.0 ug/mL; Salicylate <1.0 mg/dL; Sodium 139 mmol/L (137-145); Total Bilirubin 0.4 mg/dL (0.2-1.3); Total Protein 7.6 g/dL (6.3-8.2)
[2020-08-01 06:54] LABS: Valproic Acid (Depakene) 50.9 ug/mL
[2020-08-01 07:15] LABS: Eosinophils # (M) 0.45 k/uL (0-0.7); Lymphocytes # (M) 5.65 k/uL (1.0-4.8); Monocytes # (M) 1.47 k/uL (0-1.0); Neutrophils # (M) 3.73 k/uL (1.3-7.7); Neutrophils % (M) 33 %; Nucleated Red Blood Cells 0 /100 WBC (0-0); Total Cells Counted 100
--- NOTE | 2020-08-01 07:23 | CT ---
EXAM: CT Head Without Intravenous Contrast CLINICAL HISTORY: Fall TECHNIQUE: Axial computed tomography images of the head/brain without intravenous contrast. CTDI is 45.2 mGy and DLP is 1108 mGy-cm. This CT exam was performed using one or more of the following dose reduction techniques: automated exposure control, adjustment of the mA and/or kV according to patient size, and/or use of iterative reconstruction technique. COMPARISON: No relevant prior studies available. FINDINGS: No acute intracranial hemorrhage. No midline shift or mass effect. The territorial gallardo-white matter differentiation is maintained throughout. The ventricles and sulci are commensurate with age. Indeterminate soft tissue density along the medial aspect of the left lobe measuring 8 mm x 6 cm. Correlate with ophthalmology exam. Note, this may be within the soft tissues. The calvarium is intact. The visualized paranasal sinuses and mastoid air cells are grossly clear. IMPRESSION: No acute intracranial hemorrhage, midline shift, or mass effect. Indeterminate soft tissue density along the medial aspect of the left lobe measuring 8 mm x 6 cm. Correlate with ophthalmology exam. Note, this may be within the soft tissues. EXAM: CT Cervical Spine Without Intravenous Contrast CLINICAL HISTORY: Fall TECHNIQUE: Axial computed tomography images of the cervical spine without intravenous contrast. CTDI is 17.05 mGy and DLP is 538 mGy-cm. This CT exam was performed using one or more of the following dose reduction techniques: automated exposure control, adjustment of the mA and/or kV according to patient size, and/or use of iterative reconstruction technique. COMPARISON: No relevant prior studies available. FINDINGS: The vertebral body heights are maintained. There is no spondylolisthesis. The craniocervical junction is intact. The atlanto-dens interval is maintained. The dens is intact. Multilevel degenerative end plate changes, intervertebral disc space narrowing, and facet/uncovertebral joint arthropathy. These findings preferentially involve C4-5 and C5-6. No high-grade spinal canal stenosis. There is an anterior bridging osteophyte at C5-6 on the right with a linear lucency, suspicions for a fracture of the bridging osteophyte (series 303 image 55, series 302 image 33). There is no prevertebral soft tissue swelling. The unenhanced neck soft tissues are grossly unremarkable. The visualized lung apices are grossly clear. IMPRESSION: No definite cervical spine fracture. However, there is an anterior bridging osteophyte at C5-6 on the right with a linear lucency, suspicions for a fracture of the bridging osteophyte (series 303 image 55, series 302 image 33). Multilevel degenerative changes. <MYCVCSECTION> Communications: 08/01/20 08:19 Call From [facility] Dr. Mahan on 08/01 08:13 (-05:00)
[2020-08-01] MEDS: busPIRone HCl 10 MG TAB PO SCH ×2 (14:21→21:19)
[2020-08-01] MEDS: OLANZapine 10 MG TAB PO SCH ×2 (14:22→21:19)
[2020-08-01] MEDS: DIVALPROEX 500 MG TABLET.DR PO SCH ×2 (14:22→21:19)
[2020-08-01] MEDS: PARoxetine 10 MG TAB PO SCH (21:20)
[2020-08-02] MEDS: OLANZapine 10 MG TAB PO SCH ×2 (09:48→22:16)
[2020-08-02] MEDS: DIVALPROEX 500 MG TABLET.DR PO SCH ×2 (09:48→22:15)
[2020-08-02] MEDS: LORazepam 1 MG TAB PO SCH ×4 (09:49→22:15)
[2020-08-02] MEDS: busPIRone HCl 10 MG TAB PO SCH ×2 (09:51→22:16)
[2020-08-02] MEDS ORDERED: LORazepam 1 MG TAB PO PRN (10:02)
[2020-08-02] MEDS: PARoxetine 10 MG TAB PO SCH (22:15)
[2020-08-03] MEDS: busPIRone HCl 10 MG TAB PO SCH ×2 (09:22→21:10)
[2020-08-03] MEDS: OLANZapine 10 MG TAB PO SCH ×2 (09:23→21:10)
[2020-08-03] MEDS: LORazepam 1 MG TAB PO SCH ×4 (09:23→21:06)
[2020-08-03] MEDS: DIVALPROEX 500 MG TABLET.DR PO SCH ×2 (09:23→21:06)
[2020-08-03] MEDS: PARoxetine 10 MG TAB PO SCH (21:06)
[2020-08-04] MEDS ORDERED: OLANZapine 10 MG VIAL IM STA (09:31)
[2020-08-04] MEDS: DIVALPROEX 500 MG TABLET.DR PO SCH ×2 (09:40→21:19)
[2020-08-04] MEDS: LORazepam 1 MG TAB PO SCH ×4 (11:39→21:19)
[2020-08-04] MEDS: busPIRone HCl 10 MG TAB PO SCH ×2 (11:48→21:20)
[2020-08-04] MEDS: OLANZapine 10 MG TAB PO SCH ×2 (11:48→21:20)
[2020-08-04] MEDS: PARoxetine 10 MG TAB PO SCH (21:20)
[2020-08-05 03:43] LABS: Glucose,Whole Blood 267 mg/dL (75-99)
[2020-08-05] MEDS: OLANZapine 10 MG TAB PO SCH ×2 (08:57→21:24)
[2020-08-05] MEDS: DIVALPROEX 500 MG TABLET.DR PO SCH ×2 (08:57→21:25)
[2020-08-05] MEDS: busPIRone HCl 10 MG TAB PO SCH ×2 (08:57→21:25)
[2020-08-05] MEDS: LORazepam 1 MG TAB PO SCH ×4 (08:57→21:25)
[2020-08-05] MEDS ORDERED: LORazepam 1 MG TAB PO STA (11:30)
[2020-08-05] MEDS ORDERED: LORazepam 2 MG/ML INJ IM STA (11:32)
[2020-08-05] MEDS: PARoxetine 10 MG TAB PO SCH (21:24)
[2020-08-06] MEDS: LORazepam 1 MG TAB PO PRN (00:15)
[2020-08-06] MEDS: OLANZapine 10 MG TAB PO SCH ×2 (08:55→21:08)
[2020-08-06] MEDS: DIVALPROEX 500 MG TABLET.DR PO SCH ×2 (08:55→21:09)
[2020-08-06] MEDS: LORazepam 1 MG TAB PO SCH ×4 (08:55→21:09)
[2020-08-06] MEDS: busPIRone HCl 10 MG TAB PO SCH ×2 (08:55→21:09)
[2020-08-06] MEDS: PARoxetine 10 MG TAB PO SCH (21:08)
[2020-08-07] MEDS: LORazepam 1 MG TAB PO PRN (04:01)
[2020-08-07] MEDS ORDERED: LORazepam 2 MG/ML INJ IM STA ×2 (07:26)
[2020-08-07] MEDS: LORazepam 1 MG TAB PO SCH (08:05)
[2020-08-07] MEDS: OLANZapine 10 MG TAB PO SCH (08:05)
[2020-08-07] MEDS: DIVALPROEX 500 MG TABLET.DR PO SCH (08:05)
[2020-08-07 17:07] LABS: Glucose,Whole Blood 286 mg/dL (75-99)
[2020-08-08] MEDS: DIVALPROEX 500 MG TABLET.DR PO SCH ×3 (01:55→21:30)
[2020-08-08] MEDS: LORazepam 1 MG TAB PO SCH ×7 (01:55→21:31)
[2020-08-08] MEDS: PARoxetine 10 MG TAB PO SCH ×2 (03:35→21:30)
[2020-08-08] MEDS: OLANZapine 10 MG TAB PO SCH ×3 (03:35→21:31)
[2020-08-08] MEDS: busPIRone HCl 10 MG TAB PO SCH ×3 (03:36→21:31)
[2020-08-09] MEDS: LORazepam 1 MG TAB PO SCH ×4 (01:45→21:43)
[2020-08-09] MEDS: OLANZapine 10 MG TAB PO SCH ×2 (08:33→21:42)
[2020-08-09] MEDS: DIVALPROEX 500 MG TABLET.DR PO SCH ×2 (08:33→21:42)
[2020-08-09] MEDS: busPIRone HCl 10 MG TAB PO SCH ×2 (08:33→21:42)
[2020-08-09] MEDS: PARoxetine 10 MG TAB PO SCH (21:42)
[2020-08-10] MEDS: LORazepam 1 MG TAB PO SCH ×4 (01:22→21:13)
[2020-08-10] MEDS: LORazepam 1 MG TAB PO PRN ×2 (01:23→14:01)
[2020-08-10] MEDS: busPIRone HCl 10 MG TAB PO SCH ×2 (10:21→21:13)
[2020-08-10] MEDS: OLANZapine 10 MG TAB PO SCH ×2 (10:21→21:13)
[2020-08-10] MEDS: DIVALPROEX 500 MG TABLET.DR PO SCH ×2 (10:21→21:13)
[2020-08-10] MEDS: PARoxetine 10 MG TAB PO SCH (21:12)
[2020-08-11] MEDS: LORazepam 1 MG TAB PO SCH ×3 (02:14→12:59)
[2020-08-11] MEDS: LORazepam 1 MG TAB PO PRN (02:14)
[2020-08-11 02:20] VITALS: RESP 18
[2020-08-11] MEDS ORDERED: diphenhydrAMINE 25 MG CAP PO STA (03:06)
[2020-08-11 08:31] VITALS: TEMP 98.1
[2020-08-11] MEDS: OLANZapine 10 MG TAB PO SCH (08:32)
[2020-08-11] MEDS: busPIRone HCl 10 MG TAB PO SCH (08:32)
[2020-08-11] MEDS: DIVALPROEX 500 MG TABLET.DR PO SCH (08:32)
--- NOTE | 2020-08-11 12:55 | P.PN ---
Progress Note - Text Progress Note Date: 08/11/20 Interval History: Patient was seen today for psychiatric follow-up and assessment. Patient was transferred from [facility] through [facility] on a clinical certificate by Dr. Ricketts. Patient had been in the ER for several days as he was not meeting criteria for inpatient psychiatric hospitalization. Patient was seen sitting on his chair in his room drinking water and was agreeable to speak to hand sign writer. Patient introduced himself to hand sign writer and was fairly cooperative with conversation. Patient attempted to answer all questions however demonstrated poor comprehension of his situation and why he is not Hospital. He was alert and oriented 3. He denied any depression or any anxiety today. He claims that he has been sleeping fairly and has been taking his medications without any complaints. He does not endorse any delusions or paranoia at this time. He was fairly calm and directable and followed commands. At this time patient denies any suicidal or homical ideations, intent or plan. Patient denies any auditory, visual hallucinations. Patient denies any side effects from the medications and has been compliant with meds. Mental Status Exam: General Appearance: [Patient appears to be stated age is alert, directable, and attempts to be cooperative.] Childlike mannerisms at times. Wearing a hospital gown Behavior: [Patient is calmly seated without any agitated behavior.] Childlike. Directable and cooperative. Speech: Patient's speech is fluent and nonpressured. [place]. Mood/Affect: Mood is "okay", affect is congruent and constricted. Suicidality/Homicidality: Patient denies having any suicidal or homicidal ideation intent or plan. Perceptions: Patient denies any visual hallucinations [and denies any auditory hallucinations] Though content/process: [place], poverty of content. Does not endorse any delusions or paranoia. Directable Memory and concentration: AOX3, grossly intact for the purposes of this session Judgment and insight: Chronically limited Assessment Developmental delay Plan: -Patient is cleared psychiatrically for discharge to alf. Continue with psychiatric medications and antiepileptic medications as prescribed. Patient will need outpatient follow-up for mental health upon discharge. Negative certificate completed and placed in patient's chart. -please contact with any questions. At this time psychiatry will sign off.
[2020-08-11 15:20] VITALS: BP 110/69; PULSE 99
== END 2020-08-11 15:47 | disposition home or self-care (01) ==
LOC: EC 10:40
DX: F91.9 Conduct disorder, unspecified (principal); G40.909 Epilepsy, unspecified, not intractable, without status epilepticus; R62.50 Unspecified lack of expected normal physiological development in childhood; E11.9 Type 2 diabetes mellitus without complications; E78.5 Hyperlipidemia, unspecified; E03.9 Hypothyroidism, unspecified; K21.9 Gastro-esophageal reflux disease without esophagitis; F31.9 Bipolar disorder, unspecified; Z79.84 Long term (current) use of oral hypoglycemic drugs; Z79.899 Other long term (current) drug therapy
CPT/HCPCS: 82075; 81003; 99284; 96374; 96375; 96372 ×5; 96361 ×11; J2060 ×4; J3486; J1953

== ENCOUNTER 2021-03-04 12:54 | Inpatient (IN) | payer MEDICARE, OTHER ==
[2021-03-04] MEDS ORDERED: SODIUM CHLORIDE 0.9% 1,000 ML IV ONE ×2 (13:59→15:26)
--- NOTE | 2021-03-04 14:05 | ED ---
General Adult HPI - General Chief complaint: Weakness Stated complaint: Weakness Time Seen by Provider: 03/04/21 13:00 Source: patient, EMS, RN notes reviewed, old records reviewed Mode of arrival: EMS Limitations: altered mental status - History of Present Illness Initial comments: This is a 45-year-old male who presents emergency Department with a past medical history significant for developmentally delayed. Patient has a guardian lives in a [facility]. Patient is brought in today because since Monday he has been more lethargic he is unable to stand on his own without falling over. According to the family he has fallen and not been injured but landed on his knees knees got multiple bruises. Family states he also stopped eating which is very unlike him about 3 days ago. They have not noted any fevers had not noted any problems breathing the patient had no vomiting or diarrhea there's been no head trauma that they know of. Patient did have a medication change on February 19 they stop the lorazepam and started Klonopin. - Related Data Home Medications Medication Instructions Recorded Confirmed Atorvastatin Calcium [Lipitor] 10 mg PO HS 02/08/17 07/29/20 Divalproex [Depakote] 1,000 mg PO BID 02/08/17 07/29/20 busPIRone HCL 20 mg PO BID 02/08/17 07/29/20 levETIRAcetam [Keppra] 500 mg PO BID 02/08/17 07/29/20 lisinopriL [Zestril] 2.5 mg PO DAILY 02/08/17 07/29/20 Empagliflozin [Jardiance] 10 mg PO DAILY 12/23/19 07/29/20 Levothyroxine Sodium [Levo-T] 112 mcg PO DAILY 12/23/19 07/29/20 PARoxetine HCL 30 mg PO HS 12/23/19 07/29/20 LORazepam [Ativan] 1 mg PO QID 07/29/20 07/29/20 OLANZapine [ZyPREXA] 10 mg PO TID 07/29/20 07/29/20 haloperidoL [Haldol] 5 mg PO TID 07/29/20 07/29/20 metFORMIN HCL [metFORMIN HCL ER] 500 mg PO BID 07/29/20 07/29/20 Previous Rx's Medication Instructions Recorded Apixaban [Eliquis] 5 mg PO BID #60 tab 01/14/20 LORazepam [Ativan] 1 mg PO QID #12 tab 08/11/20 Allergies Allergy/AdvReac Type Severity Reaction Status Date / Time No Known Allergies Allergy Verified 07/29/20 11:13 Review of Systems ROS Statement: Those systems with pertinent positive or pertinent negative responses have been documented in the HPI. ROS Other: All systems not noted in ROS Statement are negative. Past Medical History Past Medical History: Diabetes Mellitus, GERD/Reflux, Hyperlipidemia, Seizure Disorder, Thyroid Disorder Additional Past Medical History / Comment(s): Developmentally delayed, NIDDM type II, last seizure many years ago, hypothyroid, anemia History of Any Multi-Drug Resistant Organisms: None Reported Past Surgical History: No Surgical Hx Reported Additional Past Surgical History / Comment(s): EGD, colonoscopy Past Anesthesia/Blood Transfusion Reactions: No Reported Reaction Past Psychological History: Bipolar Smoking Status: Never smoker Past Alcohol Use History: None Reported Past Drug Use History: None Reported - Past Family History Father Family Medical History: No Reported History Additional Family Medical History / Comment(s): Father is healthy and 78yrs old. Mother Family Medical History: Diabetes Mellitus, Myocardial Infarction ([place]) Additional Family Medical History / Comment(s): Mother is an alcoholic. Sister(s) Family Medical History: Cancer Additional Family Medical History / Comment(s): Breast cancer. General Exam - General Exam Comments Initial Comments: GENERAL: Patient is well-developed and well-nourished. Patient is nontoxic and well-hydr ated and is in no acute distress. ENT: Neck is soft and supple. No significant lymphadenopathy is noted. Oropharynx is clear. Moist mucous membranes. Neck has full range of motion without eliciting any pain. EYES: The sclera were anicteric and conjunctiva were pink and moist. Extraocular mo vements were intact and pupils were equal round and reactive to light. Eyelids were unremarkable. PULMONARY: Unlabored respirations. Good breath sounds bilaterally. No audible rales rhonchi or wheezing was noted. CARDIOVASCULAR: There is a regular rate and rhythm without any murmurs gallops or rubs. ABDOMEN: Soft and nontender with normal bowel sounds. SKIN: Skin is clear with no lesions or rashes and otherwise unremarkable. NEUROLOGIC: Patient is alert and oriented at his baseline. Cranial nerves II through XII are grossly intact. Motor and sensory are also intact. MUSCULOSKELETAL: Normal extremities with adequate strength and full range of motion. No lower extremity swelling or edema. No calf tenderness. LYMPHATICS: No significant lymphadenopathy is noted PSYCHIATRIC: Unable to assess secondary to him being developmentally delayed Limitations: altered mental status Course Vital Signs 03/04/21 03/04/21 12:56 15:09 Temperature 97 F L Pulse Rate 82 63 Respiratory 18 16 Rate Blood Pressure 99/57 97/63 O2 Sat by Pulse 96 96 Oximetry Medical Decision Making - Medical Decision Making CT brain shows no acute normalities. Chest x-ray shows no acute abnormality. I spoke with Dr. Becerril agreed to admit the patient admitted the patient wrote admitting orders. Patient's right ear has otitis externa I started the patient on Cortisporin - Lab Data Result diagrams: 03/04/21 14:06 03/04/21 14:06 Lab Results 03/04/21 03/04/21 03/04/21 Range/Units 13:59 14:06 14:06 WBC 7.1 (3.8-10.6) k/uL RBC 3.78 L (4.30-5.90) m/uL Hgb 11.2 L (13.0-17.5) gm/dL Hct 34.8 L (39.0-53.0) % MCV 92.1 (80.0-100.0) fL MCH 29.5 (25.0-35.0) pg MCHC 32.1 (31.0-37.0) g/dL RDW 14.5 (11.5-15.5) % Plt Count 195 (150-450) k/uL MPV 8.3 Neutrophils % 67 % Lymphocytes % 18 % Monocytes % 11 % Eosinophils % 1 % Basophils % 0 % Neutrophils # 4.7 (1.3-7.7) k/uL Lymphocytes # 1.3 (1.0-4.8) k/uL Monocytes # 0.8 (0-1.0) k/uL Eosinophils # 0.1 (0-0.7) k/uL Basophils # 0.0 (0-0.2) k/uL PT 10.4 (9.0-12.0) sec INR 1.0 (<1.2) APTT 22.7 (22.0-30.0) sec Sodium (137-145) mmol/L Potassium (3.5-5.1) mmol/L Chloride (98-107) mmol/L Carbon Dioxide (22-30) mmol/L Anion Gap mmol/L BUN (9-20) mg/dL Creatinine (0.66-1.25) mg/dL Est GFR (CKD-EPI)AfAm (>60 ml/min/1.73 sqM) Est GFR (CKD-EPI)NonAf (>60 ml/min/1.73 sqM) Glucose (74-99) mg/dL Calcium (8.4-10.2) mg/dL Total Bilirubin (0.2-1.3) mg/dL AST (17-59) U/L ALT (4-49) U/L Alkaline Phosphatase (38-126) U/L Troponin I (0.000-0.034) ng/mL Total Protein (6.3-8.2) g/dL Albumin (3.5-5.0) g/dL Urine Color Yellow Urine Appearance Clear (Clear) Urine pH 6.0 (5.0-8.0) Ur Specific [place] 1.026 (1.001-1.035) Urine Protein Negative (Negative) Urine Glucose (UA) Negative (Negative) Urine Ketones 1+ H (Negative) Urine Blood Negative (Negative) Urine Nitrite Negative (Negative) Urine Bilirubin Negative (Negative) Urine Urobilinogen 3.0 (<2.0) mg/dL Ur Leukocyte Esterase Negative (Negative) Urine Opiates Screen Not Detected (NotDetected) Ur Oxycodone Screen Not Detected (NotDetected) Urine Methadone Screen Not Detected (NotDetected) Ur Propoxyphene Screen Not Detected (NotDetected) Ur Barbiturates Screen Not Detected (NotDetected) Valproic Acid ug/mL U Tricyclic Antidepress Not Detected (NotDetected) Ur Phencyclidine Scrn Not Detected (NotDetected) Ur Amphetamines Screen Not Detected (NotDetected) U Methamphetamines Scrn Not Detected (NotDetected) U Benzodiazepines Scrn Not Detected (NotDetected) Urine Cocaine Screen Not Detected (NotDetected) U Marijuana (THC) Screen Not Detected (NotDetected) 03/04/21 03/04/21 03/04/21 Range/Units 14:06 14:06 15:05 WBC (3.8-10.6) k/uL RBC (4.30-5.90) m/uL Hgb (13.0-17.5) gm/dL Hct (39.0-53.0) % MCV (80.0-100.0) fL MCH (25.0-35.0) pg MCHC (31.0-37.0) g/dL RDW (11.5-15.5) % Plt Count (150-450) k/uL MPV Neutrophils % % Lymphocytes % % Monocytes % % Eosinophils % % Basophils % % Neutrophils # (1.3-7.7) k/uL Lymphocytes # (1.0-4.8) k/uL Monocytes # (0-1.0) k/uL Eosinophils # (0-0.7) k/uL Basophils # (0-0.2) k/uL PT (9.0-12.0) sec INR (<1.2) APTT (22.0-30.0) sec Sodium 141 (137-145) mmol/L Potassium 4.0 (3.5-5.1) mmol/L Chloride 104 (98-107) mmol/L Carbon Dioxide 31 H (22-30) mmol/L Anion Gap 6 mmol/L BUN 24 H (9-20) mg/dL Creatinine 0.78 (0.66-1.25) mg/dL Est GFR (CKD-EPI)AfAm >90 (>60 ml/min/1.73 sqM) Est GFR (CKD-EPI)NonAf >90 (>60 ml/min/1.73 sqM) Glucose 87 (74-99) mg/dL Calcium 8.6 (8.4-10.2) mg/dL Total Bilirubin 0.3 (0.2-1.3) mg/dL AST 35 (17-59) U/L ALT 15 (4-49) U/L Alkaline Phosphatase 56 (38-126) U/L Troponin I <0.012 (0.000-0.034) ng/mL Total Protein 5.9 L (6.3-8.2) g/dL Albumin 3.2 L (3.5-5.0) g/dL Urine Color Urine Appearance (Clear) Urine pH (5.0-8.0) Ur Specific [place] (1.001-1.035) Urine Protein (Negative) Urine Glucose (UA) (Negative) Urine Ketones (Negative) Urine Blood (Negative) Urine Nitrite (Negative) Urine Bilirubin (Negative) Urine Urobilinogen (<2.0) mg/dL Ur Leukocyte Esterase (Negative) Urine Opiates Screen (NotDetected) Ur Oxycodone Screen (NotDetected) Urine Methadone Screen (NotDetected) Ur Propoxyphene Screen (NotDetected) Ur Barbiturates Screen (NotDetected) Valproic Acid 71.3 ug/mL U Tricyclic Antidepress (NotDetected) Ur Phencyclidine Scrn (NotDetected) Ur Amphetamines Screen (NotDetected) U Methamphetamines Scrn (NotDetected) U Benzodiazepines Scrn (NotDetected) Urine Cocaine Screen (NotDetected) U Marijuana (THC) Screen (NotDetected) Disposition Clinical Impression: Altered mental status, Inability to walk, Decrease in appetite, Otitis externa Disposition: ADMITTED IP TO THIS [facility] Referrals: Paulino Hermosillo MD [REFERRING] - 1-2 days Time of Disposition: 15:16
[2021-03-04 14:27] LABS: Basophils % (A) 0 %; Eosinophils # (A) 0.1 k/uL (0-0.7); Eosinophils % (A) 1 %; HCT 34.8 % (39.0-53.0); HGB 11.2 gm/dL (13.0-17.5); Lymphocytes # (A) 1.3 k/uL (1.0-4.8); Lymphocytes % (A) 18 %; MCH 29.5 pg (25.0-35.0); MCHC 32.1 g/dL (31.0-37.0); MCV 92.1 fL (80.0-100.0); Mean Platelet Volume 8.3; Monocytes # (A) 0.8 k/uL (0-1.0); Monocytes % (A) 11 %; Neutrophils # (A) 4.7 k/uL (1.3-7.7); Neutrophils % (A) 67 %; Platelet Count 195 k/uL (150-450); RBC 3.78 m/uL (4.30-5.90); RDW 14.5 % (11.5-15.5); WBC 7.1 k/uL (3.8-10.6)
[2021-03-04 14:39] LABS: Partial Thromboplastin Time 22.7 sec (22.0-30.0); Prothrombin Time 10.4 sec (9.0-12.0)
[2021-03-04 14:41] LABS: ALT 15 U/L (4-49); AST 35 U/L (17-59); African American GFR (CKD) >90 (>60 ml/min/1.73 sqM); Albumin 3.2 g/dL (3.5-5.0); Alkaline Phosphatase 56 U/L (38-126); Anion Gap 6 mmol/L; Blood Urea Nitrogen 24 mg/dL (9-20); Calcium 8.6 mg/dL (8.4-10.2); Carbon Dioxide 31 mmol/L (22-30); Chloride 104 mmol/L (98-107); Glucose 87 mg/dL (74-99); Non-African American GFR(CKD) >90 (>60 ml/min/1.73 sqM); Sodium 141 mmol/L (137-145); Total Bilirubin 0.3 mg/dL (0.2-1.3); Total Protein 5.9 g/dL (6.3-8.2)
[2021-03-04 14:46] LABS: Appearance,Urine Clear (Clear); Bilirubin,Urine Negative (Negative); Blood,Urine Negative (Negative); Color,Urine Yellow; Glucose,Urine (UA) Negative (Negative); Ketones,Urine 1+ (Negative); Leukocyte Esterase,Urine Negative (Negative); Nitrite,Urine Negative (Negative); Protein,Urine Negative (Negative); Specific Gravity,Urine 1.026 (1.001-1.035)
[2021-03-04 14:57] LABS: Amphetamine Screen,Urine Not Detected (NotDetected); Barbiturate Screen,Urine Not Detected (NotDetected); Benzodiazepines Screen,Urine Not Detected (NotDetected); Cocaine Screen,Urine Not Detected (NotDetected); Methadone Screen, Urine Not Detected (NotDetected); Opiate Screen,Urine Not Detected (NotDetected); Oxycodone Screen, Urine Not Detected (NotDetected); Phencyclidine Screen,Urine Not Detected (NotDetected); Tricyclic Antidepressant,Urine Not Detected (NotDetected); Urn Cannabinoid Scrn Not Detected (NotDetected)
--- NOTE | 2021-03-04 15:19 | XR ---
EXAMINATION TYPE: XR chest 2V DATE OF EXAM: 03/04/2021 COMPARISON: 12/08/2018 HISTORY: Altered mental status TECHNIQUE: Frontal and lateral views of the chest are obtained. FINDINGS: There is no focal air space opacity, pleural effusion, or pneumothorax seen. The cardiac silhouette size is within normal limits. The osseous structures are intact. IMPRESSION: No acute cardiopulmonary process.
--- NOTE | 2021-03-04 15:27 | CT ---
EXAMINATION TYPE: CT brain wo con DATE OF EXAM: 03/04/2021 COMPARISON: CT brain 08/01/2020 HISTORY: Patient poor historian. CT DLP: 1247.4 mGycm. Automated Exposure Control for Dose Reduction was Utilized. TECHNIQUE: CT scan of the head is performed without contrast. FINDINGS: There is no acute intracranial hemorrhage, mass effect, or midline shift identified. The ventricles and sulci are within normal limits in size. The globes are intact and the visualized sin uses are clear. The abnormal calcific density along the medial aspect of the left globe seen on previ ous exam and measuring approximately 11 mm x 7 mm x 13 mm superomedially is again noted, correlate wi th physical exam. IMPRESSION: No acute intracranial hemorrhage, mass effect, or midline shift is seen. Abnormal dense orbital mass as noted on prior exam, correlate.
--- NOTE | 2021-03-04 17:30 | P.HPIM ---
History of Present Illness H&P Date: 03/04/21 Chief Complaint: Abnormal behavior History of presenting complaint: This is a pleasant 44-year-old patient who follows with Dr. Hermosillo. 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 In the ER patient is accompanied by the sister, caregiver at the [facility] and the patient's mother. He says resident of [facility]. Patient does follow with a psychiatrist Dr. Ricketts. On February 19 ago patient was changed from his lorazepam to clorazepam. Prior to that it was felt that the patient is very sleepy. Since the change of medication patient has become rather lethargic. Sometimes instead of walking he would just laying forward. He has been forgetting things. Decreased appetite and not eating. Sometimes uses start laughing. Has also noticed during the interview. And then he will does often become quiet and sleepy. And maybe not answer. In the past he had to be taken down to [facility] and had 3 months of treatment down there. No fever no chills. Review of systems: GEN.: Decreased appetite, tired EYES: None HEENT: None NECK: None RESPIRATORY: None CARDIOVASCULAR: None GASTROINTESTINAL: Constipation GENITOURINARY: None MUSCULOSKELETAL: None LYMPHATICS: None HEMATOLOGICAL: None PSYCHIATRY: Mental retardation, as above NEUROLOGICAL: None Past medical history to include: Tuberous sclerosis, diabetes, hyperlipidemia, mental retardation, seizure disorder, depression Social history: Does not smoke or drink alcohol. Lives at [facility]. Physical examination: VITAL SIGNS: 97, 82, 18, 99 x 57, 96% room air GENERAL: BMI 25.6, reclining in bed, lethargic but awake at times EYES: Pupils equal. Conjunctiva normal. HEENT: External appearance of nose and ears normal, oral cavity grossly normal. NECK: JVD not raised; masses not palpable. HEART: First and second heart sounds are normal; no edema. LUNGS: Respiratory rate normal; clear to auscultation. ABDOMEN: Soft, nontender, liver spleen not palpable, no masses palpable. PSYCH: Doesn't really give any formed answers NEUROLOGICAL: Cranial nerves grossly intact; no facial asymmetry, power and sensation grossly intact. LYMPHATICS: No lymph nodes palpable in the axilla and neck INVESTIGATIONS, reviewed in the clinical context: WBC 7.1 hemoglobin 11.2 platelets 195 potassium 4 creatinine 0.78 Urine positive for ketones Urine drug screen negative Coronavirus [PCR] not detected Assessment and plan: -This is a patient who is a change in his medications by psychiatrist Dr. Ricketts. Patient had been rather drowsy on his lorazepam. He has been changed over to lorazepam. Behavior has been abnormal. We'll consult psychiatry to adjust medications. That does not appear to be any infectious process precipitating the same. Daytime dose of Klonopin will be held -Paroxysmal atrial fibrillation , currently sinus rhythm Continue eliquis -Diabetes mellitus type 2 on oral hypoglycemic Resume at [place]. Follow Accu-Cheks -Chronic epilepsy disorder Continue with Keppra, Depakote -Depression otherwise specified -Hypothyroid Continue with Synthroid -Hyperlipidemia Continue with Lipitor Care was discussed with the patient's sister and mother caregiver at the bedside. Psychiatry's been consulted to adjust medications. Home medications resumed. Accu-Cheks to be followed. Fall precautions. Given the complexity and severity of patient's condition expect the patient to be in the hospital at least for 2 overnights. Given patient's symptoms patient will need at least 2 nights for medications to be adjusted before is safe for him to go back to his place. Past Medical History Past Medical History: Diabetes Mellitus, GERD/Reflux, Hyperlipidemia, Seizure Disorder, Thyroid Disorder Additional Past Medical History / Comment(s): Developmentally delayed, NIDDM type II, last seizure many years ago, hypothyroid, anemia History of Any Multi-Drug Resistant Organisms: None Reported Past Surgical History: No Surgical Hx Reported Additional Past Surgical History / Comment(s): EGD, colonoscopy Past Anesthesia/Blood Transfusion Reactions: No Reported Reaction Past Psychological History: Bipolar Smoking Status: Never smoker Past Alcohol Use History: None Reported Past Drug Use History: None Reported - Past Family History Father Family Medical History: No Reported History Additional Family Medical History / Comment(s): Father is healthy and 78yrs old. Mother Family Medical History: Diabetes Mellitus, Myocardial Infarction ([place]) Additional Family Medical History / Comment(s): Mother is an alcoholic. Sister(s) Family Medical History: Cancer Additional Family Medical History / Comment(s): Breast cancer. Medications and Allergies Home Medications Medication Instructions Recorded Confirmed Type Divalproex [Depakote] 500 mg PO BID@0600,1700 02/08/17 03/04/21 History levETIRAcetam [Keppra] 500 mg PO BID@0600,2100 02/08/17 03/04/21 History lisinopriL [Zestril] 2.5 mg PO DAILY@0600 02/08/17 03/04/21 History Levothyroxine Sodium [Levo-T] 112 mcg PO DAILY@0600 12/23/19 03/04/21 History OLANZapine [ZyPREXA] 10 mg PO DAILY@1200 07/29/20 03/04/21 History Apixaban [Eliquis] 5 mg PO BID@0600,2100 03/04/21 03/04/21 History Atorvastatin [Lipitor] 40 mg PO HS 03/04/21 03/04/21 History Divalproex Sodium [Depakote] 1,000 mg PO HS 03/04/21 03/04/21 History Docusate [Colace] 100 mg PO DAILY@0600 03/04/21 03/04/21 History Metoprolol Tartrate [Lopressor] 25 mg PO DAILY 03/04/21 03/04/21 History OLANZapine [ZyPREXA] 20 mg PO HS 03/04/21 03/04/21 History PARoxetine HCL [Paxil] 40 mg PO HS 03/04/21 03/04/21 History clonazePAM [KlonoPIN] 0.5 mg PO BID@0600,1200 03/04/21 03/04/21 History clonazePAM [KlonoPIN] 1 mg PO HS 03/04/21 03/04/21 History metFORMIN HCL [Glucophage] 500 mg PO BID@0600,1700 03/04/21 03/04/21 History traZODone HCL [Desyrel] 100 mg PO HS 03/04/21 03/04/21 History Allergies Allergy/AdvReac Type Severity Reaction Status Date / Time No Known Allergies Allergy Verified 03/04/21 15:46 Physical Exam Vitals: Vital Signs Temp Pulse Resp BP Pulse Ox 03/04/21 15:09 63 16 97/63 96 03/04/21 12:56 97 F L 82 18 99/57 96 Intake and Output 03/04/21 03/04/21 03/04/21 06:59 14:59 22:59 Other: Weight 95.254 kg Results CBC & Chem 7: 03/04/21 14:06 03/04/21 14:06 Labs: Abnormal Lab Results - Last 24 Hours (Table) 03/04/21 03/04/21 03/04/21 Range/Units 13:59 14:06 14:06 RBC 3.78 L (4.30-5.90) m/uL Hgb 11.2 L (13.0-17.5) gm/dL Hct 34.8 L (39.0-53.0) % Carbon Dioxide 31 H (22-30) mmol/L BUN 24 H (9-20) mg/dL Total Protein 5.9 L (6.3-8.2) g/dL Albumin 3.2 L (3.5-5.0) g/dL Urine Ketones 1+ H (Negative)
[2021-03-04 17:54] LABS: Glucose,Whole Blood 111 mg/dL (75-99)
[2021-03-04] MEDS: INSULIN ASPART (NovoLOG) 100 UNIT/ML VIAL SQ SCH ×2 (17:56→21:21)
[2021-03-04] MEDS: NEOMYCIN-POLYMYXIN-HC (3.5-10,000-10 MG) OTIC DROPS 10 ML BTL RIGHT EAR SCH (18:02)
[2021-03-04] MEDS: metFORMIN 500 MG TAB PO SCH (18:02)
[2021-03-04 20:50] LABS: Glucose,Whole Blood 113 mg/dL (75-99)
[2021-03-04] MEDS ORDERED: PARoxetine 20 MG TAB PO SCH (21:00)
[2021-03-04] MEDS ORDERED: clonazePAM 1 MG TAB PO SCH (21:00)
[2021-03-04] MEDS: APIXABAN 5 MG TAB PO SCH (22:17)
[2021-03-04] MEDS: DIVALPROEX 500 MG TABLET.DR PO SCH (22:18)
[2021-03-04] MEDS: ATORVASTATIN 40 MG TAB PO SCH (22:19)
[2021-03-04] MEDS: traZODone HCL 100 MG TAB PO SCH (22:19)
[2021-03-05] MEDS: levETIRAcetam 500 MG TAB PO SCH ×3 (03:57→21:13)
[2021-03-05] MEDS: OLANZapine 10 MG TAB PO SCH ×3 (03:57→22:22)
[2021-03-05] MEDS: NEOMYCIN-POLYMYXIN-HC (3.5-10,000-10 MG) OTIC DROPS 10 ML BTL RIGHT EAR SCH ×5 (03:57→21:14)
[2021-03-05] MEDS: DIVALPROEX 500 MG TABLET.DR PO SCH ×3 (05:27→21:13)
[2021-03-05] MEDS: APIXABAN 5 MG TAB PO SCH ×2 (05:27→21:13)
[2021-03-05] MEDS: LEVOTHYROXINE 112 MCG TAB PO SCH (05:28)
[2021-03-05] MEDS: metFORMIN 500 MG TAB PO SCH ×2 (05:28→17:37)
[2021-03-05 07:04] LABS: Glucose,Whole Blood 91 mg/dL (75-99)
[2021-03-05] MEDS: INSULIN ASPART (NovoLOG) 100 UNIT/ML VIAL SQ SCH ×4 (07:17→20:40)
[2021-03-05] MEDS: METOPROLOL TARTRATE 25 MG TAB PO SCH (10:02)
[2021-03-05 11:29] LABS: Glucose,Whole Blood 100 mg/dL (75-99)
[2021-03-05] MEDS ORDERED: OLANZapine 10 MG TAB PO SCH (12:00)
--- NOTE | 2021-03-05 14:55 | P.PN ---
Progress Note - Text Progress Note Date: 03/05/21 Chief Complaint: Abnormal behavior History of presenting complaint: This is a pleasant 44-year-old patient who follows with Dr. Hermosillo. 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 In the ER patient is accompanied by the sister, caregiver at the [facility] and the patient's mother. He says resident of [facility]. Patient does follow with a psychiatrist Dr. Ricketts. On February 19 ago patient was changed from his lorazepam to clorazepam. Prior to that it was felt that the patient is very sleepy. Since the change of medication patient has become rather lethargic. Sometimes instead of walking he would just laying forward. He has been forgetting things. Decreased appetite and not eating. Sometimes uses start laughing. Has also noticed during the interview. And then he will does often become quiet and sleepy. And maybe not answer. In the past he had to be taken down to [facility] and had 3 months of treatment down there. No fever no chills. Psychiatry consulted. I did stop the daytime dose of Klonopin. Today: Bit more awake. Answering some questions. Had about 75% of his breakfast. Review of systems: Was done for constitutional, cardiovascular, GI, pulmonary. relevant finding as above Active Medications Apixaban (Apixaban 5 Mg Tab) 5 mg PO BID@0600,2100 [facility]; Protocol Last Admin: 03/05/21 05:27 Dose: Not Given Documented by: Atorvastatin Calcium (Atorvastatin 40 Mg Tab) 40 mg PO [facility] Last Admin: 03/04/21 22:19 Dose: 40 mg Documented by: Clonazepam (Clonazepam 1 Mg Tab) 1 mg PO [facility] Last Admin: 03/04/21 22:19 Dose: 1 mg Documented by: Divalproex Sodium (Divalproex 500 Mg Tablet.) 500 mg PO BID@0600,1700 [facility] Last Admin: 03/05/21 05:27 Dose: Not Given Documented by: Divalproex Sodium (Divalproex 500 Mg Tablet.) 1,000 mg PO [facility] Last Admin: 03/04/21 22:18 Dose: 1,000 mg Documented by: Insulin Aspart (Insulin Aspart (Novolog) 100 Unit/Ml Vial) 0 unit SQ [facility]; Protocol Last Admin: 03/05/21 12:21 Dose: Not Given Documented by: Levetiracetam (Levetiracetam 500 Mg Tab) 500 mg PO BID@0600,2100 [facility] Last Admin: 03/05/21 05:27 Dose: Not Given Documented by: Levothyroxine Sodium (Levothyroxine 112 Mcg Tab) 112 mcg PO DAILY@0630 [facility] Last Admin: 03/05/21 05:28 Dose: Not Given Documented by: Lisinopril (Lisinopril 2.5 Mg Tab) 2.5 mg PO DAILY@0900 [facility] Last Admin: 03/05/21 10:02 Dose: Not Given Documented by: Metformin HCl (Metformin 500 Mg Tab) 500 mg PO BID@0600,1700 [facility] Last Admin: 03/05/21 05:28 Dose: Not Given Documented by: Metoprolol Tartrate (Metoprolol Tartrate 25 Mg Tab) 25 mg PO DAILY [facility] Last Admin: 03/05/21 10:02 Dose: Not Given Documented by: Neomycin/Polymyxin/Hydrocortisone (Mutfsvsi-Rwixprvox-We (3.5-10,000-10 Mg) Otic Drops 10 Ml Btl) 4 drops RIGHT EAR QID [facility] Last Admin: 03/05/21 12:53 Dose: 4 drops Documented by: Olanzapine (Olanzapine 10 Mg Tab) 20 mg PO [facility] Last Admin: 03/05/21 03:57 Dose: 20 mg Documented by: Olanzapine (Olanzapine 10 Mg Tab) 10 mg PO DAILY@1200 [facility] Last Admin: 03/05/21 12:52 Dose: 10 mg Documented by: Paroxetine HCl (Paroxetine 20 Mg Tab) 40 mg PO [facility] Last Admin: 03/04/21 22:19 Dose: 40 mg Documented by: Trazodone HCl (Trazodone Hcl 100 Mg Tab) 100 mg PO [facility] Last Admin: 03/04/21 22:19 Dose: 100 mg Documented by: Past medical history to include: Tuberous sclerosis, diabetes, hyperlipidemia, mental retardation, seizure disorder, depression Social history: Does not smoke or drink alcohol. Lives at [facility]. Physical examination: VITAL SIGNS: 98.1, 68, 18, 98/60, 92% room air GENERAL: BMI 25.6, reclining in bed, but more awake today EYES: Pupils equal. Conjunctiva normal. HEENT: External appearance of nose and ears normal, oral cavity grossly normal. NECK: JVD not raised; masses not palpable. HEART: First and second heart sounds are normal; no edema. LUNGS: Respiratory rate normal; clear to auscultation. ABDOMEN: Soft, nontender, liver spleen not palpable, no masses palpable. PSYCH: Engaging in some conversation today INVESTIGATIONS, reviewed in the clinical context: WBC 7.1 hemoglobin 11.2 platelets 195 potassium 4 creatinine 0.78 Urine positive for ketones Urine drug screen negative Coronavirus [PCR] not detected Assessment and plan: -This is a patient who is a change in his medications by psychiatrist Dr. Ricketts. Patient had been rather drowsy on his lorazepam. He has been changed over to lorazepam. Behavior has been abnormal. We'll consult psychiatry to adjust medications. That does not appear to be any infectious process precipitating the same. Daytime dose of Klonopin will be held. Will DC Paxil -Paroxysmal atrial fibrillation , currently sinus rhythm Continue eliquis -Diabetes mellitus type 2 on oral hypoglycemic Resume at [facility]. Follow Accu-Cheks -Chronic epilepsy disorder Continue with Catina Goodman -Depression otherwise specified -Hypothyroid Continue with Synthroid -Hyperlipidemia Continue with Lipitor . Patient is daytime dose of Klonopin was discontinued yesterday. Will DC Paxil. Awaiting input from psychiatry. Other medications to continue.
[2021-03-05 16:51] LABS: Glucose,Whole Blood 135 mg/dL (75-99)
[2021-03-05 20:38] LABS: Glucose,Whole Blood 101 mg/dL (75-99)
[2021-03-05] MEDS ORDERED: clonazePAM 0.5 MG TAB PO SCH (21:00)
[2021-03-05] MEDS: traZODone HCL 100 MG TAB PO SCH (21:13)
[2021-03-05] MEDS: ATORVASTATIN 40 MG TAB PO SCH (21:13)
[2021-03-06] MEDS: DIVALPROEX 500 MG TABLET.DR PO SCH ×3 (06:06→23:17)
[2021-03-06] MEDS: metFORMIN 500 MG TAB PO SCH ×2 (06:06→17:18)
[2021-03-06] MEDS: APIXABAN 5 MG TAB PO SCH ×2 (06:06→23:18)
[2021-03-06] MEDS: LEVOTHYROXINE 112 MCG TAB PO SCH (06:06)
[2021-03-06] MEDS: levETIRAcetam 500 MG TAB PO SCH ×2 (06:06→23:18)
[2021-03-06 07:09] LABS: Glucose,Whole Blood 108 mg/dL (75-99)
[2021-03-06] MEDS: INSULIN ASPART (NovoLOG) 100 UNIT/ML VIAL SQ SCH ×4 (08:00→21:02)
[2021-03-06] MEDS: METOPROLOL TARTRATE 25 MG TAB PO SCH (09:07)
[2021-03-06] MEDS: NEOMYCIN-POLYMYXIN-HC (3.5-10,000-10 MG) OTIC DROPS 10 ML BTL RIGHT EAR SCH ×4 (09:10→23:21)
--- NOTE | 2021-03-06 09:25 | CONS ---
CONSULTATION DATE OF SERVICE: 03/05/2021 PURPOSE FOR CONSULTATION: Evaluate for lethargy related to his psychotropic medications. HISTORY OF PRESENTING ILLNESS: Only limited information was available and the patient was not able to provide any history. He is a 45-year-old male. He is followed by Dr. Flores. He has intellectual disability in at least the moderate range. He is followed psychiatrically by Dr. Ricketts. He resides in [facility]. According to the records on February 19 his medications were changed where he previously had been on lorazepam and was switched to clonazepam. The purpose for the change was that it was felt the patient was quite sleepy on lorazepam. In going to clonazepam apparently he became lethargic. He had decreased appetite and was not eating. It was noted that during the interviews he could appear quite sleepy. Prior to admission he had been on Klonopin 0.5 mg in the morning, 0.5 mg at noon and 1 mg at bedtime. In addition, he was on Paxil 40 mg a day, Zyprexa 10 mg at noon, 20 mg at bedtime, Depakote 500 mg at 6:00 am, 500 mg at 1700 and 1000 mg at bedtime and Desyrel 100 mg a day. In addition, he is on Keppra as an additional psychoactive medication. His Depakote level on the at 3:00 pm was 71. It is noted that since his admission, Dr. Becerril discontinued Paxil. He received Paxil 40 mg at 10:00 pm on the . Klonopin had been reduced to 1 mg at only. He received 1 mg at 10:00 pm on the and 0.5 mg at 9:00 pm today. Zyprexa has been continued at 10 mg at noon, 20 mg at bedtime. Trazodone has been continued at 100 mg at bedtime MENTAL STATUS EXAM: The patient was lying in bed with head somewhat up. He gave fairly good eye contact. He was somewhat restless. He would respond to questions though his speech was garbled. It was difficult to interpret anything that he was trying to say. He smiled a little. He did not seem to be distressed in any way. I asked him a few basic command questions that he also did not respond to in any clear way. ASSESSMENT: This 45-year-old male is diagnosed with intellectual disability. He likely has sedation related to his psychotropic medications. His Klonopin has been reduced. Still, he may get more extended sedation from Klonopin versus Ativan. I will discontinue Klonopin and start Ativan 0.25 mg a day that he will receive for the next 2 days and then discontinue Ativan altogether. I will reduce Zyprexa to 5 mg at noon and 10 mg at bedtime. If he sleeps well at night there would be consideration for reducing his trazodone from 100 mg down to 50 mg. If the patient does show significant restlessness, especially in the next 1-2 days, there might be consideration for restarting Paxil at 20 mg dose. Patient's may have a discontinuation syndrome from abruptly stopping Paxil at a 40 mg dose, though that remains to be seen. If he were to have restlessness and the Paxil was restarted, he could continue on Paxil 20 mg a day for 4-5 days and then discontinue it and likely would be able to go off Paxil without difficulty. It will be difficult to make any longer term determinations regarding his psychotropic medications without input from Dr. Ricketts, which would not likely happen until Monday. In addition, there has not been any documentation that I have seen from his [facility] in regard to the current issues leading to his hospitalization as well as the longer-term issues regarding psychiatric and mental health care. It would be helpful to get input from the [facility] as far. As for treatment and discharge planning, I will not be in the hospital for the next 10 days. If additional input is needed from Psychiatry, please contact the psychiatric unit for further consultation. MMSEBL / IJN: [id number] /
[2021-03-06 11:35] LABS: Glucose,Whole Blood 105 mg/dL (75-99)
[2021-03-06] MEDS: PARoxetine 20 MG TAB PO SCH (13:07)
[2021-03-06] MEDS: OLANZapine 5 MG TAB PO SCH (13:08)
[2021-03-06 16:14] LABS: Glucose,Whole Blood 141 mg/dL (75-99)
[2021-03-06 16:36] LABS: Glucose,Whole Blood 154 mg/dL (75-99)
[2021-03-06 20:37] LABS: Glucose,Whole Blood 128 mg/dL (75-99)
--- NOTE | 2021-03-06 20:52 | P.PN ---
Progress Note - Text Progress Note Date: 03/06/21 Chief Complaint: Abnormal behavior History of presenting complaint: This is a pleasant 44-year-old patient who follows with Dr. Hermosillo. 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 In the ER patient is accompanied by the sister, caregiver at the [facility] and the patient's mother. He says resident of [facility]. Patient does follow with a psychiatrist Dr. Ricketts. On February 19 ago patient was changed from his lorazepam to clorazepam. Prior to that it was felt that the patient is very sleepy. Since the change of medication patient has become rather lethargic. Sometimes instead of walking he would just laying forward. He has been forgetting things. Decreased appetite and not eating. Sometimes uses start laughing. Has also noticed during the interview. And then he will does often become quiet and sleepy. And maybe not answer. In the past he had to be taken down to [facility] and had 3 months of treatment down there. No fever no chills. Psychiatry consulted. Daytime dose of Zyprexa cut back to 5 mg and the p.m. dose of Zyprexa cutback to 10 mg, Klonopin was discontinued by psychiatry. Dose of Paxil cutback to 20 mg. Ativan at night was added. Today: Oral intake much better. Patient more awake. Review of systems: Was done for constitutional, cardiovascular, GI, pulmonary. relevant finding as above Active Medications Apixaban (Apixaban 5 Mg Tab) 5 mg PO BID@0600,2100 [facility]; Protocol Last Admin: 03/05/21 05:27 Dose: Not Given Documented by: Atorvastatin Calcium (Atorvastatin 40 Mg Tab) 40 mg PO [facility] Last Admin: 03/04/21 22:19 Dose: 40 mg Documented by: Clonazepam (Clonazepam 1 Mg Tab) 1 mg PO [facility] Last Admin: 03/04/21 22:19 Dose: 1 mg Documented by: Divalproex Sodium (Divalproex 500 Mg Tablet.) 500 mg PO BID@0600,1700 [facility] Last Admin: 03/05/21 05:27 Dose: Not Given Documented by: Divalproex Sodium (Divalproex 500 Mg Tablet.) 1,000 mg PO [facility] Last Admin: 03/04/21 22:18 Dose: 1,000 mg Documented by: Insulin Aspart (Insulin Aspart (Novolog) 100 Unit/Ml Vial) 0 unit SQ [facility]; Protocol Last Admin: 03/05/21 12:21 Dose: Not Given Documented by: Levetiracetam (Levetiracetam 500 Mg Tab) 500 mg PO BID@0600,2100 [facility] Last Admin: 03/05/21 05:27 Dose: Not Given Documented by: Levothyroxine Sodium (Levothyroxine 112 Mcg Tab) 112 mcg PO DAILY@0630 [facility] Last Admin: 03/05/21 05:28 Dose: Not Given Documented by: Lisinopril (Lisinopril 2.5 Mg Tab) 2.5 mg PO DAILY@0900 [facility] Last Admin: 03/05/21 10:02 Dose: Not Given Documented by: Metformin HCl (Metformin 500 Mg Tab) 500 mg PO BID@0600,1700 [facility] Last Admin: 03/05/21 05:28 Dose: Not Given Documented by: Metoprolol Tartrate (Metoprolol Tartrate 25 Mg Tab) 25 mg PO DAILY [facility] Last Admin: 03/05/21 10:02 Dose: Not Given Documented by: Neomycin/Polymyxin/Hydrocortisone (Gwdzeybn-Jqcqnblub-Wz (3.5-10,000-10 Mg) Otic Drops 10 Ml Btl) 4 drops RIGHT EAR QID [facility] Last Admin: 03/05/21 12:53 Dose: 4 drops Documented by: Olanzapine (Olanzapine 10 Mg Tab) 20 mg PO [facility] Last Admin: 03/05/21 03:57 Dose: 20 mg Documented by: Olanzapine (Olanzapine 10 Mg Tab) 10 mg PO DAILY@1200 [facility] Last Admin: 03/05/21 12:52 Dose: 10 mg Documented by: Paroxetine HCl (Paroxetine 20 Mg Tab) 40 mg PO [facility] Last Admin: 03/04/21 22:19 Dose: 40 mg Documented by: Trazodone HCl (Trazodone Hcl 100 Mg Tab) 100 mg PO [facility] Last Admin: 03/04/21 22:19 Dose: 100 mg Documented by: Past medical history to include: Tuberous sclerosis, diabetes, hyperlipidemia, mental retardation, seizure disorder, depression Social history: Does not smoke or drink alcohol. Lives at [facility]. Physical examination: VITAL SIGNS: 98.1, 68, 18, 98/60, 92% room air GENERAL: BMI 25.6, reclining in bed, but more awake today EYES: Pupils equal. Conjunctiva normal. HEENT: External appearance of nose and ears normal, oral cavity grossly normal. NECK: JVD not raised; masses not palpable. HEART: First and second heart sounds are normal; no edema. LUNGS: Respiratory rate normal; clear to auscultation. ABDOMEN: Soft, nontender, liver spleen not palpable, no masses palpable. PSYCH: Engaging in some conversation today INVESTIGATIONS, reviewed in the clinical context: WBC 7.1 hemoglobin 11.2 platelets 195 potassium 4 creatinine 0.78 Urine positive for ketones Urine drug screen negative Coronavirus [PCR] not detected Assessment and plan: -This is a patient who is a change in his medications by psychiatrist Dr. Ricketts. Patient had been rather drowsy on his lorazepam. He has been changed over to lorazepam. Behavior has been abnormal. We'll consult psychiatry to adjust medications. That does not appear to be any infectious process precipitating the same. Daytime dose of Klonopin will be held. Will DC Paxil -Paroxysmal atrial fibrillation , currently sinus rhythm Continue eliquis. Lopressor -Diabetes mellitus type 2 on oral hypoglycemic Resume at [facility]. Follow Accu-Cheks -Chronic epilepsy disorder Continue with Keppra Depakote -Depression otherwise specified -Hypothyroid Continue with Synthroid -Hyperlipidemia Continue with Lipitor -Hypotension DC DESMOND inhibitor. Change Lopressor to 12.5 twice a day . Klonopin has been discontinued. Patient is on Ativan daily at bedtime. Paxil at 20 mg a day will be started. DC DESMOND inhibitor. Change Lopressor 12.5 twice daily. Discussed with the nurse about sleep hygiene. Instructions given. Also discussed with psychiatry. Total time spent about 40 minutes with over 20 was of discussion.
[2021-03-06] MEDS ORDERED: LORazepam 0.5 MG TAB PO SCH ×2 (21:00)
[2021-03-06] MEDS: OLANZapine 10 MG TAB PO SCH (23:17)
[2021-03-06] MEDS: ATORVASTATIN 40 MG TAB PO SCH (23:18)
[2021-03-06] MEDS: traZODone HCL 100 MG TAB PO SCH (23:18)
[2021-03-07] MEDS: DIVALPROEX 500 MG TABLET.DR PO SCH (06:20)
[2021-03-07] MEDS: LEVOTHYROXINE 112 MCG TAB PO SCH (06:21)
[2021-03-07] MEDS: APIXABAN 5 MG TAB PO SCH (06:21)
[2021-03-07] MEDS: metFORMIN 500 MG TAB PO SCH (06:21)
[2021-03-07] MEDS: levETIRAcetam 500 MG TAB PO SCH (06:27)
[2021-03-07 07:08] LABS: Glucose,Whole Blood 106 mg/dL (75-99)
[2021-03-07] MEDS: INSULIN ASPART (NovoLOG) 100 UNIT/ML VIAL SQ SCH ×2 (07:32→11:55)
[2021-03-07] MEDS: PARoxetine 20 MG TAB PO SCH (08:43)
[2021-03-07] MEDS: NEOMYCIN-POLYMYXIN-HC (3.5-10,000-10 MG) OTIC DROPS 10 ML BTL RIGHT EAR SCH ×2 (08:44→12:58)
[2021-03-07] MEDS ORDERED: METOPROLOL TARTRATE 12.5 MG TAB PO SCH (09:00)
[2021-03-07 11:28] LABS: Glucose,Whole Blood 100 mg/dL (75-99)
[2021-03-07] MEDS: OLANZapine 5 MG TAB PO SCH (12:58)
[2021-03-07 14:14] VITALS: PULSE 79; RESP 18; TEMP 97.9
[2021-03-07 14:16] VITALS: BP 96/68
--- NOTE | 2021-03-07 15:48 | P.DS ---
Providers Date of admission: 03/04/21 15:26 Expected date of discharge: 03/07/21 Attending physician: Scott Becerril Consults: 03/04/21 15:26 Consult Physician Urgent Consulting Provider: Arnoldo Han Consult Reason/Comments: Altered mental status, decreased appetite Do you want consulting provider notified?: Yes Primary care physician: [facility] Course: Chief Complaint: Abnormal behavior History of presenting complaint: This is a pleasant 44-year-old patient who follows with Dr. Hermosillo. 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 In the ER patient is accompanied by the sister, caregiver at the [facility] and the patient's mother. He says resident of [facility]. Patient does follow with a psychiatrist Dr. Ricketts. On February 19 ago patient was changed from his lorazepam to clorazepam. Prior to that it was felt that the patient is very sleepy. Since the change of medication patient has become rather lethargic. Sometimes instead of walking he would just laying forward. He has been forgetting things. Decreased appetite and not eating. Sometimes uses start laughing. Has also noticed during the interview. And then he will does often become quiet and sleepy. And maybe not answer. In the past he had to be taken down to [facility] and had 3 months of treatment down there. No fever no chills. Psychiatry consulted. Daytime dose of Zyprexa cut back to 5 mg and the p.m. dose of Zyprexa cutback to 10 mg, Klonopin was discontinued except for 0.5 mg at night.. Dose of Paxil cutback to 20 mg. blood pressures running low so Zestril was discontinued. Lopressor adjusted to 12.5 twice daily. Today: Patient has done much better. More awake. Eating well. Has been up in a chair. I spoke to the patient's sister over the phone. I explained the medication changes. Patient has to follow-up with his psychiatrist Dr. Ricketts. And further adjustments made accordingly. Discussion and discharge planning more than 35 minutes Consultation: Psychiatry Past medical history to include: Tuberous sclerosis, diabetes, hyperlipidemia, mental retardation, seizure disorder, depression Social history: Does not smoke or drink alcohol. Lives at . Physical examination: VITAL SIGNS: 97.9, 79, 18, 96.68, 95% room air GENERAL: BMI 25.6, reclining in bed, awake EYES: Pupils equal. Conjunctiva normal. HEENT: External appearance of nose and ears normal, oral cavity grossly normal. NECK: JVD not raised; masses not palpable. HEART: First and second heart sounds are normal; no edema. LUNGS: Respiratory rate normal; clear to auscultation. ABDOMEN: Soft, nontender, liver spleen not palpable, no masses palpable. PSYCH: Answering questions, appropriate INVESTIGATIONS, reviewed in the clinical context: WBC 7.1 hemoglobin 11.2 platelets 195 potassium 4 creatinine 0.78 Urine positive for ketones Urine drug screen negative Coronavirus [PCR] not detected Assessment and plan: -Acute metabolic encephalopathy from medications.-Improved Dose Zyprexa cutback in half. Paxil cutback to 20 mg to daytime. Klonopin daytime dose elevated leaving it point 5 at night. -Paroxysmal atrial fibrillation , currently sinus rhythm Continue eliquis. Lopressor -Diabetes mellitus type 2 on oral hypoglycemic . Follow Accu-Cheks -Chronic epilepsy disorder Continue with Keppra, Depakote -Depression otherwise specified -Hypothyroid Continue with Synthroid -Hyperlipidemia Continue with Lipitor -Hypotension DC DESMOND inhibitor. Change Lopressor to 12.5 twice a day Disposition: [facility] home Patient Condition at Discharge: Good Plan - Discharge Summary Discharge Rx Participant: No New Discharge Prescriptions: New Daixtiql-Kkrgaejlf-Ch Otic [Cortisporin Otic Soln] 4 drops RIGHT EAR QID ml PARoxetine [Paxil] 20 mg PO DAILY #30 tab OLANZapine [ZyPREXA] 5 mg PO DAILY@1200 #30 tab Continue Divalproex [Depakote] 500 mg PO BID@0600,1700 levETIRAcetam [Keppra] 500 mg PO BID@0600,2100 Levothyroxine Sodium [Levo-T] 112 mcg PO DAILY@0600 Divalproex Sodium [Depakote] 1,000 mg PO HS Docusate [Colace] 100 mg PO DAILY@0600 traZODone HCL [Desyrel] 100 mg PO HS metFORMIN HCL [Glucophage] 500 mg PO BID@0600,1700 Apixaban [Eliquis] 5 mg PO BID@0600,2100 Atorvastatin [Lipitor] 40 mg PO HS Changed clonazePAM [KlonoPIN] 0.5 mg PO HS #0 Metoprolol Tartrate [Lopressor] 12.5 mg PO BID #0 OLANZapine [ZyPREXA] 10 mg PO HS #0 Discontinued lisinopriL [Zestril] 2.5 mg PO DAILY@0600 OLANZapine [ZyPREXA] 10 mg PO DAILY@1200 PARoxetine HCL [Paxil] 40 mg PO HS clonazePAM [KlonoPIN] 1 mg PO HS Discharge Medication List Divalproex [Depakote] 500 mg PO BID@0600,1700 02/08/17 [History] levETIRAcetam [Keppra] 500 mg PO BID@0600,2100 02/08/17 [History] Levothyroxine Sodium [Levo-T] 112 mcg PO DAILY@0600 12/23/19 [History] Apixaban [Eliquis] 5 mg PO BID@0600,2100 03/04/21 [History] Atorvastatin [Lipitor] 40 mg PO HS 03/04/21 [History] Divalproex Sodium [Depakote] 1,000 mg PO HS 03/04/21 [History] Docusate [Colace] 100 mg PO DAILY@0600 03/04/21 [History] metFORMIN HCL [Glucophage] 500 mg PO BID@0600,1700 03/04/21 [History] traZODone HCL [Desyrel] 100 mg PO HS 03/04/21 [History] Metoprolol Tartrate [Lopressor] 12.5 mg PO BID #0 03/07/21 [Rx] [place]-Wihrhnxrl-Ch Otic [Cortisporin Otic Soln] 4 drops RIGHT EAR QID ml 03/07/21 [Rx] OLANZapine [ZyPREXA] 5 mg PO DAILY@1200 #30 tab 03/07/21 [Rx] OLANZapine [ZyPREXA] 10 mg PO HS #0 03/07/21 [Rx] PARoxetine [Paxil] 20 mg PO DAILY #30 tab 03/07/21 [Rx] clonazePAM [KlonoPIN] 0.5 mg PO HS #0 03/07/21 [Rx] Follow up Appointment(s)/Referral(s): Wilbert Ricketts DO [REFERRING] - 1 Week (please call and schedule appointment ) Paulino Hermosillo MD [REFERRING] - 1-2 days (please call and schedule appointment ) Patient Instructions/Handouts: Altered Mental Status (GEN) Discharge Disposition: OTHER INSTITUTION NOT DEFINED
== END 2021-03-07 15:26 | disposition home or self-care (01) | DRG 92 ==
LOC: EC 12:54 → 4SSUR 15:26 → OBSVTOIN 15:26 → 4SSUR 16:29
PROVIDERS: ADMIT Hospitalist; ATTEND Hospitalist
DX: G92 Toxic encephalopathy (principal); Q85.1 Tuberous sclerosis; E03.9 Hypothyroidism, unspecified; T43.595A Adverse effect of other antipsychotics and neuroleptics, initial encounter; E11.9 Type 2 diabetes mellitus without complications; E78.5 Hyperlipidemia, unspecified; F32.9 Major depressive disorder, single episode, unspecified; F79 Unspecified intellectual disabilities; G40.909 Epilepsy, unspecified, not intractable, without status epilepticus; H60.91 Unspecified otitis externa, right ear; I48.0 Paroxysmal atrial fibrillation; Z79.01 Long term (current) use of anticoagulants; Z79.84 Long term (current) use of oral hypoglycemic drugs; Z20.822 Contact with and (suspected) exposure to COVID-19; Z79.890 Hormone replacement therapy; Z79.899 Other long term (current) drug therapy; Z80.3 Family history of malignant neoplasm of breast; Z81.1 Family history of alcohol abuse and dependence; Z82.49 Family history of ischemic heart disease and other diseases of the circulatory system; Z83.3 Family history of diabetes mellitus
CPT/HCPCS: 36415; 70450; 71046; 80053; 80164; 80306; 81003; 84484; 85025; 85610; 85730; 87635; 99285